=== PATIENT | female | born 1935 | race Caucasian/White ===

== ENCOUNTER 2017-10-17 12:09 | Emergency (ER) | payer MEDICARE ==
[~2017-10-17] VITALS: Ht 162.6 cm; Wt 59.0 kg
[~2017-10-17 12:09] MED LIST: AMLO10TA2 PO; ASPI-482 PO; BUDE10.2 IH; CARV25TA2 PO; CEPH-263 PO; CLOP75TA57 PO; ENAL20TA PO; HYDR-963 PO; LEVO500T59 PO; METF500T4 PO; PANT40TA5 PO; PROAIR HFA8.5 GM INH; PROP150T PO; SUCR1TAB35 PO
[2017-10-17] MEDS ORDERED: ASPIRIN CHEWABLE 81 MG TABLET. PO ONE (12:45)
[2017-10-17] MEDS ORDERED: FAMOTIDINE 20 MG/2 ML VIAL IVP ONE (12:45)
[2017-10-17 12:59] LABS: BASO % 1 % (0-3); EOS % 2 % (0-3); HEMATOCRIT 38.2 % (36.0-47.0); HEMOGLOBIN 12.9 g/dL (12.0-15.5); LYMPH # 1.3 x10^3/uL (1.0-4.8); LYMPH % 18 % (24-48); MEAN CORPUSCULAR HEMOGLOBIN 32 pg (25-35); MEAN CORPUSCULAR HGB CONC 34 g/dL (31-37); MEAN CORPUSCULAR VOLUME 94 fL (79-100); MONO % 4 % (0-9); NEUT % 75 % (31-73); PLATELET COUNT 242 x10^3/uL (140-400); RED BLOOD COUNT 4.05 x10^6/uL (3.50-5.40); RED CELL DISTRIBUTION WIDTH 14.3 % (11.5-14.5); WHITE BLOOD COUNT 7.4 x10^3/uL (4.0-11.0)
[2017-10-17 13:09] LABS: INR 0.9 (0.8-1.1); PROTHROMBIN TIME PATIENT 11.9 SEC (11.7-14.0)
--- NOTE | 2017-10-17 13:15 | RAD ---
Single view chest History:chest pain An AP view of the chest is submitted. Comparison: 03/08/2016. Findings: There is no significant infiltrate, pleural effusion, or pneumothorax. Pericardial cardiac silhouette is similar, borderline enlarged. There is again hiatal hernia. There again has been a median sternotomy. There is again left electronic cardiac device. There is probable emphysema. There is atherosclerotic calcification greater near aortic arch. Impression: 1. No acute radiographic abnormality is identified.
[2017-10-17 13:16] LABS: CALCIUM 8.6 mg/dL (8.5-10.1); CREATININE 1.6 mg/dL (0.6-1.0); GFR 30.7; POTASSIUM 4.3 mmol/L (3.5-5.1)
[2017-10-17 13:22] LABS: ALBUMIN 3.2 g/dL (3.4-5.0); ALBUMIN/GLOBULIN RATIO 0.8 (1.0-1.7); TOTAL BILIRUBIN 0.2 mg/dL (0.2-1.0)
[2017-10-17 13:29] LABS: CREATINE KINASE 65 U/L (26-192)
--- NOTE | 2017-10-17 13:39 | RAD ---
CT ABDOMEN PELVIS WO CONTRAST History:Bilateral flank pain, back pain Technique: Noncontrast CT imaging was performed of the abdomen and pelvis, multiplanar reconstruction images submitted. Exposure: One or more of the following individualized dose reduction techniques were utilized for this exam: 1. Automated exposure control.2. Adjustment of the mA and/or KV according to patient size.3. Use of iterative reconstruction technique. Comparison: 04/30/2015 Findings:There is moderate to large hiatal hernia greater than previously. There has been a median sternotomy. There is mitral annular calcification There is no significant dependent pleural fluid. Accurate evaluation of the abdominal visceral organs is limited without intravenous contrast. There is no obvious focal abnormality of the liver, pancreas, spleen. There is atherosclerotic calcification of abdominal aorta. There is infrarenal abdominal aortic aneurysm up to 3 cm slightly greater than previously. There is atherosclerotic calcification of the iliac arteries bilaterally, left greater than right. There is also plaque near the renal artery origins bilaterally. Gallbladder is absent. There is small 2 to 3 mm left renal calculus. Small calculus right renal pelvis may be vascular in etiology. There is 3 to 4 mm superior right renal calculus. Ureters in the pelvis are difficult to identified. Accurate evaluation of bowel is limited without oral contrast. There is no significant free air or free fluid. There is retained stool in the colon, some questionable mild diffuse colonic wall thickening such as of the descending and ascending colon area appendix is not clearly identified if still present. Urinary bladder is somewhat distended. There is degenerative disc disease greatest at L3-4. There is bone demineralization. Impression: 1.There are small nonobstructive renal calculi bilaterally. There is no significant hydronephrosis. 2. There is mild aneurysmal dilatation of the infrarenal abdominal aorta up to 3 cm. 3. There is moderate to large hiatal hernia. 4. Limited evaluation without oral contrast, mild colonic wall thickening is not excluded as could be seen with mild colitis. There is some retained stool the colon. There is no significant inflammatory type change about the bowel.
[2017-10-17 14:48] LABS: BILIRUBIN,URINE NEGATIVE (NEG); GLUCOSE,URINE 100 mg/dL (NEG); NITRITE,URINE NEGATIVE (NEG); PH,URINE 5.5; PROTEIN,URINE >=300 mg/dL (NEG-TRACE); UROBILINOGEN,URINE 0.2 mg/dL (0.2 mg/dL)
[2017-10-17 14:55] LABS: BACTERIA,URINE MANY /HPF (0-FEW); SQUAMOUS EPITHELIAL CELL,UR MOD /LPF; WBC,URINE >40 /HPF (0-4)
[2017-10-17] MEDS ORDERED: CIPROFLOXACIN 400MG PREMIX 200 ML IV ONE (15:30)
[2017-10-17] MEDS ORDERED: CIPR500T94 PO (16:16)
[2017-10-17] MEDS ORDERED: HYDR-971 PO (16:16)
[2017-10-17] MEDS ORDERED: ONDA4TAB10 SL (16:16)
[2017-10-17] MEDS ORDERED: TAMS0.4C97 PO (16:16)
--- NOTE | 2017-10-17 16:17 | PHYS DOC ---
Past Medical History Past Medical History: Anemia, Arrhythmia, Hypertension, Lung Disease, P.U.D. Past Surgical History: Appendectomy, Cholecystectomy, Coronary Bypass Surgery, Pacemaker, Other Additional Past Surgical Histo: Right femoral bypass, pacer/defib,TOE AMPUTATION Additional Information: 1 PPD Alcohol Use: None Drug Use: None Adult General Chief Complaint Chief Complaint: ABDOMINAL PAIN HPI HPI Patient is a 82 year old female with a history of hypertension, arrhythmias, lung disease, who presents today with left flank pain that began yesterday. Patient denies any nausea vomiting. Denies any hematuria urgency or frequency. She is a very poor historian. She is very hard of hearing. Review of Systems Review of Systems Constitutional: Denies fever or chills [] Eyes: Denies change in visual acuity, redness, or eye pain [] HENT: Denies nasal congestion or sore throat [] Respiratory: Denies cough or shortness of breath [] Cardiovascular: No additional information not addressed in HPI [] GI: Denies abdominal pain, nausea, vomiting, bloody stools or diarrhea [] : Reports left flank pain. Denies dysuria or hematuria [] Musculoskeletal: Denies back pain or joint pain [] Integument: Denies rash or skin lesions [] Neurologic: Denies headache, focal weakness or sensory changes [] All other systems were reviewed and found to be within normal limits, except as documented in this note. Current Medications Current Medications Current Medications Medications (Trade) Dose Ordered Sig/Megan Start Time Stop Time Status Last Admin Dose Admin Aspirin (Children'S Aspirin) 324 mg 1X ONCE 10/17/17 12:45 10/17/17 12:50 DC 10/17/17 13:03 324 MG Ciprofloxacin/ Dextrose 200 ml @ 200 mls/hr 1X ONCE 10/17/17 15:30 10/17/17 16:29 10/17/17 15:25 200 MLS/HR Famotidine (Pepcid Vial) 20 mg 1X ONCE 10/17/17 12:45 10/17/17 12:50 DC 10/17/17 13:04 20 MG Allergies Allergies Allergies Coded Allergies Type Severity Reaction Last Updated Verified No Known Drug Allergies 09/11/15 No Physical Exam Physical Exam Constitutional: Well developed, well nourished, no acute distress, non-toxic appearance. [] HENT: Normocephalic, atraumatic, bilateral external ears normal, oropharynx moist, no oral exudates, nose normal. [] Eyes: PERRLA, EOMI, conjunctiva normal, no discharge. [] Neck: Normal range of motion, no tenderness, supple, no stridor. [] Cardiovascular: Midline old healed incision on the chest. Left upper chest pacemaker. Heart rate regular rhythm. Lungs & Thorax: Bilateral breath sounds clear to auscultation [] Abdomen: Bowel sounds normal, soft, no tenderness, no masses, no pulsatile masses. [] Skin: Warm, dry, no erythema, no rash. [] Back: No tenderness, mild left CVA tenderness. [] Extremities: No tenderness, no cyanosis, no clubbing, ROM intact, no edema. [] Neurologic: Alert and oriented X 3, normal motor function, normal sensory function, no focal deficits noted. [] Psychologic: Affect normal, judgement normal, mood normal. [] Current Patient Data Vital Signs Vital Signs Date Time Temp Pulse Resp B/P (MAP) Pulse Ox O2 Delivery O2 Flow Rate FiO2 10/17/17 14:20 78 17 152/81 (104) 94 Room Air 10/17/17 12:11 97.7 97.7 Lab Values Laboratory Tests Test 10/17/17 12:34 10/17/17 14:30 White Blood Count 7.4 x10^3/uL (4.0-11.0) Red Blood Count 4.05 x10^6/uL (3.50-5.40) Hemoglobin 12.9 g/dL (12.0-15.5) Hematocrit 38.2 % (36.0-47.0) Mean Corpuscular Volume 94 fL (79-100) Mean Corpuscular Hemoglobin 32 pg (25-35) Mean Corpuscular Hemoglobin Concent 34 g/dL (31-37) Red Cell Distribution Width 14.3 % (11.5-14.5) Platelet Count 242 x10^3/uL (140-400) Neutrophils (%) (Auto) 75 % (31-73) H Lymphocytes (%) (Auto) 18 % (24-48) L Monocytes (%) (Auto) 4 % (0-9) Eosinophils (%) (Auto) 2 % (0-3) Basophils (%) (Auto) 1 % (0-3) Neutrophils # (Auto) 5.6 x10^3uL (1.8-7.7) Lymphocytes # (Auto) 1.3 x10^3/uL (1.0-4.8) Monocytes # (Auto) 0.3 x10^3/uL (0.0-1.1) Eosinophils # (Auto) 0.2 x10^3/uL (0.0-0.7) Basophils # (Auto) 0.0 x10^3/uL (0.0-0.2) Prothrombin Time 11.9 SEC (11.7-14.0) Prothrombin Time INR 0.9 (0.8-1.1) Sodium Level 132 mmol/L (136-145) L Potassium Level 4.3 mmol/L (3.5-5.1) Chloride Level 99 mmol/L (98-107) Carbon Dioxide Level 24 mmol/L (21-32) Anion Gap 9 (6-14) Blood Urea Nitrogen 23 mg/dL (7-20) H Creatinine 1.6 mg/dL (0.6-1.0) H Estimated GFR (Cockcroft-Gault) 30.7 BUN/Creatinine Ratio 14 (6-20) Glucose Level 315 mg/dL (70-99) H Calcium Level 8.6 mg/dL (8.5-10.1) Magnesium Level 2.0 mg/dL (1.8-2.4) Total Bilirubin 0.2 mg/dL (0.2-1.0) Aspartate Amino Transferase (AST) 17 U/L (15-37) Alanine Aminotransferase (ALT) 13 U/L (14-59) L Alkaline Phosphatase 83 U/L (46-116) Creatine Kinase 65 U/L (26-192) Creatine Kinase MB (Mass) 1.0 ng/mL (0.0-3.6) Creatine Kinase MB Relative Index % (0-4) Troponin I Quantitative < 0.017 ng/mL (0.000-0.055) PP-Jms-R-Type Natriuretic Peptide 818 pg/mL (0-449) H Total Protein 7.0 g/dL (6.4-8.2) Albumin 3.2 g/dL (3.4-5.0) L Albumin/Globulin Ratio 0.8 (1.0-1.7) L Thyroid Stimulating Hormone (TSH) 6.186 uIU/mL (0.358-3.74) H Urine Collection Type Unknown Urine Color Yellow Urine Clarity Turbid Urine pH 5.5 Urine Specific [place] 1.015 Urine Protein >=300 mg/dL (NEG-TRACE) Urine Glucose (UA) 100 mg/dL (NEG) Urine Ketones (Stick) Negative mg/dL (NEG) Urine Blood Moderate (NEG) Urine Nitrite Negative (NEG) Urine Bilirubin Negative (NEG) Urine Urobilinogen Dipstick 0.2 mg/dL (0.2 mg/dL) Urine Leukocyte Esterase Large (NEG) Urine RBC 6-10 /HPF (0-2) Urine WBC >40 /HPF (0-4) Urine Squamous Epithelial Cells Mod /LPF Urine Bacteria Many /HPF (0-FEW) Laboratory Tests 10/17/17 12:34 Laboratory Tests 10/17/17 12:34 EKG EKG [] Radiology/Procedures Radiology/Procedures []PROCEDURE: CT ABDOMEN PELVIS WO CONTRAST CT ABDOMEN PELVIS WO CONTRAST History:Bilateral flank pain, back pain Technique: Noncontrast CT imaging was performed of the abdomen and pelvis, multiplanar reconstruction images submitted. Exposure: One or more of the following individualized dose reduction techniques were utilized for this exam: 1. Automated exposure control.2. Adjustment of the mA and/or KV according to patient size.3. Use of iterative reconstruction technique. Comparison: 04/30/2015 Findings:There is moderate to large hiatal hernia greater than previously. There has been a median sternotomy. There is mitral annular calcification There is no significant dependent pleural fluid. Accurate evaluation of the abdominal visceral organs is limited without intravenous contrast. There is no obvious focal abnormality of the liver, pancreas, spleen. There is atherosclerotic calcification of abdominal aorta. There is infrarenal abdominal aortic aneurysm up to 3 cm slightly greater than previously. There is atherosclerotic calcification of the iliac arteries bilaterally, left greater than right. There is also plaque near the renal artery origins bilaterally. Gallbladder is absent. There is small 2 to 3 mm left renal calculus. Small calculus right renal pelvis may be vascular in etiology. There is 3 to 4 mm superior right renal calculus. Ureters in the pelvis are difficult to identified. Accurate evaluation of bowel is limited without oral contrast. There is no significant free air or free fluid. There is retained stool in the colon, some questionable mild diffuse colonic wall thickening such as of the descending and ascending colon area appendix is not clearly identified if still present. Urinary bladder is somewhat distended. There is degenerative disc disease greatest at L3-4. There is bone demineralization. Impression: 1.There are small nonobstructive renal calculi bilaterally. There is no significant hydronephrosis. 2. There is mild aneurysmal dilatation of the infrarenal abdominal aorta up to 3 cm. 3. There is moderate to large hiatal hernia. 4. Limited evaluation without oral contrast, mild colonic wall thickening is not excluded as could be seen with mild colitis. There is some retained stool the colon. There is no significant inflammatory type change about the bowel. DICTATED and SIGNED BY: GAB CAZARES MD DATE: 10/17/17 1320 CC: CHRISSY FELTON APRN; NON,STAFF; NALLELY SALDANA MD ~ Course & Med Decision Making Course & Med Decision Making Pertinent Labs and Imaging studies reviewed. (See chart for details) Patient is in the ED with left flank pain. Urine analysis is noted for infection. CBC with no acute findings, CMP with creatinine of 1.6 and BUN 23. Patient seemed to have high creatinine from her previous labs. She was given a liter of fluids in the ED. CT of the abdomen and pelvic was noted for small nonobstructive bilateral renal calculi. She was also noted for mild infrarenal abdominal aneurysm. Patient was instructed to follow-up with the PCP as well as expenditure requisition clerk for the aneurysm. She was given Cipro in the ED and discharged with Cipro. She was instructed to push fluids. She was also discharged with Flomax. Her pain is well controlled. She was provided return precautions and discharged in stable condition. Dragon Disclaimer Dragon Disclaimer This electronic medical record was generated, in whole or in part, using a voice recognition dictation system. Departure Departure Impression: Primary Impression: Renal calculi Additional Impressions: Pyelonephritis Aneurysm Disposition: 01 HOME, SELF-CARE Condition: STABLE Referrals: NALLELY SALDANA MD (PCP) follow up in the course of this week Patient Instructions: Kidney Stones, Pyelonephritis, Adult, [id number] Additional Instructions: You were seen for flank pain. Your CT of the abdomen and pelvic was noted for nonobstructing bilateral renal calculi/kidney stones. You also have infection in your urine. Take the antibiotics as prescribed. Take Flomax as prescribed. Push fluids. Take the pain medicine as needed for pain. Your Ct was noted for mild aneurysmal dilatation of the infrarenal abdominal aorta . This can be followed up with your expenditure requisition clerk and primary care doctor. Please return to the ED at any point your symptoms worsen. Scripts Hydrocodone/Apap 5-325 (NORCO 5-325 TABLET) 1 Each Tablet 1 TAB PO Q6-8HRS Y for PAIN, #14 TAB Prov: CHRISSY FELTON APRN 10/17/17 Ondansetron (ZOFRAN ODT) 4 Mg Tab.rapdis 1 TAB SL Q8HRS, #15 TAB Prov: CHRISSY FELTON APRN 10/17/17 Ciprofloxacin Hcl (CIPRO) 500 Mg Tablet 1 TAB PO BID, #14 TAB Prov: CHRISSY FELTON APRN 10/17/17 Tamsulosin Hcl (FLOMAX) 0.4 Mg Cap.er.24h 1 CAP PO DAILY, #6 CAP 0 Refills Prov: CHRISSY FELTON APRN 10/17/17 Problem Qualifiers CHRISSY FELTON APRN Oct 17, 2017 16:16
[2017-10-17 16:25] VITALS: BP 184/99
--- NOTE | 2017-10-18 06:09 | EKG ---
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
[2017-10-18] MEDS ORDERED: CIPROFLOXACIN 400MG PREMIX 200 ML IV SCH (15:00)
--- NOTE | 2017-10-20 16:25 | VNOTE ---
CALL BACK NOTE CALL BACK Microbiology 10/17/17 Urine Culture - Final, Complete 10/17/17 Urine Culture Result 1 ([place]) - Final, Complete 10/17/17 Antimicrobic Susceptibility - Final, Complete Patient was put on Cipro for pyelonephritis, culture shows she is resistant to it. Called patient left voicemail. CHRISSY FELTON APRN Oct 20, 2017 16:25
== END 2017-10-17 16:41 | disposition home or self-care (01) ==
LOC: ER 12:09
DX: N20.0 Calculus of kidney (principal); N12 Tubulo-interstitial nephritis, not specified as acute or chronic; I71.4 Abdominal aortic aneurysm, without rupture; I10 Essential (primary) hypertension; F17.200 Nicotine dependence, unspecified, uncomplicated; Z86.2 Personal history of diseases of the blood and blood-forming organs and certain disorders involving the immune mechanism; Z87.11 Personal history of peptic ulcer disease; Z90.49 Acquired absence of other specified parts of digestive tract; Z95.0 Presence of cardiac pacemaker; Z95.1 Presence of aortocoronary bypass graft
CPT/HCPCS: 36415; 71010; 74176; 80053; 81001; 82553; 83735; 83880; 84443; 84484; 85025; 85610; 87086; 87186; 93005; 96365; 96375; 99285; J0744; S0028

== ENCOUNTER 2017-11-03 11:29 | Emergency (ER) | payer MEDICARE ==
[~2017-11-03] VITALS: Ht 160 cm; Wt 59.9 kg
[~2017-11-03 11:29] MED LIST changes: +CIPR500T94 PO; +HYDR-971 PO; +ONDA4TAB10 SL; +TAMS0.4C97 PO
[2017-11-03] MEDS ORDERED: CYCLOBENZAPRINE 10 MG TABLET. PO ONE (12:00)
[2017-11-03] MEDS ORDERED: KETOROLAC 60 MG/2 ML INJ. IM ONE (12:00)
[2017-11-03] MEDS ORDERED: MORPHINE SULFATE 10 MG/ML VIAL. IM ONE (12:00)
--- NOTE | 2017-11-03 12:10 | PHYS DOC ---
Past Medical History Past Medical History: Anemia, Arrhythmia, Hypertension, Lung Disease, P.U.D. Past Surgical History: Appendectomy, Cholecystectomy, Coronary Bypass Surgery, Pacemaker, Other Additional Past Surgical Histo: Right femoral bypass, pacer/defib,TOE AMPUTATION Alcohol Use: None Drug Use: None Adult General Chief Complaint Chief Complaint: BACK PAIN OR INJURY HPI HPI Patient is a 82 year old female with a history of hypertension, anemia, PUD, who presents today with mild to moderate left low back pain chronic in nature but worse in the last 1 week. Patient denies any known injury. Denies any pain radiating to bilateral lower extremities. She states her pain is worse on activities. She states her PCP Dr. Nallely Gonzalez sent her to the ED to get a pain shot. She is currently on hydrocodone. Patient denies any loss of bowel bladder function. Review of Systems Review of Systems Constitutional: Denies fever or chills : Denies dysuria or hematuria [] Musculoskeletal: Mild to moderate left low back pain Integument: Denies rash or skin lesions [] Neurologic: Denies headache, focal weakness or sensory changes [] All other systems were reviewed and found to be within normal limits, except as documented in this note. Current Medications Current Medications Current Medications Medications (Trade) Dose Ordered Sig/Megan Start Time Stop Time Status Last Admin Dose Admin Cyclobenzaprine HCl (Flexeril) 10 mg 1X ONCE 11/03/17 12:00 11/03/17 12:02 DC Ketorolac Tromethamine (Toradol Im) 30 mg 1X ONCE 11/03/17 12:00 11/03/17 12:01 DC Morphine Sulfate 5 mg 1X ONCE 11/03/17 12:00 11/03/17 12:01 DC Allergies Allergies Allergies Coded Allergies Type Severity Reaction Last Updated Verified No Known Drug Allergies 09/11/15 No Physical Exam Physical Exam Constitutional: Well developed, well nourished, no acute distress, non-toxic appearance. [] Abdomen: Bowel sounds normal, soft, no tenderness, no masses, no pulsatile masses. [] Skin: Warm, dry, no erythema, no rash. [] Back: Scoliosis noted on exam. Slight tenderness on the left lumbar spine diffusely. No midline lumbar spine tenderness, no CVA tenderness. [] Extremities: No tenderness, no cyanosis, no clubbing, ROM intact, no edema. [] Neurologic: Alert and oriented X 3, normal motor function, normal sensory function, no focal deficits noted. [] Psychologic: Affect normal, judgement normal, mood normal. [] Current Patient Data Vital Signs Vital Signs Date Time Temp Pulse Resp B/P (MAP) Pulse Ox O2 Delivery O2 Flow Rate FiO2 11/03/17 11:50 98.0 83 18 96 Room Air 98.0 EKG EKG [] Radiology/Procedures Radiology/Procedures [] Course & Med Decision Making Course & Med Decision Making Pertinent Labs and Imaging studies reviewed. (See chart for details) Patient is in the ED requesting pain shot for chronic back pain. She is currently on hydrocodone. She states PCP sent her to the ED for the pain shot. She was given morphine Toradol and cyclobenzaprine and discharge. She was instructed to continue taking her hydrocodone. She was given prescription for cyclobenzaprine. Given instructions to follow-up with the pain clinic. Dragon Disclaimer Dragon Disclaimer This electronic medical record was generated, in whole or in part, using a voice recognition dictation system. Departure Departure Impression: Primary Impression: Chronic low back pain Disposition: 01 HOME, SELF-CARE Condition: STABLE Referrals: NALLELY SALDANA MD (PCP) follow up as soon as you can BHARGAVI YBARRA MD follow up in one week Patient Instructions: Back Pain, Adult, [id number] Additional Instructions: You were seen for chronic back pain. Continue taking hydrocodone at home. We sent you home with cyclobenzaprine which is a muscle relaxer. Take it as needed. Follow-up with your own doctor in 1-2 weeks. Scripts Cyclobenzaprine Hcl (CYCLOBENZAPRINE HCL) 10 Mg Tablet 1 TAB PO TID, #30 TAB Prov: CHRISSY FELTON APRN 11/03/17 Problem Qualifiers Primary Impression: Chronic low back pain Back pain laterality: left Sciatica presence: without sciatica Qualified Codes: M54.5 - Low back pain; G89.29 - Other chronic pain CHRISSY FELTON APRN Nov 03, 2017 12:10
[2017-11-03] MEDS ORDERED: CYCL10TA2 PO (12:15)
[2017-11-03] MEDS ORDERED: HYDROcodone/APAP 5/325MG 1 TAB TABLET ONE (12:24)
[2017-11-03 13:01] VITALS: BP 138/68
== END 2017-11-03 13:01 | disposition home or self-care (01) ==
LOC: ER 11:29
DX: G89.29 Other chronic pain (principal); M54.5 Low back pain; I10 Essential (primary) hypertension; Z87.11 Personal history of peptic ulcer disease; Z95.0 Presence of cardiac pacemaker; Z90.49 Acquired absence of other specified parts of digestive tract; Z95.1 Presence of aortocoronary bypass graft
CPT/HCPCS: 96372; 99284; J1885; J2270

== ENCOUNTER → 2017-11-09 | Outpatient (CLI) | payer MEDICARE ==
[2017-11-03 13:01] VITALS: BP 138/68
[~2017-11-09] MED LIST changes: +CYCL10TA2 PO
--- NOTE | 2017-11-09 11:57 | RAD ---
Indication: Back pain. Compression fractures of T7-T10. Technique: CT of the thoracic spine without IV contrast with multiplanar reformats. Comparison: Plain film from 10/28/2017 Findings: Compression deformity of the T7 vertebral body noted with loss of more than 50% of body height. There is no retropulsion in the spinal canal there is no involvement of the posterior elements. There is no evidence of soft tissue component associated with this compression deformity. No other compression deformities noted. Diffuse osteopenia. Mild multilevel intervertebral disc space narrowing with endplate sclerosis and small osteophyte formation compatible with degenerative disc disease. There are no blastic or lytic lesions in the thoracic spine. The facet joints are in normal anatomic alignment. Biapical pleural scarring noted. Subsegmental atelectasis or scarring seen in the left lower lobe. Diffuse atherosclerotic disease of the thoracic and abdominal aorta are noted. Large sliding type hiatal hernia. 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 Nonobstructing bilateral renal stones. Impression: 1. Most likely an osteoporotic fracture of the T7 vertebral body with no retropulsion in the spinal canal. 2. Large sliding sidle hernia. 3. Diffuse advanced atherosclerotic disease of the aorta. PQRS Compliance Statement: One or more of the following individualized dose reduction techniques were utilized for this examination: 1. Automated exposure control 2. Adjustment of the mA and/or kV according to patient size 3. Use of iterative reconstruction technique
--- NOTE | 2017-11-09 14:29 | RAD ---
Nuclear medicine bone scan Indication: Compression fracture of the thoracic spine Technique: Planar anterior, posterior and lateral views of the thoracic spine obtained after infusion of 25.5 mCi of technetium 99m MDP. Comparison: Same day the thoracic spine Findings: Focal intense uptake of the benefit of pharmaceutical is seen in T7 vertebral body corresponding to compression deformity seen on the same day CT thoracic spine. No other areas of radial pharmaceutical uptake. Impression: Findings consistent with acute to subacute T7 compression fracture.
== END | disposition home or self-care (01) ==
LOC: NM 08:15
PROVIDERS: ATTEND Surgery
DX: M48.54XA Collapsed vertebra, not elsewhere classified, thoracic region, initial encounter for fracture (principal); I70.0 Atherosclerosis of aorta; N20.0 Calculus of kidney; K44.9 Diaphragmatic hernia without obstruction or gangrene; E11.9 Type 2 diabetes mellitus without complications; Z95.0 Presence of cardiac pacemaker; Z87.891 Personal history of nicotine dependence; Z79.01 Long term (current) use of anticoagulants
CPT/HCPCS: 72128; 78300; 96374; A9503

== ENCOUNTER 2017-11-16 08:03 | Outpatient (CLI) | payer MEDICARE ==
[~2017-11-16] VITALS: Ht 162.6 cm; Wt 59.0 kg
[2017-11-16] VITALS (9 sets, daily range): BP systolic 128–167; BP diastolic 69–95
[2017-11-16 08:51] LABS: BASO % 1 % (0-3); EOS % 2 % (0-3); HEMOGLOBIN 12.9 g/dL (12.0-15.5); LYMPH # 1.1 x10^3/uL (1.0-4.8); LYMPH % 19 % (24-48); MEAN CORPUSCULAR HEMOGLOBIN 31 pg (25-35); MEAN CORPUSCULAR HGB CONC 34 g/dL (31-37); MEAN CORPUSCULAR VOLUME 92 fL (79-100); MONO % 10 % (0-9); NEUT % 68 % (31-73); PLATELET COUNT 277 x10^3/uL (140-400); RED BLOOD COUNT 4.14 x10^6/uL (3.50-5.40); RED CELL DISTRIBUTION WIDTH 14.2 % (11.5-14.5); WHITE BLOOD COUNT 5.8 x10^3/uL (4.0-11.0)
[2017-11-16 09:01] LABS: PROTHROMBIN TIME PATIENT 12.4 SEC (11.7-14.0)
[2017-11-16 09:13] LABS: CALCIUM 8.4 mg/dL (8.5-10.1); CREATININE 1.3 mg/dL (0.6-1.0); POTASSIUM 4.5 mmol/L (3.5-5.1)
[2017-11-16] MEDS ORDERED: GLIP5TAB10 PO (09:39)
[2017-11-16] MEDS ORDERED: LIDOCAINE WITH 8.4% SOD BICARB 3 ML DISP.SYRIN. IJ ONE ×2 (10:12→11:15)
[2017-11-16] MEDS ORDERED: fentaNYL PF VIAL 100 MCG/2 ML VIAL ONE ×2 (10:14→10:54)
[2017-11-16] MEDS ORDERED: MIDAZOLAM HCL/PF 2 MG/2 ML VIAL. ONE ×2 (10:14→10:54)
[2017-11-16] MEDS ORDERED: IOHEXOL 240 MG/ML 50ML VIAL. ONE (10:51)
[2017-11-16] MEDS ORDERED: LABETALOL 20 MG/4 ML DISP.SYRIN. ONE (11:09)
[2017-11-16] MEDS ORDERED: fentaNYL PF VIAL 100 MCG/2 ML VIAL IV ONE (11:15)
[2017-11-16] MEDS ORDERED: LABETALOL 20 MG/4 ML DISP.SYRIN. IVP ONE (11:15)
[2017-11-16] MEDS ORDERED: IOHEXOL 240 MG/ML 50ML VIAL. IJ ONE (11:15)
[2017-11-16] MEDS ORDERED: MIDAZOLAM HCL/PF 2 MG/2 ML VIAL. IV ONE (11:15)
--- NOTE | 2017-11-16 12:15 | PDOC ---
MODERATE SEDATION ASSESSMENT RISKS/ALTERNATIVES Risks/Alternatives Risks and alternatives of this type of sedation and procedure discussed with: RISK/ALTERNATIVES: Patient H & P ON CHART H & P H & P on chart and reviewed for co-morbid conditions and appropriate labs. H&P ON CHART: Yes STATUS PREG STATUS ASSESSED: Yes MEDS/ALLERGIES REVIEWED Meds/Allergies Reviewed Medications and Allergies including time and route of recently administered narcotics and sedatives. MEDS/ALLERGIES REVIEWED: Yes ASA RATING ASA RATING: II AIRWAY ASSESSMENT Airway Assessment Airway patency, oral function limitations, presence of caps, crowns, dentures, partials, and ability to extend neck assessed. AIRWAY ASSESSMENT: Yes MALLAMPATI SCORE MALLAMPATI SCORE: II PRE-SEDATION ASSESSMENT PRE-SEDATION ASSESSMENT: Yes KIRA WEBB MD Nov 16, 2017 12:15
--- NOTE | 2017-11-16 12:15 | PDOC ---
BRIEF OPERATIVE NOTE Pre-Op Diagnosis T7 compression fracture and pain Post-Op Diagnosis same Procedure Performed T7 kyphoplasty Surgeon [place] Anesthesia Type: Conscious Sedation Findings T7 compression fracture and kyphoplasty Complications No immediate KIRA WEBB MD Nov 16, 2017 12:15
--- NOTE | 2017-11-16 12:16 | PDOC1 ---
History and Physical Date of Procedure Date of Admission Indication Indication T7 compression fracture, osteoporosis and pain History of Present Illness Reason for Visit same Past Medical History Past Medical History see nursing assessment Current Medications Current Medications Current Medications Lidocaine/Sodium Bicarbonate (Buffered Lidocaine 1%) 3 ml STK-MED ONCE IJ ; Start 11/16/17 at 10:12; Stop 11/16/17 at 10:13; Status DC Cefazolin Sodium 50 ml @ As Directed STK-MED ONCE IV ; Start 11/16/17 at 10:14 ; Stop 11/16/17 at 10:15; Status DC Midazolam HCl (Versed) 2 mg STK-MED ONCE .ROUTE ; Start 11/16/17 at 10:14; Stop 11/16/17 at 10:15; Status DC Fentanyl Citrate (Fentanyl 2ml Vial) 100 mcg STK-MED ONCE .ROUTE ; Start at 10:14; Stop 11/16/17 at 10:15; Status DC Iohexol (Omnipaque 240 Mg/ml) 50 ml STK-MED ONCE .ROUTE ; Start 11/16/17 at 10: 51; Stop 11/16/17 at 10:52; Status DC Midazolam HCl (Versed) 2 mg STK-MED ONCE .ROUTE ; Start 11/16/17 at 10:54; Stop 11/16/17 at 10:55; Status DC Fentanyl Citrate (Fentanyl 2ml Vial) 100 mcg STK-MED ONCE .ROUTE ; Start at 10:54; Stop 11/16/17 at 10:55; Status DC Labetalol HCl (Normodyne) 20 mg STK-MED ONCE .ROUTE ; Start 11/16/17 at 11:09; Stop 11/16/17 at 11:10; Status DC Lidocaine/Sodium Bicarbonate (Buffered Lidocaine 1%) 3 ml 1X ONCE IJ Last administered on 11/16/17 11:26; Start 11/16/17 at 11:15; Stop 11/16/17 at 11 :18; Status DC Midazolam HCl (Versed) 2 mg 1X ONCE IV Last administered on 11/16/17 11:27; Start 11/16/17 at 11:15; Stop 11/16/17 at 11:18; Status DC Fentanyl Citrate (Fentanyl 2ml Vial) 100 mcg 1X ONCE IV Last administered on 11/16/17 11:27; Start 11/16/17 at 11:15; Stop 11/16/17 at 11:18; Status DC Cefazolin Sodium 50 ml @ 100 mls/hr 1X ONCE IV Last administered on 11:25; Start 11/16/17 at 11:15; Stop 11/16/17 at 11:44; Status DC Iohexol (Omnipaque 240 Mg/ml) 50 ml 1X ONCE IJ Last administered on 11:26; Start 11/16/17 at 11:15; Stop 11/16/17 at 11:18; Status DC Labetalol HCl (Normodyne) 20 mg 1X ONCE IVP Last administered on 11/16/17 11 :34; Start 11/16/17 at 11:15; Stop 11/16/17 at 11:18; Status DC Active Scripts Active Reported Glipizide 5 Mg Tablet 1 Tab PO BID Carvedilol 25 Mg Tablet 0.5 Tab PO BID Plavix (Clopidogrel Bisulfate) 75 Mg Tablet 1 Tab PO DAILY Aspir 81 (Aspirin) 81 Mg Tablet.dr 1 Tab PO QEVNG Proair Hfa Inhaler (Albuterol Sulfate) 8.5 Gm Hfa.aer.ad 2 Puff INH Q4-6HRS PRN Pantoprazole Sodium 40 Mg Tablet.dr 40 Mg PO HS Amlodipine Besylate 10 Mg Tablet 10 Mg PO HS Allergies Allergies: Coded Allergies: No Known Drug Allergies (Unverified , 09/11/15) Physical Exam Vital Signs Vital Signs Date Time Temp Pulse Resp B/P (MAP) Pulse Ox O2 Delivery O2 Flow Rate FiO2 11/16/17 11:48 21 96 Room Air 11/16/17 11:34 102 194/106 11/16/17 11:30 94.0 11/16/17 09:15 98.3 98.3 Other see nursing assessment Assessment Assessment T7 debilitating compression fracture Problems: Plan Plan T7 kyphoplasty KIRA WEBB MD Nov 16, 2017 12:16
[2017-11-16] MEDS ORDERED: HYDROcodone/APAP 10/325 1 TAB TABLET PO ONE (12:45)
--- NOTE | 2017-11-17 10:20 | RAD ---
Procedure: Fluoroscopic guided kyphoplasty of T7 Clinical Indication: Adult female with debilitating wedge compression fracture of T7, osteoporosis Sedation: Conscious sedation was administered for 62 minutes. The patient was monitored by a qualified independent observer throughout the time of sedation. Please refer to the medical record for exact doses of medications utilized to achieve moderate sedation. Antibiotics: Antibiotic was administered intravenously within 1 hour of the procedure start time. Exposure: Kerma-Area Product: 963.8 Gycm2 Contrast: None Sterility: All elements of maximal sterile barrier technique including the use of a cap, mask, sterile gown, sterile gloves, large sterile sheet, appropriate hand hygiene, and 2% chlorhexidine for cutaneous antisepsis (or acceptable alternative antiseptic per current guidelines) were followed for this procedure. Consent: The procedure was explained in its entirety to the patient or the patients designated lead customer service representative by a member of the treatment team, including a discussion of the risks, benefits and commonly accepted alternatives to the procedure, as well as the expected consequences of no therapy whatsoever. Discussion of the risks included, but was not limited to, those that are most frequent and those that are rare but possibly severe or life-threatening, as well as the possibility of unforeseen complications. Technique and Findings: Following informed consent, the patient was prepped and draped in usual sterile fashion. 1% lidocaine was used to achieve local anesthesia over the area of interest. A small dermatotomy was made. Under fluoroscopic guidance, a 10-gauge kyphoplasty needle was advanced in a left transpedicular fashion to the anterior aspect of the T7 vertebral body. A balloon was then used to create a cavity. Polymethylmethacrylate was instilled under fluoroscopic guidance into the vertebral body. The needle was then removed and hemostasis was achieved with manual compression. Complications: No immediate Impression: 1. Fluoroscopic guided kyphoplasty of T7 as described.
== END 2017-11-16 14:00 | disposition home or self-care (01) ==
LOC: INTRAD 08:03
PROVIDERS: ATTEND Surgery
DX: S22.060A Wedge compression fracture of T7-T8 vertebra, initial encounter for closed fracture (principal); X58.XXXA Exposure to other specified factors, initial encounter; Y93.89 Activity, other specified; Y92.89 Other specified places as the place of occurrence of the external cause; Y99.8 Other external cause status; M81.0 Age-related osteoporosis without current pathological fracture; I11.0 Hypertensive heart disease with heart failure; I50.9 Heart failure, unspecified; E11.9 Type 2 diabetes mellitus without complications; F17.200 Nicotine dependence, unspecified, uncomplicated; Z90.49 Acquired absence of other specified parts of digestive tract; Z79.82 Long term (current) use of aspirin; Z90.710 Acquired absence of both cervix and uterus; Z86.39 Personal history of other endocrine, nutritional and metabolic disease
CPT/HCPCS: 22513; 36415; 80048; 85025; 85610; 99152; 99153; C1758; J0690; J2250; J3010; J3490; Q9966

== ENCOUNTER 2018-07-30 08:10 | Inpatient (IN) | payer MEDICARE ==
[~2018-07-30] VITALS: Ht 160 cm; Wt 50.9 kg
[~2018-07-30 08:10] MED LIST changes: -AMLO10TA2 PO; +AMLO10TA6 PO; +GLIP5TAB10 PO; +METF500T16 PO; -METF500T4 PO
--- NOTE | 2018-07-30 08:42 | RAD ---
EXAM: CT Head without IV contrast CLINICAL HISTORY: RIGHT SIDE WEAKNESS, SPEECH PROBLEMS, NO PRIORS COMPARISON: None. TECHNIQUE: Routine CT of the head without contrast. Soft tissues and bone windows were reviewed. PQRS compliance statement - One or more of the following individualized dose reduction techniques were utilized for this study: 1. Automated exposure control 2. Adjustment of the mA and/or kV according to patient size 3. Use of iterative reconstruction technique FINDINGS: There is no evidence of hemorrhage, mass or extra-axial fluid collection. Thompson-white differentiation is maintained with no evidence of edema. There are non-specific confluent regions of hypoattenuation in the periventricular and subcortical white matter of the cerebral hemispheres as well as within the deep white matter and lucia. There is no mass effect or shift of the intracranial structures. The ventricles and cerebral sulci are prominent for the patients stated age consistent with generalized cerebral volume loss. The cerebellum and brainstem are otherwise unremarkable. The calvarium demonstrates no evidence of fracture or focal lesion. There is normal aeration of the visualized paranasal sinuses and mastoid air cells. The visualized portions of the orbits are normal. Atherosclerotic calcifications of the intracranial internal carotid and vertebral arteries is seen. IMPRESSION: 1. No evidence for acute intracranial hemorrhage. 2. White matter hypoattenuation as described above, favor changes of chronic small vessel disease. Findings no evidence of acute intracranial hemorrhage discussed with Dr. Resendez at 07/30/18, 18 Electronically signed by: [place] MD (07/30/2018 8:38 AM) [facility]
--- NOTE | 2018-07-30 08:54 | PHYS DOC ---
Past Medical History Past Medical History: Anemia, Arrhythmia, Hypertension, Lung Disease, P.U.D. Past Surgical History: Appendectomy, Cholecystectomy, Coronary Bypass Surgery, Pacemaker, Other Additional Past Surgical Histo: Right femoral bypass, pacer/defib,TOE AMPUTATION Alcohol Use: None Drug Use: None Adult General Chief Complaint Chief Complaint: NEURO SYMPTOMS/DEFICITS HPI HPI Patient is a 83 year old female who presents to ER today for evaluation of right-sided weakness. She woke up this morning around midnight, tried to go to the bathroom when she had trouble walking to the bathroom, unsteady gait. Patient had right-sided weakness. Patient decided to stay at home, woke up this morning and asked her family to take her here for evaluation. She denies any headache, no chest pain. Patient has history of Valve problem, is on Plavix. Patient had a pacemaker. Review of Systems Review of Systems Constitutional: Denies fever or chills [] Eyes: Denies change in visual acuity, redness, or eye pain [] HENT: Denies nasal congestion or sore throat [] Respiratory: Denies cough or shortness of breath [] Cardiovascular: No additional information not addressed in HPI [] GI: Denies abdominal pain, nausea, vomiting, bloody stools or diarrhea [] : Denies dysuria or hematuria [] Musculoskeletal: Denies back pain or joint pain [] Integument: Denies rash or skin lesions [] Neurologic: Denies headache, Positive for right side focal weakness and numbness, unsteady gait. Endocrine: Denies polyuria or polydipsia [] All other systems were reviewed and found to be within normal limits, except as documented in this note. Allergies Allergies Allergies Coded Allergies Type Severity Reaction Last Updated Verified No Known Drug Allergies 09/11/15 No Physical Exam Physical Exam Constitutional: Well developed, well nourished, no acute distress, non-toxic appearance. [] HENT: Normocephalic, atraumatic, bilateral external ears normal, oropharynx moist, no oral exudates, nose normal. [] Eyes: PERRLA, EOMI, conjunctiva normal, no discharge. [] Neck: Normal range of motion, no tenderness, supple, no stridor. [] Cardiovascular:Heart rate regular rhythm, no murmur [] Lungs & Thorax: Bilateral breath sounds with expiratory wheezing. Abdomen: Bowel sounds normal, soft, no tenderness, no masses, no pulsatile masses. [] Skin: Warm, dry, no erythema, no rash. [] Back: No tenderness, no CVA tenderness. [] Extremities: No tenderness, no cyanosis, no clubbing, ROM intact, no edema. [] Neurologic: Alert and oriented X 3, Right side weaker than left side with altered sensation and mild slurred speech. [] Psychologic: Affect normal, judgement normal, mood normal. [] Current Patient Data Vital Signs Vital Signs Date Time Temp Pulse Resp B/P (MAP) Pulse Ox O2 Delivery O2 Flow Rate FiO2 07/30/18 08:10 97.8 79 20 173/77 (109) 96 Room Air 97.8 Lab Values Laboratory Tests Test 07/30/18 08:20 07/30/18 08:45 Glucose (Fingerstick) 89 mg/dL (70-99) White Blood Count 5.2 x10^3/uL (4.0-11.0) Red Blood Count 3.82 x10^6/uL (3.50-5.40) Hemoglobin 12.1 g/dL (12.0-15.5) Hematocrit 35.2 % (36.0-47.0) L Mean Corpuscular Volume 92 fL (79-100) Mean Corpuscular Hemoglobin 32 pg (25-35) Mean Corpuscular Hemoglobin Concent 34 g/dL (31-37) Red Cell Distribution Width 14.7 % (11.5-14.5) H Platelet Count 243 x10^3/uL (140-400) Sodium Level 138 mmol/L (136-145) Potassium Level 4.7 mmol/L (3.5-5.1) Chloride Level 106 mmol/L (98-107) Carbon Dioxide Level 20 mmol/L (21-32) L Anion Gap 12 (6-14) Blood Urea Nitrogen 15 mg/dL (7-20) Creatinine 1.2 mg/dL (0.6-1.0) H Estimated GFR (Cockcroft-Gault) 42.7 Glucose Level 87 mg/dL (70-99) Calcium Level 8.8 mg/dL (8.5-10.1) Total Bilirubin 0.2 mg/dL (0.2-1.0) Direct Bilirubin 0.1 mg/dL (0.0-0.2) Aspartate Amino Transferase (AST) 15 U/L (15-37) Alanine Aminotransferase (ALT) 12 U/L (14-59) L Alkaline Phosphatase 81 U/L (46-116) Total Protein 7.2 g/dL (6.4-8.2) Albumin 3.3 g/dL (3.4-5.0) L Laboratory Tests 07/30/18 08:45 Laboratory Tests 07/30/18 08:45 EKG EKG ekg: no STEMI, RATE: 80 BPM Radiology/Procedures Radiology/Procedures [[facility] [address] [place] [address] IMAGING REPORT Signed PATIENT: MITCH STEWART ACCOUNT: [id number] : 1935 LOCATION: ER AGE: 83 SEX: F EXAM STATUS: PRE ER ORD. PHYSICIAN: YESI JULIAN DO REASON: left side weakness PROCEDURE: CT CODE STROKE HEAD WO EXAM: CT Head without IV contrast CLINICAL HISTORY: RIGHT SIDE WEAKNESS, SPEECH PROBLEMS, NO PRIORS COMPARISON: None. TECHNIQUE: Routine CT of the head without contrast. Soft tissues and bone windows were reviewed. PQRS compliance statement - One or more of the following individualized dose reduction techniques were utilized for this study: 1. Automated exposure control 2. Adjustment of the mA and/or kV according to patient size 3. Use of iterative reconstruction technique FINDINGS: There is no evidence of hemorrhage, mass or extra-axial fluid collection. Thompson-white differentiation is maintained with no evidence of edema. There are non-specific confluent regions of hypoattenuation in the periventricular and subcortical white matter of the cerebral hemispheres as well as within the deep white matter and lucia. There is no mass effect or shift of the intracranial structures. The ventricles and cerebral sulci are prominent for the patients stated age consistent with generalized cerebral volume loss. The cerebellum and brainstem are otherwise unremarkable. The calvarium demonstrates no evidence of fracture or focal lesion. There is normal aeration of the visualized paranasal sinuses and mastoid air cells. The visualized portions of the orbits are normal. Atherosclerotic calcifications of the intracranial internal carotid and vertebral arteries is seen. IMPRESSION: 1. No evidence for acute intracranial hemorrhage. 2. White matter hypoattenuation as described above, favor changes of chronic small vessel disease. Findings no evidence of acute intracranial hemorrhage discussed with Dr. Julian at 07/30/18, 0821 Electronically signed by: Lake Piper MD (07/30/2018 8:38 AM) [facility] DICTATED and SIGNED BY: LAKE PIPER MD DATE: 07/30/18 0834 ] Impressions: ACUTE CVA Course & Med Decision Making Course & Med Decision Making Pertinent Labs and Imaging studies reviewed. (See chart for details) Consulted with Neurologist, Dr. Lynn at 8:53 am, recommended no TPA, admit to the hospital for stroke work up . CALLED DR. PAIGE, AGREED TO ADMIT PATIENT Dragon Disclaimer Dragon Disclaimer This electronic medical record was generated, in whole or in part, using a voice recognition dictation system. NIHSS Administer stroke scale items in the order listed. Record performance in each category after each subscale exam. Do not go back and change scores. Follow directions provided for each exam technique. Scores should reflect what the patient does, not what the clinician thinks the patient can do. The clinician should record answers while administering the exam and work quickly. Except where indicated, the patient should not be coached (i.e., repeated requests to patient to make a special effort). 1a. Level of Consciousness: The field traffic investigator must choose a response if a full evaluation is prevented by such obstacles as an endotracheal tube, language barrier, orotracheal trauma/bandages. A 3 is scored only if the patient makes no movement (other than reflexive posturing) in response to noxious stimulation. 0 = Alert; keenly responsive. 1 = Not alert; but arousable by minor stimulation to obey, answer, or respond. 2 = Not alert; requires repeated stimulation to attend, or is obtunded and requires strong or painful stimulation to make movements (not stereotyped). 3 = Responds only with reflex motor or autonomic effects or totally unresponsive, flaccid, and areflexic. 0 1b. LOC Questions: The patient is asked the month and his/her age. The answer must be correct - there is no partial credit for being close. Aphasic and stuporous patients who do not comprehend the questions will score 2. Patients unable to speak because of endotracheal intubation, orotracheal trauma, severe dysarthria from any cause, language barrier, or any other problem not secondary to aphasia are given a 1. It is important that only the initial answer be graded and that the examiner not "help" the patient with verbal or non-verbal cues. 0 = Answers both questions correctly. 1 = Answers one question correctly. 2 = Answers neither question correctly. 0 1c. LOC Commands: The patient is asked to open and close the eyes and then to rheostat assembler and release the non-paretic hand. Substitute another one step command if the hands cannot be used. Credit is given if an unequivocal attempt is made but not completed due to weakness. If the patient does not respond to command, the task should be demonstrated to him or her (pantomime), and the result scored (i.e., follows none, one or two commands). Patients with trauma, amputation, or other physical impediments should be given suitable one-step commands. Only the first attempt is scored. 0 = Performs both tasks correctly. 1 = Performs one task correctly. 2 = Performs neither task correctly. 0 2. Best Gaze: Only horizontal eye movements will be tested. Voluntary or reflexive (oculocephalic) eye movements will be scored, but caloric testing is not done. If the patient has a conjugate deviation of the eyes that can be overcome by voluntary or reflexive activity, the score will be 1. If a patient has an isolated peripheral nerve paresis (CN III, IV or ), score a 1. Gaze is testable in all aphasic patients. Patients with ocular trauma, bandages, pre-existing blindness, or other disorder of visual acuity or martinez should be tested with reflexive movements, and a choice made by the field traffic investigator. Establishing eye contact and then moving about the patient from side to side will occasionally clarify the presence of a partial gaze palsy. 0 = Normal. 1 = Partial gaze palsy; gaze is abnormal in one or both eyes, but forced deviation or total gaze paresis is not present. 2 = Forced deviation, or total gaze paresis not overcome by the oculocephalic maneuver. 0 Interval: [ ] Baseline [ ] 2 hours post treatment [ ] 24 hours post onset of symptoms 20 minutes [ ] 7-10 days [ ] 3 months [ ] Other ( ) 3. Visual: Visual martinez (upper and lower quadrants) are tested by confrontation, using finger counting or visual threat, as appropriate. Patients may be encouraged, but if they look at the side of the moving fingers appropriately, this can be scored as normal. If there is unilateral blindness or enucleation, visual martinez in the remaining eye are scored. Score 1 only if a clear-cut asymmetry, including quadrantanopia, is found. If patient is blind from any cause, score 3. Double simultaneous stimulation is performed at this point. If there is extinction, patient receives a 1, and the results are used to respond to item 11. 0 = No visual loss. 1 = Partial hemianopia. 2 = Complete hemianopia. 3 = Bilateral hemianopia (blind including cortical blindness). 0 4. Facial Palsy: Ask - or use pantomime to encourage - the patient to show teeth or raise eyebrows and close eyes. Score symmetry of grimace in response to noxious stimuli in the poorly responsive or non-comprehending patient. If facial trauma/bandages, orotracheal tube, tape or other physical barriers obscure the face, these should be removed to the extent possible. 0 = Normal symmetrical movements. 1 = Minor paralysis (flattened nasolabial fold, asymmetry on smiling). 2 = Partial paralysis (total or near-total paralysis of lower face). 3 = Complete paralysis of one or both sides (absence of facial movement in the upper and lower face). 0 5. Motor Arm: The limb is placed in the appropriate position: extend the arms (palms down) 90 degrees (if sitting) or 45 degrees (if supine). Drift is scored if the arm falls before 10 seconds. The aphasic patient is encouraged using urgency in the voice and pantomime, but not noxious stimulation. Each limb is tested in turn, beginning with the non-paretic arm. Only in the case of amputation or joint fusion at the shoulder, the examiner should record the score as untestable (UN), and clearly write the explanation for this choice. 0 = No drift; limb holds 90 (or 45) degrees for full 10 seconds. 1 = Drift; limb holds 90 (or 45) degrees, but drifts down before full 10 seconds ; does not hit bed or other support. 2 = Some effort against gravity; limb cannot get to or maintain (if cued) 90 ( or 45) degrees, drifts down to bed, but has some effort against gravity. 3 = No effort against gravity; limb falls. 4 = No movement. UN = Amputation or joint fusion, explain: 5a. Left Arm 0 5b. Right Arm 1 6. Motor Leg: The limb is placed in the appropriate position: hold the leg at 30 degrees (always tested supine). Drift is scored if the leg falls before 5 seconds. The aphasic patient is encouraged using urgency in the voice and pantomime, but not noxious stimulation. Each limb is tested in turn, beginning with the non-paretic leg. Only in the case of amputation or joint fusion at the hip, the examiner should record the score as untestable (UN), and clearly write the explanation for this choice. 0 = No drift; leg holds 30-degree position for full 5 seconds. 1 = Drift; leg falls by the end of the 5-second period but does not hit bed. 2 = Some effort against gravity; leg falls to bed by 5 seconds, but has some effort against gravity. 3 = No effort against gravity; leg falls to bed immediately. 4 = No movement. UN = Amputation or joint fusion, explain: 6a. Left Leg 0 6b. Right Leg 1 Interval: [ ] Baseline [ ] 2 hours post treatment [ ] 24 hours post onset of symptoms 20 minutes [ ] 7-10 days [ ] 3 months [ ] Other ( ) 7. Limb Ataxia: This item is aimed at finding evidence of a unilateral cerebellar lesion. Test with eyes open. In case of visual defect, ensure testing is done in intact visual field. The [id number]-[id number] and heel-salgado tests are performed on both sides, and ataxia is scored only if present out of proportion to weakness. Ataxia is absent in the patient who cannot understand or is paralyzed. Only in the case of amputation or joint fusion, the examiner should record the score as untestable (UN), and clearly write the explanation for this choice. In case of blindness, test by having the patient touch nose from extended arm position. 0 = Absent. 1 = Present in one limb. 2 = Present in two limbs. UN = Amputation or joint fusion, explain: 2 8. Sensory: Sensation or grimace to pinprick when tested, or withdrawal from noxious stimulus in the obtunded or aphasic patient. Only sensory loss attributed to stroke is scored as abnormal and the examiner should test as many body areas (arms [not hands], legs, trunk, face) as needed to accurately check for hemisensory loss. A score of 2, "severe or total sensory loss," should only be given when a severe or total loss of sensation can be clearly demonstrated. Stuporous and aphasic patients will, therefore, probably score 1 or 0. The patient with brainstem stroke who has bilateral loss of sensation is scored 2. If the patient does not respond and is quadriplegic, score 2. Patients in a coma (item 1a=3) are automatically given a 2 on this item. 0 = Normal; no sensory loss. 1 = Ascq-zf-vdczhbqd sensory loss; patient feels pinprick is less sharp or is dull on the affected side; or there is a loss of superficial pain with pinprick , but patient is aware of being touched. 2 = Severe to total sensory loss; patient is not aware of being touched in the face, arm, and leg. 1 9. Best Language: A great deal of information about comprehension will be obtained during the preceding sections of the examination. For this scale item, the patient is asked to describe what is happening in the attached picture, to name the items on the attached naming sheet and to read from the attached list of sentences. Comprehension is judged from responses here, as well as to all of the commands in the preceding general neurological exam. If visual loss interferes with the tests, ask the patient to identify objects placed in the hand, repeat, and produce speech. The intubated patient should be asked to write. The patient in a coma (item 1a=3) will automatically score 3 on this item. The examiner must choose a score for the patient with stupor or limited cooperation, but a score of 3 should be used only if the patient is mute and follows no one-step commands. 0 = No aphasia; normal. 1 = Sosj-ll-jkzdyeez aphasia; some obvious loss of fluency or facility of comprehension, without significant limitation on ideas expressed or form of expression. Reduction of speech and/or comprehension, however, makes conversation about provided materials difficult or impossible. For example, in conversation about provided materials, examiner can identify picture or naming card content from patient's response. 2 = Severe aphasia; all communication is through fragmentary expression; great need for inference, questioning, and guessing by the listener. Range of information that can be exchanged is limited; listener carries burden of communication. Examiner cannot identify materials provided from patient response. 3 = Mute, global aphasia; no usable speech or auditory comprehension. 0 10. Dysarthria: If patient is thought to be normal, an adequate sample of speech must be obtained by asking patient to read or repeat words from the attached list. If the patient has severe aphasia, the clarity of articulation of spontaneous speech can be rated. Only if the patient is intubated or has other physical barriers to producing speech, the examiner should record the score as untestable (UN), and clearly write an explanation for this choice. Do not tell the patient why he or she is being tested. 0 = Normal. 1 = Xvol-so-gxggumiq dysarthria; patient slurs at least some words and, at worst , can be understood with some difficulty. 2 = Severe dysarthria; patient's speech is so slurred as to be unintelligible in the absence of or out of proportion to any dysphasia, or is mute/anarthric. UN = Intubated or other physical barrier, explain: 1 Interval: [ ] Baseline [ ] 2 hours post treatment [ ] 24 hours post onset of symptoms 20 minutes [ ] 7-10 days [ ] 3 months [ ] Other ( ) 11. Extinction and Inattention (formerly Neglect): Sufficient information to identify neglect may be obtained during the prior testing. If the patient has a severe visual loss preventing visual double simultaneous stimulation, and the cutaneous stimuli are normal, the score is normal. If the patient has aphasia but does appear to attend to both sides, the score is normal. The presence of visual spatial neglect or anosagnosia may also be taken as evidence of abnormality. Since the abnormality is scored only if present, the item is never untestable. 0 = No abnormality. 1 = Visual, tactile, auditory, spatial, or personal inattention or extinction to bilateral simultaneous stimulation in one of the sensory modalities. 2 = Profound bernard-inattention or extinction to more than one modality; does not recognize own hand or orients to only one side of space. 0 total score: 6 Departure Departure Impression: Primary Impression: CVA (cerebral vascular accident) Disposition: 09 ADMITTED INPATIENT Admitting Physician: Jonas Paige Condition: STABLE Referrals: NALLELY SALDANA MD (PCP) YESI JULIAN DO Jul 30, 2018 08:54
[2018-07-30 09:05] LABS: HEMATOCRIT 35.2 % (36.0-47.0); HEMOGLOBIN 12.1 g/dL (12.0-15.5); RED BLOOD COUNT 3.82 x10^6/uL (3.50-5.40); RED CELL DISTRIBUTION WIDTH 14.7 % (11.5-14.5); WHITE BLOOD COUNT 5.2 x10^3/uL (4.0-11.0)
[2018-07-30 09:18] LABS: BILIRUBIN,URINE NEGATIVE (NEG); CLARITY,URINE CLEAR; COLOR,URINE YELLOW; NITRITE,URINE NEGATIVE (NEG); PROTEIN,URINE 100 mg/dL (NEG-TRACE); UROBILINOGEN,URINE 0.2 mg/dL (0.2 mg/dL)
[2018-07-30 09:23] LABS: PROTHROMBIN TIME PATIENT 12.1 SEC (11.7-14.0)
[2018-07-30 09:24] LABS: CALCIUM 8.8 mg/dL (8.5-10.1); CREATININE 1.2 mg/dL (0.6-1.0); GFR 42.7; POTASSIUM 4.7 mmol/L (3.5-5.1)
[2018-07-30 09:30] LABS: ALBUMIN 3.3 g/dL (3.4-5.0); DIRECT BILIRUBIN 0.1 mg/dL (0.0-0.2); TOTAL BILIRUBIN 0.2 mg/dL (0.2-1.0); TOTAL PROTEIN 7.2 g/dL (6.4-8.2)
[2018-07-30 09:39] LABS: SQUAMOUS EPITHELIAL CELL,UR MOD /LPF
[2018-07-30 09:41] LABS: BACTERIA,URINE 0 /HPF (0-FEW); RBC,URINE 0 /HPF (0-2)
[2018-07-30] MEDS ORDERED: ONDANSETRON PF 4 MG/2 ML VIAL. IV PRN (09:45)
[2018-07-30] MEDS ORDERED: IPRATRPIUM/ALBUTEROL 0.5/2.5MG 3 ML NEBU. ONE (10:06)
[2018-07-30] MEDS ORDERED: IPRATRPIUM/ALBUTEROL 0.5/2.5MG 3 ML NEBU. NEB ONE (10:15)
[2018-07-30 11:00] VITALS: BP 154/76
[2018-07-30] MEDS: IPRATRPIUM/ALBUTEROL 0.5/2.5MG 3 ML NEBU. NEB SCH ×3 (12:21→20:55)
[2018-07-30] MEDS ORDERED: HEPARIN for IV BOLUS 10,000 UNIT/10 ML VIAL. IV ONE (13:45)
[2018-07-30] MEDS ORDERED: HYDROcodone/APAP 5/325MG 1 TAB TABLET PO PRN (13:45)
[2018-07-30] MEDS ORDERED: fentaNYL PF VIAL 100 MCG/2 ML VIAL IV PRN (13:45)
[2018-07-30] MEDS: HEPARIN 25,000UTS/500ML PREMIX 500 ML IV PRN (14:54)
--- NOTE | 2018-07-30 14:57 | PDOC1 ---
History and Physical Date of Admission Date of Admission DATE: 07/30/18 TIME: 14:44 Identification/Chief Complaint Chief Complaint Right-sided weakness History of Present Illness History of Present Illness This patient is a very pleasant 83-year-old lady with a known history of atrial fibrillation that is chronic and coronary artery disease, status post CABG, peripheral vascular disease status post femoral bypass. She is a diabetic and is active but has has some falls in the past. After insertion of her defibrillator and pacemaker things were discussed and she was anticoagulated with aspirin and Plavix and not warfarin. She has been doing well for some time and denies having any recent problems until last night. Patient states that somewhere around midnight she awoke and was weak on the whole right side of the body she didn't do anything and waited for the family to come in the morning and then this morning she was brought to the emergency room. On arrival to the ER the patient was able to move the right side very weakly and could not hold the leg or the arm up by herself but her speech was doing better. A CT of the head was done and we found that there was no acute bleed and what appears to be small vessel ischemic disease. At the time that I saw the patient she denies having any loss of consciousness, she denies having any chest pains or palpitations. Her pacemaker appears to be functioning normally. She is pacing in a VVIR mode. No dyspnea at rest. Past Medical History Cardiovascular: AFIB, CAD, CHF, HTN, Hyperlipidemia, Aortic stenosis, Other Pulmonary: Bronchitis, Other CENTRAL NERVOUS SYSTEM: Other GI: Other Heme/Onc: Cancer Hepatobiliary: No pertinent hx Psych: No pertinent hx, Anxiety Musculoskeletal: Osteoarthritis Rheumatologic: No pertinent hx Infectious disease: No pertinent hx Renal/: No pertinent hx Endocrine: Diabetes Past Surgical History Past Surgical History: Appendectomy, Cholecystectomy, Hernia Repair, Hysterectomy, Colon Resection, Other Social History ALCOHOL: none Drugs: None Current Problem List Problem List Problems Medical Problems: (1) CVA (cerebral vascular accident) Status: Acute Current Medications Current Medications Current Medications Ondansetron HCl (Zofran) 4 mg PRN Q8HRS PRN IV NAUSEA/VOMITING; Start 07/30/18 at 09:45; Stop 07/31/18 at 09:44 Albuterol/ Ipratropium (Duoneb) 3 ml RTQID NEB Last administered on 07/30/18at 12 :21; Start 07/30/18 at 12:00; Stop 07/31/18 at 11:59 Albuterol/ Ipratropium (Duoneb) 3 ml STK-MED ONCE .ROUTE ; Start 07/30/18 at 10: 06; Stop 07/30/18 at 10:07; Status DC Albuterol/ Ipratropium (Duoneb) 3 ml 1X ONCE NEB Last administered on at 10:14; Start 07/30/18 at 10:15; Stop 07/30/18 at 10:16; Status DC Heparin Sodium/ Dextrose 500 ml @ 0 mls/hr CONT PRN IV SEE I/O RECORD; Start at 13:45 Heparin Sodium (Porcine) (Heparin Sodium) 5,000 unit 1X ONCE IV ; Start at 13:45; Stop 07/30/18 at 14:13; Status DC Alprazolam (Xanax) 0.25 mg PRN Q6HRS PRN PO ANXIETY / AGITATION; Start 07/30/18 at 13:45 Fentanyl Citrate (Fentanyl 2ml Vial) 25 mcg PRN Q3HRS PRN IV PAIN Last administered on 07/30/18at 14:09; Start 07/30/18 at 13:45 Acetaminophen/ Hydrocodone Bitart (Lortab 5/325) 1 tab PRN Q6HRS PRN PO PAIN; Start 07/30/18 at 13:45 Info (Anti-Coagulation Monitoring By Pharmacy) 1 each PRN DAILY PRN [facility] SEE COMMENTS; Start 07/30/18 at 14:15 Clopidogrel Bisulfate (Plavix) 75 mg DAILY PO ; Start 07/31/18 at 09:00; Status UNV Glipizide (Glucotrol) 5 mg BID PO ; Start 07/30/18 at 21:00; Status UNV Pantoprazole Sodium (Protonix) 40 mg HS PO ; Start 07/30/18 at 21:00; Status UNV Non-Formulary Medication (Carvedilol ) 0.5 tab BID PO ; Start 07/30/18 at 21:00; Status UNV Active Scripts Active Reported Glipizide 5 Mg Tablet 1 Tab PO BID Carvedilol 25 Mg Tablet 0.5 Tab PO BID Plavix (Clopidogrel Bisulfate) 75 Mg Tablet 1 Tab PO DAILY Aspir 81 (Aspirin) 81 Mg Tablet. 1 Tab PO QEVNG Proair Hfa Inhaler (Albuterol Sulfate) 8.5 Gm Hfa.aer.ad 2 Puff INH Q4-6HRS PRN Pantoprazole Sodium 40 Mg Tablet.dr 40 Mg PO HS Amlodipine Besylate 10 Mg Tablet 10 Mg PO HS Allergies Allergies: Coded Allergies: No Known Drug Allergies (Unverified , 09/11/15) Physical Exam General: Alert, Oriented X3, Cooperative HEENT: PERRLA, Other (slight pulling on the left side of the face) Lungs: Clear to auscultation Heart: other (patient is 100% paced and his regular at this point on ventricular pacing. Scattered S1 and S2 and a 1/6 systolic murmur.) Abdomen: Normal bowel sounds, Soft Rectal Exam: deferred Extremities: No edema Neuro: Other (patient is alert and oriented. Right arm and right leg are very weak she can move the fingers and she can move the foot but cannot lift either extremity very mild squeezing of the fingers on the right side) Vitals Vitals Vital Signs Date Time Temp Pulse Resp B/P (MAP) Pulse Ox O2 Delivery O2 Flow Rate FiO2 07/30/18 14:09 18 95 Room Air 07/30/18 11:00 98.7 81 154/76 (102) 98.7 Labs Labs Laboratory Tests Test 07/30/18 08:20 07/30/18 08:45 Glucose (Fingerstick) 89 mg/dL (70-99) White Blood Count 5.2 x10^3/uL (4.0-11.0) Red Blood Count 3.82 x10^6/uL (3.50-5.40) Hemoglobin 12.1 g/dL (12.0-15.5) Hematocrit 35.2 % (36.0-47.0) Mean Corpuscular Volume 92 fL (79-100) Mean Corpuscular Hemoglobin 32 pg (25-35) Mean Corpuscular Hemoglobin Concent 34 g/dL (31-37) Red Cell Distribution Width 14.7 % (11.5-14.5) Platelet Count 243 x10^3/uL (140-400) Prothrombin Time 12.1 SEC (11.7-14.0) Prothromb Time International Ratio 0.9 (0.8-1.1) Activated Partial Thromboplast Time 29 SEC (24-38) Urine Collection Type Unknown Urine Color Yellow Urine Clarity Clear Urine pH 6.0 Urine Specific [place] 1.010 Urine Protein 100 mg/dL (NEG-TRACE) Urine Glucose (UA) Negative mg/dL (NEG) Urine Ketones (Stick) Negative mg/dL (NEG) Urine Blood Negative (NEG) Urine Nitrite Negative (NEG) Urine Bilirubin Negative (NEG) Urine Urobilinogen Dipstick 0.2 mg/dL (0.2 mg/dL) Urine Leukocyte Esterase Small (NEG) Urine RBC 0 /HPF (0-2) Urine WBC 1-4 /HPF (0-4) Urine Squamous Epithelial Cells Mod /LPF Urine Renal Epithelial Cells Occ /LPF Urine Bacteria 0 /HPF (0-FEW) Sodium Level 138 mmol/L (136-145) Potassium Level 4.7 mmol/L (3.5-5.1) Chloride Level 106 mmol/L (98-107) Carbon Dioxide Level 20 mmol/L (21-32) Anion Gap 12 (6-14) Blood Urea Nitrogen 15 mg/dL (7-20) Creatinine 1.2 mg/dL (0.6-1.0) Estimated GFR (Cockcroft-Gault) 42.7 Glucose Level 87 mg/dL (70-99) Calcium Level 8.8 mg/dL (8.5-10.1) Total Bilirubin 0.2 mg/dL (0.2-1.0) Direct Bilirubin 0.1 mg/dL (0.0-0.2) Aspartate Amino Transf (AST/SGOT) 15 U/L (15-37) Alanine Aminotransferase (ALT/SGPT) 12 U/L (14-59) Alkaline Phosphatase 81 U/L (46-116) Total Protein 7.2 g/dL (6.4-8.2) Albumin 3.3 g/dL (3.4-5.0) Laboratory Tests Test 07/30/18 08:20 07/30/18 08:45 Glucose (Fingerstick) 89 mg/dL (70-99) White Blood Count 5.2 x10^3/uL (4.0-11.0) Red Blood Count 3.82 x10^6/uL (3.50-5.40) Hemoglobin 12.1 g/dL (12.0-15.5) Hematocrit 35.2 % (36.0-47.0) Mean Corpuscular Volume 92 fL (79-100) Mean Corpuscular Hemoglobin 32 pg (25-35) Mean Corpuscular Hemoglobin Concent 34 g/dL (31-37) Red Cell Distribution Width 14.7 % (11.5-14.5) Platelet Count 243 x10^3/uL (140-400) Prothrombin Time 12.1 SEC (11.7-14.0) Prothromb Time International Ratio 0.9 (0.8-1.1) Activated Partial Thromboplast Time 29 SEC (24-38) Urine Collection Type Unknown Urine Color Yellow Urine Clarity Clear Urine pH 6.0 Urine Specific [place] 1.010 Urine Protein 100 mg/dL (NEG-TRACE) Urine Glucose (UA) Negative mg/dL (NEG) Urine Ketones (Stick) Negative mg/dL (NEG) Urine Blood Negative (NEG) Urine Nitrite Negative (NEG) Urine Bilirubin Negative (NEG) Urine Urobilinogen Dipstick 0.2 mg/dL (0.2 mg/dL) Urine Leukocyte Esterase Small (NEG) Urine RBC 0 /HPF (0-2) Urine WBC 1-4 /HPF (0-4) Urine Squamous Epithelial Cells Mod /LPF Urine Renal Epithelial Cells Occ /LPF Urine Bacteria 0 /HPF (0-FEW) Sodium Level 138 mmol/L (136-145) Potassium Level 4.7 mmol/L (3.5-5.1) Chloride Level 106 mmol/L (98-107) Carbon Dioxide Level 20 mmol/L (21-32) Anion Gap 12 (6-14) Blood Urea Nitrogen 15 mg/dL (7-20) Creatinine 1.2 mg/dL (0.6-1.0) Estimated GFR (Cockcroft-Gault) 42.7 Glucose Level 87 mg/dL (70-99) Calcium Level 8.8 mg/dL (8.5-10.1) Total Bilirubin 0.2 mg/dL (0.2-1.0) Direct Bilirubin 0.1 mg/dL (0.0-0.2) Aspartate Amino Transf (AST/SGOT) 15 U/L (15-37) Alanine Aminotransferase (ALT/SGPT) 12 U/L (14-59) Alkaline Phosphatase 81 U/L (46-116) Total Protein 7.2 g/dL (6.4-8.2) Albumin 3.3 g/dL (3.4-5.0) VTE Prophylaxis Ordered VTE Prophylaxis Devices: No VTE Pharmacological Prophylaxi: Yes Assessment/Plan Assessment/Plan She with a known history of chronic atrial fibrillation that comes in with and what appears to be an evolving stroke 8 or more hours old. Will consult neurology and get a carotid Doppler, and echocardiogram, and start the patient on heparin. Further orders as per neurology. SHANITA ÁLVAREZ MD Jul 30, 2018 14:57
[2018-07-30 15:00] VITALS: BP 118/71
--- NOTE | 2018-07-30 15:00 | PDOC2 ---
CONSULT Date of Consult Date of Consult DATE: 07/30/18 TIME: 14:58 Reason for Consult Reason for Consult: Woke up with right-sided weakness History of Present Illness Reason for Visit: This patient is a 83-year-old woman who presented to emergency room with complaint of right-sided weakness. Information obtained from multiple medical members at bedside. Patient had last time seen normal was yesterday evening. Patient was having some right-sided weakness and when she woke up around midnight she was having more weakness on the right side she was having difficulty walking and trouble using the bathroom. Patient was unsteady. Patient went back to sleep. When patient woke up this morning again she was having more weakness and she was brought to emergency room for further evaluation. Past Medical History Cardiovascular: AFIB, CAD, CHF, HTN, Hyperlipidemia, Aortic stenosis, Other Pulmonary: Bronchitis, Other CENTRAL NERVOUS SYSTEM: Other GI: Other Heme/Onc: Cancer Hepatobiliary: No pertinent hx Psych: No pertinent hx, Anxiety Musculoskeletal: Osteoarthritis Rheumatologic: No pertinent hx Infectious disease: No pertinent hx Renal/: No pertinent hx Endocrine: Diabetes Past Surgical History Past Surgical History: Appendectomy, Cholecystectomy, Hernia Repair, Hysterectomy, Colon Resection, Other Social History ALCOHOL: none Drugs: None Lives: with Family Domestic Violence: Neg Current Problem List Problem List Problems Medical Problems: (1) CVA (cerebral vascular accident) Status: Acute Current Medications Current Medications Current Medications Ondansetron HCl (Zofran) 4 mg PRN Q8HRS PRN IV NAUSEA/VOMITING; Start 07/30/18 at 09:45; Stop 07/31/18 at 09:44 Albuterol/ Ipratropium (Duoneb) 3 ml RTQID NEB Last administered on 07/30/18at 12 :21; Start 07/30/18 at 12:00; Stop 07/31/18 at 11:59 Albuterol/ Ipratropium (Duoneb) 3 ml STK-MED ONCE .ROUTE ; Start 07/30/18 at 10: 06; Stop 07/30/18 at 10:07; Status DC Albuterol/ Ipratropium (Duoneb) 3 ml 1X ONCE NEB Last administered on at 10:14; Start 07/30/18 at 10:15; Stop 07/30/18 at 10:16; Status DC Heparin Sodium/ Dextrose 500 ml @ 0 mls/hr CONT PRN IV SEE I/O RECORD; Start at 13:45 Heparin Sodium (Porcine) (Heparin Sodium) 5,000 unit 1X ONCE IV ; Start at 13:45; Stop 07/30/18 at 14:13; Status DC Alprazolam (Xanax) 0.25 mg PRN Q6HRS PRN PO ANXIETY / AGITATION; Start 07/30/18 at 13:45 Fentanyl Citrate (Fentanyl 2ml Vial) 25 mcg PRN Q3HRS PRN IV PAIN Last administered on 07/30/18at 14:09; Start 07/30/18 at 13:45 Acetaminophen/ Hydrocodone Bitart (Lortab 5/325) 1 tab PRN Q6HRS PRN PO PAIN; Start 07/30/18 at 13:45 Info (Anti-Coagulation Monitoring By Pharmacy) 1 each PRN DAILY PRN [facility] SEE COMMENTS; Start 07/30/18 at 14:15 Clopidogrel Bisulfate (Plavix) 75 mg DAILY PO ; Start 07/31/18 at 09:00 Glipizide (Glucotrol) 5 mg BID PO ; Start 07/30/18 at 21:00; Status UNV Pantoprazole Sodium (Protonix) 40 mg HS PO ; Start 07/30/18 at 21:00; Status UNV Non-Formulary Medication (Carvedilol ) 0.5 tab BID PO ; Start 07/30/18 at 21:00; Status UNV Active Scripts Active Reported Glipizide 5 Mg Tablet 1 Tab PO BID Carvedilol 25 Mg Tablet 0.5 Tab PO BID Plavix (Clopidogrel Bisulfate) 75 Mg Tablet 1 Tab PO DAILY Aspir 81 (Aspirin) 81 Mg Tablet. 1 Tab PO QEVNG Proair Hfa Inhaler (Albuterol Sulfate) 8.5 Gm Hfa.aer.ad 2 Puff INH Q4-6HRS PRN Pantoprazole Sodium 40 Mg Tablet.dr 40 Mg PO HS Amlodipine Besylate 10 Mg Tablet 10 Mg PO HS Allergies Allergies: Coded Allergies: No Known Drug Allergies (Unverified , 09/11/15) Physical Exam Physical Exam REVIEW OF SYSTEMS: . Otherwise, not [id number] review of systems. PHYSICAL EXAMINATION: General appearance is no acute distress. HEENT: Normocephalic and nontraumatic. . Neck is supple. No lymphadenopathy. . Cardiovascular: S1, S2 Pulmonary: Clear to auscultation bilaterally. Abdomen: Bowel sounds are positive. Abdomen is soft, nontender, and nondistended. NEUROLOGICAL EXAMINATION: Alert Oriented to time, place and person. PERRL. EOMI. CN: no focal findings. Right facial asymmetry, dysarthria Muscle tone: within normal. Muscle strength: right Sided weakness noted compared to left side. DTR: 1-2 Plantar reflex: Flexor response bilaterally Gait: not examined in bed. Sensory exam: no abnormal findings. No obvious cerebellar signs elicited on left side right side limited by weakness. Vitals VITALS Vital Signs Date Time Temp Pulse Resp B/P (MAP) Pulse Ox O2 Delivery O2 Flow Rate FiO2 07/30/18 14:09 18 95 Room Air 07/30/18 11:00 98.7 81 154/76 (102) 98.7 Labs Labs Laboratory Tests Test 07/30/18 08:20 07/30/18 08:45 Glucose (Fingerstick) 89 mg/dL (70-99) White Blood Count 5.2 x10^3/uL (4.0-11.0) Red Blood Count 3.82 x10^6/uL (3.50-5.40) Hemoglobin 12.1 g/dL (12.0-15.5) Hematocrit 35.2 % (36.0-47.0) Mean Corpuscular Volume 92 fL (79-100) Mean Corpuscular Hemoglobin 32 pg (25-35) Mean Corpuscular Hemoglobin Concent 34 g/dL (31-37) Red Cell Distribution Width 14.7 % (11.5-14.5) Platelet Count 243 x10^3/uL (140-400) Prothrombin Time 12.1 SEC (11.7-14.0) Prothromb Time International Ratio 0.9 (0.8-1.1) Activated Partial Thromboplast Time 29 SEC (24-38) Urine Collection Type Unknown Urine Color Yellow Urine Clarity Clear Urine pH 6.0 Urine Specific [place] 1.010 Urine Protein 100 mg/dL (NEG-TRACE) Urine Glucose (UA) Negative mg/dL (NEG) Urine Ketones (Stick) Negative mg/dL (NEG) Urine Blood Negative (NEG) Urine Nitrite Negative (NEG) Urine Bilirubin Negative (NEG) Urine Urobilinogen Dipstick 0.2 mg/dL (0.2 mg/dL) Urine Leukocyte Esterase Small (NEG) Urine RBC 0 /HPF (0-2) Urine WBC 1-4 /HPF (0-4) Urine Squamous Epithelial Cells Mod /LPF Urine Renal Epithelial Cells Occ /LPF Urine Bacteria 0 /HPF (0-FEW) Sodium Level 138 mmol/L (136-145) Potassium Level 4.7 mmol/L (3.5-5.1) Chloride Level 106 mmol/L (98-107) Carbon Dioxide Level 20 mmol/L (21-32) Anion Gap 12 (6-14) Blood Urea Nitrogen 15 mg/dL (7-20) Creatinine 1.2 mg/dL (0.6-1.0) Estimated GFR (Cockcroft-Gault) 42.7 Glucose Level 87 mg/dL (70-99) Calcium Level 8.8 mg/dL (8.5-10.1) Total Bilirubin 0.2 mg/dL (0.2-1.0) Direct Bilirubin 0.1 mg/dL (0.0-0.2) Aspartate Amino Transf (AST/SGOT) 15 U/L (15-37) Alanine Aminotransferase (ALT/SGPT) 12 U/L (14-59) Alkaline Phosphatase 81 U/L (46-116) Total Protein 7.2 g/dL (6.4-8.2) Albumin 3.3 g/dL (3.4-5.0) Laboratory Tests Test 07/30/18 08:20 07/30/18 08:45 Glucose (Fingerstick) 89 mg/dL (70-99) White Blood Count 5.2 x10^3/uL (4.0-11.0) Red Blood Count 3.82 x10^6/uL (3.50-5.40) Hemoglobin 12.1 g/dL (12.0-15.5) Hematocrit 35.2 % (36.0-47.0) Mean Corpuscular Volume 92 fL (79-100) Mean Corpuscular Hemoglobin 32 pg (25-35) Mean Corpuscular Hemoglobin Concent 34 g/dL (31-37) Red Cell Distribution Width 14.7 % (11.5-14.5) Platelet Count 243 x10^3/uL (140-400) Prothrombin Time 12.1 SEC (11.7-14.0) Prothromb Time International Ratio 0.9 (0.8-1.1) Activated Partial Thromboplast Time 29 SEC (24-38) Urine Collection Type Unknown Urine Color Yellow Urine Clarity Clear Urine pH 6.0 Urine Specific [place] 1.010 Urine Protein 100 mg/dL (NEG-TRACE) Urine Glucose (UA) Negative mg/dL (NEG) Urine Ketones (Stick) Negative mg/dL (NEG) Urine Blood Negative (NEG) Urine Nitrite Negative (NEG) Urine Bilirubin Negative (NEG) Urine Urobilinogen Dipstick 0.2 mg/dL (0.2 mg/dL) Urine Leukocyte Esterase Small (NEG) Urine RBC 0 /HPF (0-2) Urine WBC 1-4 /HPF (0-4) Urine Squamous Epithelial Cells Mod /LPF Urine Renal Epithelial Cells Occ /LPF Urine Bacteria 0 /HPF (0-FEW) Sodium Level 138 mmol/L (136-145) Potassium Level 4.7 mmol/L (3.5-5.1) Chloride Level 106 mmol/L (98-107) Carbon Dioxide Level 20 mmol/L (21-32) Anion Gap 12 (6-14) Blood Urea Nitrogen 15 mg/dL (7-20) Creatinine 1.2 mg/dL (0.6-1.0) Estimated GFR (Cockcroft-Gault) 42.7 Glucose Level 87 mg/dL (70-99) Calcium Level 8.8 mg/dL (8.5-10.1) Total Bilirubin 0.2 mg/dL (0.2-1.0) Direct Bilirubin 0.1 mg/dL (0.0-0.2) Aspartate Amino Transf (AST/SGOT) 15 U/L (15-37) Alanine Aminotransferase (ALT/SGPT) 12 U/L (14-59) Alkaline Phosphatase 81 U/L (46-116) Total Protein 7.2 g/dL (6.4-8.2) Albumin 3.3 g/dL (3.4-5.0) Assessment/Plan Assessment/Plan This patient is a 83-year-old woman who presented to emergency room with complaint of right-sided weakness. Information obtained from multiple medical members at bedside. Patient had last time seen normal was yesterday evening. Patient was having some right-sided weakness and when she woke up around midnight she was having more weakness on the right side she was having difficulty walking and trouble using the bathroom. Patient was unsteady. Patient went back to sleep. When patient woke up this morning again she was having more weakness and she was brought to emergency room for further evaluation. 83-year-old woman who presented to emergency room with right-sided weakness symptoms started yesterday evening patient had progression of symptoms through the night she presented in the morning to emergency room with difficulty of gait and balance problems with worsening of right-sided weakness patient had extensive cardiac medical history patient is status post pacemaker she had a CT scan done on the brain which did not show any evidence of acute intracranial hemorrhage. There was areas of hypoattenuation noted in periventricular area changes noted for chronic small vessel ischemic disease. Patient was outside the window for IV TPA. Patient has a history of A. fib patient is started on heparin drip. Recommendations appreciated. MRI brain cannot be done due to current medical condition. Will get stroke workup. We will check K Doppler, 2-D echo. We will also repeat CT scan tomorrow morning to evaluate for risk for hemorrhagic conversion of stroke. PTOT speech evaluation. Plan discussed with multiple medical members at bedside, cardiology team continue medical management. PANCHITO TALAVERA MD Jul 30, 2018 15:00
[2018-07-30] MEDS: ASPIRIN ENTERIC COATED 81 MG TABLET.DR. PO SCH ×2 (15:30→16:36)
[2018-07-30] MEDS: ALPRAZolam 0.25 MG TABLET PO PRN (16:36)
[2018-07-30] MEDS: glipiZIDE 5 MG TABLET PO SCH (18:27)
[2018-07-30] MEDS: CARVEDILOL 12.5 MG TABLET. PO SCH (18:27)
--- NOTE | 2018-07-30 19:19 | RAD ---
Duplex ultrasound carotid arteries HISTORY: CVA Duplex ultrasound was used to evaluate the carotid arteries. Real-time imaging, color flow imaging and Doppler with velocity determinations were utilized for evaluation. There is calcified plaque at the distal common carotid artery and carotid bifurcation on the right side. Peak velocity in the right internal carotid artery is 57 cm/s with a systolic velocity index of 2.3 due to a low velocity in the common carotid artery. End diastolic velocity in the right internal carotid artery is 16. There is antegrade flow in the right vertebral. On the left side there is calcified plaque at the carotid bifurcation. Peak velocity in the left internal carotid artery is 63 cm/s with a systolic velocity index of 1.7. End diastolic velocity in the left internal carotid artery is 20 cm/s. There is antegrade flow in the left vertebral. IMPRESSION: 1. Calcified plaque bilaterally with less than 50 percent stenosis. PQRS Compliance Statement - Stenosis calculations for carotid ultrasound studies are derived from validated velocity criteria which are known to correlate with the NASCET methodology. Electronically signed by: Justo Guadalupe MD (07/30/2018 7:15 PM) [id number]
[2018-07-30 19:20] VITALS: BP 144/69
--- NOTE | 2018-07-30 20:41 | RAD ---
EXAM: CT Head without IV contrast CLINICAL HISTORY: LEFT LEG NUMBNESS, PRIOR HEAD SENT FROM A.M. COMPARISON: None. TECHNIQUE: Routine CT of the head without contrast. Soft tissues and bone windows were reviewed. PQRS compliance statement - One or more of the following individualized dose reduction techniques were utilized for this study: 1. Automated exposure control 2. Adjustment of the mA and/or kV according to patient size 3. Use of iterative reconstruction technique FINDINGS: There is no evidence of hemorrhage, mass or extra-axial fluid collection. Thompson-white differentiation is maintained with no evidence of edema. There are non-specific foci of hypodensity in the periventricular and subcortical white matter of the cerebral hemispheres. There is no mass effect or shift of the intracranial structures. The ventricles and cerebral sulci are prominent for the patients stated age consistent with generalized cerebral volume loss. The cerebellum and brainstem are unremarkable. The calvarium demonstrates no evidence of fracture or focal lesion. There is normal aeration of the visualized paranasal sinuses and mastoid air cells. The visualized portions of the orbits are normal. Atherosclerotic calcifications of the intracranial internal carotid and vertebral arteries is seen. IMPRESSION: Essentially stable head CT without evidence of acute intracranial abnormality. EXAM: Ct Cervical Spine Without Iv Contrast CLINICAL HISTORY: LEFT LEG NUMBNESS, PRIOR HEAD SENT FROM A.M. COMPARISON: None available. TECHNIQUE: Helical CT of the cervical spine was performed. Axial, coronal and sagittal reformatted images were also performed. PQRS compliance statement - One or more of the following individualized dose reduction techniques were utilized for this study: 1. Automated exposure control 2. Adjustment of the mA and/or kV according to patient size 3. Use of iterative reconstruction technique FINDINGS: There is moderate C4-5 and C5-6 as well as C6-7 intervertebral disc height loss. There is trace anterolisthesis of C4 on C5 and trace retrolisthesis of C5 on C6. Endplate osteophytes are seen. Vertebral body heights are preserved. No evidence for acute fracture. Multilevel degenerative changes cause multilevel central canal stenosis and neural foraminal narrowing, most prominent at C3-4 and C5-6. 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 IMPRESSION: 1. No evidence of acute fracture or subluxation. 2. Multilevel degenerative changes of the cervical spine. Electronically signed by: Lake Saba MD (07/30/2018 8:38 PM) [facility]
--- NOTE | 2018-07-30 20:43 | RAD ---
EXAM: AP pelvis, frog-leg lateral views both hips DATE: 07/30/2018 12:00 AM INDICATION: hip pain, no injury COMPARISON: No Prior FINDINGS: No evidence of acute fracture or dislocation. Decreased bone mineral density. Lower lumbar spine, pubic symphysis and SI joint degenerative changes are seen. Hip joint spaces are grossly preserved with mild proliferative change. Protrusio deformity bilateral hips. Atherosclerotic vascular calcifications are seen. IMPRESSION: 1. Within the constraints of osteopenia, no evidence of acute fracture or dislocation. 2. Degenerative changes of the hips, pubic symphysis, SI joints and lower lumbar spine 3. Atherosclerotic vascular calcifications are seen. Electronically signed by: Lake Saba MD (07/30/2018 8:39 PM) [facility]
[2018-07-30] MEDS ORDERED: diazePAM 5 MG TABLET PO PRN (21:30)
[2018-07-30] MEDS ORDERED: CYCLOBENZAPRINE 10 MG TABLET. PO ONE (21:45)
[2018-07-30] MEDS: PANTOPRAZOLE 40 MG TABLET.DR. PO SCH (23:23)
[2018-07-30] MEDS: amLODIPine BESYLATE 5 MG TABLET PO SCH (23:23)
[2018-07-30] MEDS: ATORVASTATIN CALCIUM 20 MG TABLET PO SCH (23:23)
[2018-07-30 23:51] VITALS: BP 172/88
[2018-07-31 03:50] VITALS: BP 139/70
[2018-07-31 05:14] LABS: CHOLESTEROL/HDL RATIO 5.9
[2018-07-31] MEDS: IPRATRPIUM/ALBUTEROL 0.5/2.5MG 3 ML NEBU. NEB SCH ×2 (06:16→11:33)
[2018-07-31 07:00] VITALS: BP 144/74
[2018-07-31] MEDS: CARVEDILOL 12.5 MG TABLET. PO SCH ×2 (08:16→17:25)
[2018-07-31] MEDS: glipiZIDE 5 MG TABLET PO SCH ×2 (08:16→17:25)
[2018-07-31] MEDS: CLOPIDOGREL BISULFATE 75 MG TABLET PO SCH (08:17)
[2018-07-31] MEDS: ASPIRIN ENTERIC COATED 81 MG TABLET.DR. PO SCH (08:17)
--- NOTE | 2018-07-31 09:49 | EKG ---
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
[2018-07-31 11:00] VITALS: BP 145/79
[2018-07-31] MEDS: ANTI-COAG MONITOR BY PHARMACY. MC PRN (14:54)
[2018-07-31 15:00] VITALS: BP 162/83
[2018-07-31] MEDS: HEPARIN 25,000UTS/500ML PREMIX 500 ML IV PRN (15:12)
--- NOTE | 2018-07-31 15:47 | CARD ---
MR#: [id number] Date of Study: 07/31/2018 Ordering Physician: JONAS ÁLVAREZ, Referring Physician: JONAS ÁLVAREZ Tech: Yocasta Miller RDCS APPROVED REPORT EXAM: Two-dimensional and M-mode echocardiogram with Doppler and color Doppler. Other Information HR: 80bpm Rhythm : Pacemaker INDICATION CVA/TIA Mitral Valve Disease Murmur Surgery/Intervention Pacemaker: CABD DIMENSIONS Left Atrium(2D)5.0 (1.6-4.0cm)IVSd1.6 (0.7-1.1cm) Aortic Root(2D)2.4 (2.0-3.7cm)LVDd3.5 (3.9-5.9cm) LVOT Diameter2.0 (1.8-2.4cm)PWd1.8 (0.7-1.1cm) LVDs2.9 (2.5-4.0cm)FS (%) 16.8 % SV18.7 mlLVEF(%)50.0 (>50%) Aortic Valve AoV Peak Navarro.181.4cm/sAoV VTI31.6cm AO Peak GR.13.2mmHgLVOT Peak Navarro.93.9cm/s LVOT VTI 17.48cmAO Mean GR.6mmHg NAOMI (VMAX)1.86jw4XLS (VTI)1.81cm2 Mitral Valve MV E Jxekkwbs57.8cm/sMV DECEL [id number] MV A Cpilciqf386.5cm/sMV E Mean Gr.105mmHg MV YDK01bfB/A Ratio0.7 MVA (PHT)3.52cm2 TDI E/Lateral E'13.0E/Medial E'15.4 Pulmonary Valve PV Peak Exjxuybl70.3cm/sPV Peak Grad.2mmHg Tricuspid Valve TR P. [id number]/sRAP FORLVRJR7atCj TR Peak Gr.16mmHg LEFT VENTRICLE The left ventricle is normal size. There is moderate concentric left ventricular hypertrophy. Left ve ntricle systolic function is low normal. The Ejection Fraction is 50%. Tissue Doppler imaging reveals abnormal left ventricular diastolic dysfunction. Transmitral Doppler flow pattern is Grade I-abnorma l relaxation pattern. RIGHT VENTRICLE The right ventricle is normal size. There is normal right ventricular wall thickness. There is a pace maker lead in the right ventricle. ATRIA The left atrium is moderately dilated. The right atrium size is normal. The interatrial septum is int act with no evidence for an atrial septal defect or patent foramen ovale as noted on 2-D or Doppler i maging. AORTIC VALVE The aortic valve is normal in structure and function. Doppler and Color Flow revealed no significant aortic regurgitation. There is no significant aortic valvular stenosis. MITRAL VALVE Mitral annular calcification is moderate. There is no mitral valve stenosis. Doppler and Color-flow r evealed moderate mitral regurgitation. TRICUSPID VALVE The tricuspid valve is normal in structure and function. Doppler and Color Flow revealed no tricuspid valve regurgitation noted. The PA pressure was estimated at 19 mmHg. There is no tricuspid valve sultana nosis. PULMONIC VALVE PV not well visualized. Doppler and Color Flow revealed trace pulmonic valvular regurgitation. There is no pulmonic valvular stenosis. GREAT VESSELS The aortic root is normal in size. Normal pulmonary venous flow (Doppler). The IVC is normal in size and collapses >50% with inspiration. PERICARDIAL EFFUSION There is no evidence of significant pericardial effusion. Critical Notification Critical Value: No <Conclusion> Left ventricle systolic function is low normal. The Ejection Fraction is 50%. Tissue Doppler imaging reveals abnormal left ventricular diastolic dysfunction. Transmitral Doppler flow pattern is Grade I-abnormal relaxation pattern. There is moderate concentric left ventricular hypertrophy. The left atrium is moderately dilated. The right atrium size is normal. The aortic valve is normal in structure and function. Doppler and Color-flow revealed moderate mitral regurgitation. Mitral annular calcification is moderate. Doppler and Color Flow revealed no tricuspid valve regurgitation noted. The PA pressure was estimated at 19 mmHg. PV not well visualized. There is no evidence of significant pericardial effusion. Signed by : Jonas Álvarez MD Electronically Approved : 07/31/2018 15:46:31
--- NOTE | 2018-07-31 16:13 | PDOC ---
PROGRESS NOTES Subjective Subjective Patient complain of hip pain. No new complaints. Echocardiogram was done and it shows: Left ventricle systolic function is low normal. The Ejection Fraction is 50%. Tissue Doppler imaging reveals abnormal left ventricular diastolic dysfunction. Transmitral Doppler flow pattern is Grade I-abnormal relaxation pattern. There is moderate concentric left ventricular hypertrophy. The left atrium is moderately dilated. The right atrium size is normal. The aortic valve is normal in structure and function. Doppler and Color-flow revealed moderate mitral regurgitation. Mitral annular calcification is moderate. Doppler and Color Flow revealed no tricuspid valve regurgitation noted. The PA pressure was estimated at 19 mmHg. PV not well visualized. There is no evidence of significant pericardial effusion. Objective Objective Vital Signs Date Time Temp Pulse Resp B/P (MAP) Pulse Ox O2 Delivery O2 Flow Rate FiO2 07/31/18 15:00 97.9 80 17 162/83 (109) 96 Room Air 97.9 07/31/18 08:00 2.0 Intake and Output 07/31/18 07:00 Intake Total 300 ml Output Total 400 ml Balance -100 ml Intake Oral 300 ml Output Urine Total 400 ml # Voids 2 # Bowel Movements 2 Physical Exam Physical Exam No significant changes in cardiac exam. No changes in motor deficit Assessment Assessment Patient post CVA. No significant changes in echocardiogram from the last one. Her left ventricular function remains low normal with a moderate amount of mitral insufficiency. No evidence of thrombus in any of the chambers. I agree with the repeat CT of the head tomorrow. Pacemaker appears to be functioning normally. Comment Review of Relevant I have reviewed the following items milena (where applicable) has been applied. Labs Laboratory Tests Test 07/30/18 08:20 07/30/18 08:45 07/30/18 17:28 07/30/18 22:42 Glucose (Fingerstick) 89 mg/dL (70-99) 119 mg/dL (70-99) 132 mg/dL (70-99) White Blood Count 5.2 x10^3/uL (4.0-11.0) Red Blood Count 3.82 x10^6/uL (3.50-5.40) Hemoglobin 12.1 g/dL (12.0-15.5) Hematocrit 35.2 % (36.0-47.0) Mean Corpuscular Volume 92 fL (79-100) Mean Corpuscular Hemoglobin 32 pg (25-35) Mean Corpuscular Hemoglobin Concent 34 g/dL (31-37) Red Cell Distribution Width 14.7 % (11.5-14.5) Platelet Count 243 x10^3/uL (140-400) Prothrombin Time 12.1 SEC (11.7-14.0) Prothromb Time International Ratio 0.9 (0.8-1.1) Activated Partial Thromboplast Time 29 SEC (24-38) Urine Collection Type Unknown Urine Color Yellow Urine Clarity Clear Urine pH 6.0 Urine Specific [place] 1.010 Urine Protein 100 mg/dL (NEG-TRACE) Urine Glucose (UA) Negative mg/dL (NEG) Urine Ketones (Stick) Negative mg/dL (NEG) Urine Blood Negative (NEG) Urine Nitrite Negative (NEG) Urine Bilirubin Negative (NEG) Urine Urobilinogen Dipstick 0.2 mg/dL (0.2 mg/dL) Urine Leukocyte Esterase Small (NEG) Urine RBC 0 /HPF (0-2) Urine WBC 1-4 /HPF (0-4) Urine Squamous Epithelial Cells Mod /LPF Urine Renal Epithelial Cells Occ /LPF Urine Bacteria 0 /HPF (0-FEW) Sodium Level 138 mmol/L (136-145) Potassium Level 4.7 mmol/L (3.5-5.1) Chloride Level 106 mmol/L (98-107) Carbon Dioxide Level 20 mmol/L (21-32) Anion Gap 12 (6-14) Blood Urea Nitrogen 15 mg/dL (7-20) Creatinine 1.2 mg/dL (0.6-1.0) Estimated GFR (Cockcroft-Gault) 42.7 Glucose Level 87 mg/dL (70-99) Calcium Level 8.8 mg/dL (8.5-10.1) Total Bilirubin 0.2 mg/dL (0.2-1.0) Direct Bilirubin 0.1 mg/dL (0.0-0.2) Aspartate Amino Transf (AST/SGOT) 15 U/L (15-37) Alanine Aminotransferase (ALT/SGPT) 12 U/L (14-59) Alkaline Phosphatase 81 U/L (46-116) Total Protein 7.2 g/dL (6.4-8.2) Albumin 3.3 g/dL (3.4-5.0) Test 07/31/18 04:00 07/31/18 08:13 07/31/18 11:17 Heparin Anti-Xa Act, Unfractionated 0.50 IU/mL (0.30-0.70) Triglycerides Level 277 mg/dL (0-150) Cholesterol Level 189 mg/dL (0-200) LDL Cholesterol, Calculated 102 mg/dL (0-100) VLDL Cholesterol, Calculated 55 mg/dL (0-40) Non-HDL Cholesterol Calculated 157 mg/dL (0-129) HDL Cholesterol 32 mg/dL (40-60) Cholesterol/HDL Ratio 5.9 Glucose (Fingerstick) 95 mg/dL (70-99) 143 mg/dL (70-99) Laboratory Tests Test 07/30/18 17:28 07/30/18 22:42 07/31/18 04:00 07/31/18 08:13 Glucose (Fingerstick) 119 mg/dL (70-99) 132 mg/dL (70-99) 95 mg/dL (70-99) Heparin Anti-Xa Act, Unfractionated 0.50 IU/mL (0.30-0.70) Triglycerides Level 277 mg/dL (0-150) Cholesterol Level 189 mg/dL (0-200) LDL Cholesterol, Calculated 102 mg/dL (0-100) VLDL Cholesterol, Calculated 55 mg/dL (0-40) Non-HDL Cholesterol Calculated 157 mg/dL (0-129) HDL Cholesterol 32 mg/dL (40-60) Cholesterol/HDL Ratio 5.9 Test 07/31/18 11:17 Glucose (Fingerstick) 143 mg/dL (70-99) Medications Current Medications Ondansetron HCl (Zofran) 4 mg PRN Q8HRS PRN IV NAUSEA/VOMITING; Start 07/30/18 at 09:45; Stop 07/31/18 at 09:44; Status DC Albuterol/ Ipratropium (Duoneb) 3 ml RTQID NEB Last administered on 07/31/18at 11 :33; Start 07/30/18 at 12:00; Stop 07/31/18 at 11:59; Status DC Albuterol/ Ipratropium (Duoneb) 3 ml STK-MED ONCE .ROUTE ; Start 07/30/18 at 10: 06; Stop 07/30/18 at 10:07; Status DC Albuterol/ Ipratropium (Duoneb) 3 ml 1X ONCE NEB Last administered on 10:14; Start 07/30/18 at 10:15; Stop 07/30/18 at 10:16; Status DC Heparin Sodium/ Dextrose 500 ml @ 0 mls/hr CONT PRN IV SEE I/O RECORD Last administered on 07/31/18 15:12; Start 07/30/18 at 13:45 Heparin Sodium (Porcine) (Heparin Sodium) 5,000 unit 1X ONCE IV Last administered on 07/30/18 14:50; Start 07/30/18 at 13:45; Stop 07/30/18 at 14:13; Status DC Alprazolam (Xanax) 0.25 mg PRN Q6HRS PRN PO ANXIETY / AGITATION 1ST CHOICE Last administered on 07/30/18 16:36; Start 07/30/18 at 13:45 Fentanyl Citrate (Fentanyl 2ml Vial) 25 mcg PRN Q3HRS PRN IV PAIN Last administered on 07/30/18 14:09; Start 07/30/18 at 13:45 Acetaminophen/ Hydrocodone Bitart (Lortab 5/325) 1 tab PRN Q6HRS PRN PO PAIN; Start 07/30/18 at 13:45 Info (Anti-Coagulation Monitoring By Pharmacy) 1 each PRN DAILY PRN MC SEE COMMENTS Last administered on 07/31/18 14:54; Start 07/30/18 at 14:15 Clopidogrel Bisulfate (Plavix) 75 mg DAILY PO Last administered on 07/31/18 08: 17; Start 07/31/18 at 09:00 Glipizide (Glucotrol) 5 mg BIDWMEALS PO Last administered on 07/31/18 08:16; Start 07/30/18 at 17:00 Pantoprazole Sodium (Protonix) 40 mg HS PO Last administered on 07/30/18 23:23 ; Start 07/30/18 at 21:00 Carvedilol (Coreg) 12.5 mg BIDWMEALS PO Last administered on 07/31/18 08:16; Start 07/30/18 at 17:00 Amlodipine Besylate (Norvasc) 5 mg HS PO Last administered on 07/30/18 23:23; Start 07/30/18 at 21:00 Aspirin (Ecotrin) 162 mg DAILYWBKFT PO Last administered on 07/31/18at 08:17; Start 07/30/18 at 15:30 Atorvastatin Calcium (Lipitor) 20 mg QHS PO Last administered on 07/30/18at 23:23 ; Start 07/30/18 at 21:00 Diazepam (Valium) 5 mg PRN Q6HRS PRN PO ANXIETY 2ND CHOICE; Start 07/30/18 at 21 :30 Cyclobenzaprine HCl (Flexeril) 10 mg 1X ONCE PO Last administered on 07/30/18at 23:22; Start 07/30/18 at 21:45; Stop 07/30/18 at 21:46; Status DC Active Scripts Active Reported Glipizide 5 Mg Tablet 1 Tab PO BID Carvedilol 25 Mg Tablet 0.5 Tab PO BID Plavix (Clopidogrel Bisulfate) 75 Mg Tablet 1 Tab PO DAILY Aspir 81 (Aspirin) 81 Mg Tablet.dr 1 Tab PO QEVNG Proair Hfa Inhaler (Albuterol Sulfate) 8.5 Gm Hfa.aer.ad 2 Puff INH Q4-6HRS PRN Pantoprazole Sodium 40 Mg Tablet.dr 40 Mg PO HS Amlodipine Besylate 10 Mg Tablet 10 Mg PO HS Vitals/I & O Vital Sign - Last 24 Hours 07/30/18 07/30/18 07/30/18 07/30/18 16:33 18:27 19:14 19:20 Temp 98.0 98.0 Pulse 82 81 Resp 20 B/P (MAP) 168/82 144/69 (94) Pulse Ox 95 98 O2 Delivery Room Air Room Air Nasal Cannula O2 Flow Rate 2.0 07/30/18 07/30/18 07/30/18 07/30/18 20:56 21:01 23:23 23:51 Temp 97.5 97.5 Pulse 88 78 Resp 18 B/P (MAP) 172/88 172/88 (116) Pulse Ox 96 96 91 O2 Delivery Room Air Nasal Cannula Room Air O2 Flow Rate 2.0 07/31/18 07/31/18 07/31/18 07/31/18 03:50 06:18 07:00 08:00 Temp 98.1 98.1 98.1 98.1 Pulse 81 81 Resp 18 18 B/P (MAP) 139/70 (93) 144/74 (97) Pulse Ox 93 94 92 O2 Delivery Room Air Room Air Room Air Room Air O2 Flow Rate 2.0 2.0 07/31/18 07/31/18 07/31/18 08:16 11:00 15:00 Temp 97.6 97.9 97.6 97.9 Pulse 81 83 80 Resp 18 17 B/P (MAP) 144/74 145/79 (101) 162/83 (109) Pulse Ox 94 96 O2 Delivery Room Air Room Air Intake and Output 07/30/18 07/30/18 07/31/18 15:00 23:00 07:00 Intake Total 300 ml Output Total 400 ml Balance -400 ml 300 ml SHANITA ÁLVAREZ MD Jul 31, 2018 16:13
[2018-07-31 19:05] VITALS: BP 169/86
--- NOTE | 2018-07-31 20:38 | PDOC ---
PROGRESS NOTES Assessment Problems Medical Problems: (1) CVA (cerebral vascular accident) Status: Acute Plan 83-year-old woman who presented to emergency room with right-sided weakness symptoms started yesterday evening patient had progression of symptoms through the night she presented in the morning to emergency room with difficulty of gait and balance problems with worsening of right-sided weakness patient had extensive cardiac medical history patient is status post pacemaker she had a CT scan done on the brain which did not show any evidence of acute intracranial hemorrhage. There was areas of hypoattenuation noted in periventricular area changes noted for chronic small vessel ischemic disease. Patient was outside the window for IV TPA. Patient has a history of A. fib patient is started on heparin drip. Recommendations appreciated. MRI brain cannot be done due to current medical condition. Will get stroke workup. non revealing K Doppler, 2-D echo. Neuro exam stable. Repeat CT scan tomorrow morning to evaluate for risk for hemorrhagic conversion of stroke. PTOT speech evaluation. Plan discussed with multiple members at bedside, continue medical management. Subjective no acute events Objective Vital Signs Date Time Temp Pulse Resp B/P (MAP) Pulse Ox O2 Delivery O2 Flow Rate FiO2 07/31/18 19:05 98.0 81 20 169/86 (113) 96 Room Air 98.0 07/31/18 08:00 2.0 Intake and Output 07/31/18 07:00 Intake Total 300 ml Output Total 400 ml Balance -100 ml Intake Oral 300 ml Output Urine Total 400 ml # Voids 2 # Bowel Movements 2 PHYSICAL EXAM Otherwise, not -uvtos review of systems. PHYSICAL EXAMINATION: General appearance is no acute distress. HEENT: Normocephalic and nontraumatic. . Neck is supple. No lymphadenopathy. . Cardiovascular: S1, S2 Pulmonary: Clear to auscultation bilaterally. Abdomen: Bowel sounds are positive. Abdomen is soft, nontender, and nondistended. NEUROLOGICAL EXAMINATION: Alert Oriented to time, place and person. PERRL. EOMI. CN: no focal findings. Right facial asymmetry, dysarthria Muscle tone: within normal. Muscle strength: right Sided weakness noted compared to left side. DTR: 1-2 Plantar reflex: Flexor response bilaterally Gait: not examined in bed. Sensory exam: no abnormal findings. No obvious cerebellar signs elicited on left side right side limited by weakness. Duplex ultrasound was used to evaluate the carotid arteries. Real-time imaging, color flow imaging and Doppler with velocity determinations were utilized for evaluation. There is calcified plaque at the distal common carotid artery and carotid bifurcation on the right side. Peak velocity in the right internal carotid artery is 57 cm/s with a systolic velocity index of 2.3 due to a low velocity in the common carotid artery. End diastolic velocity in the right internal carotid artery is 16. There is antegrade flow in the right vertebral. On the left side there is calcified plaque at the carotid bifurcation. Peak velocity in the left internal carotid artery is 63 cm/s with a systolic velocity index of 1.7. End diastolic velocity in the left internal carotid artery is 20 cm/s. There is antegrade flow in the left vertebral. IMPRESSION: 1. Calcified plaque bilaterally with less than 50 percent stenosis. Review of Relevant I have reviewed the following items milena (where applicable) has been applied. Labs Laboratory Tests Test 07/30/18 08:20 07/30/18 08:45 07/30/18 17:28 07/30/18 22:42 Glucose (Fingerstick) 89 mg/dL (70-99) 119 mg/dL (70-99) 132 mg/dL (70-99) White Blood Count 5.2 x10^3/uL (4.0-11.0) Red Blood Count 3.82 x10^6/uL (3.50-5.40) Hemoglobin 12.1 g/dL (12.0-15.5) Hematocrit 35.2 % (36.0-47.0) Mean Corpuscular Volume 92 fL (79-100) Mean Corpuscular Hemoglobin 32 pg (25-35) Mean Corpuscular Hemoglobin Concent 34 g/dL (31-37) Red Cell Distribution Width 14.7 % (11.5-14.5) Platelet Count 243 x10^3/uL (140-400) Prothrombin Time 12.1 SEC (11.7-14.0) Prothromb Time International Ratio 0.9 (0.8-1.1) Activated Partial Thromboplast Time 29 SEC (24-38) Urine Collection Type Unknown Urine Color Yellow Urine Clarity Clear Urine pH 6.0 Urine Specific [place] 1.010 Urine Protein 100 mg/dL (NEG-TRACE) Urine Glucose (UA) Negative mg/dL (NEG) Urine Ketones (Stick) Negative mg/dL (NEG) Urine Blood Negative (NEG) Urine Nitrite Negative (NEG) Urine Bilirubin Negative (NEG) Urine Urobilinogen Dipstick 0.2 mg/dL (0.2 mg/dL) Urine Leukocyte Esterase Small (NEG) Urine RBC 0 /HPF (0-2) Urine WBC 1-4 /HPF (0-4) Urine Squamous Epithelial Cells Mod /LPF Urine Renal Epithelial Cells Occ /LPF Urine Bacteria 0 /HPF (0-FEW) Sodium Level 138 mmol/L (136-145) Potassium Level 4.7 mmol/L (3.5-5.1) Chloride Level 106 mmol/L (98-107) Carbon Dioxide Level 20 mmol/L (21-32) Anion Gap 12 (6-14) Blood Urea Nitrogen 15 mg/dL (7-20) Creatinine 1.2 mg/dL (0.6-1.0) Estimated GFR (Cockcroft-Gault) 42.7 Glucose Level 87 mg/dL (70-99) Calcium Level 8.8 mg/dL (8.5-10.1) Total Bilirubin 0.2 mg/dL (0.2-1.0) Direct Bilirubin 0.1 mg/dL (0.0-0.2) Aspartate Amino Transf (AST/SGOT) 15 U/L (15-37) Alanine Aminotransferase (ALT/SGPT) 12 U/L (14-59) Alkaline Phosphatase 81 U/L (46-116) Total Protein 7.2 g/dL (6.4-8.2) Albumin 3.3 g/dL (3.4-5.0) Test 07/31/18 04:00 07/31/18 08:13 07/31/18 11:17 07/31/18 16:57 Heparin Anti-Xa Act, Unfractionated 0.50 IU/mL (0.30-0.70) Triglycerides Level 277 mg/dL (0-150) Cholesterol Level 189 mg/dL (0-200) LDL Cholesterol, Calculated 102 mg/dL (0-100) VLDL Cholesterol, Calculated 55 mg/dL (0-40) Non-HDL Cholesterol Calculated 157 mg/dL (0-129) HDL Cholesterol 32 mg/dL (40-60) Cholesterol/HDL Ratio 5.9 Glucose (Fingerstick) 95 mg/dL (70-99) 143 mg/dL (70-99) 118 mg/dL (70-99) Laboratory Tests Test 07/30/18 22:42 07/31/18 04:00 07/31/18 08:13 07/31/18 11:17 Glucose (Fingerstick) 132 mg/dL (70-99) 95 mg/dL (70-99) 143 mg/dL (70-99) Heparin Anti-Xa Act, Unfractionated 0.50 IU/mL (0.30-0.70) Triglycerides Level 277 mg/dL (0-150) Cholesterol Level 189 mg/dL (0-200) LDL Cholesterol, Calculated 102 mg/dL (0-100) VLDL Cholesterol, Calculated 55 mg/dL (0-40) Non-HDL Cholesterol Calculated 157 mg/dL (0-129) HDL Cholesterol 32 mg/dL (40-60) Cholesterol/HDL Ratio 5.9 Test 07/31/18 16:57 Glucose (Fingerstick) 118 mg/dL (70-99) Medications Current Medications Ondansetron HCl (Zofran) 4 mg PRN Q8HRS PRN IV NAUSEA/VOMITING; Start 07/30/18 at 09:45; Stop 07/31/18 at 09:44; Status DC Albuterol/ Ipratropium (Duoneb) 3 ml RTQID NEB Last administered on 07/31/18at 11 :33; Start 07/30/18 at 12:00; Stop 07/31/18 at 11:59; Status DC Albuterol/ Ipratropium (Duoneb) 3 ml STK-MED ONCE .ROUTE ; Start 07/30/18 at 10: 06; Stop 07/30/18 at 10:07; Status DC Albuterol/ Ipratropium (Duoneb) 3 ml 1X ONCE NEB Last administered on at 10:14; Start 07/30/18 at 10:15; Stop 07/30/18 at 10:16; Status DC Heparin Sodium/ Dextrose 500 ml @ 0 mls/hr CONT PRN IV SEE I/O RECORD Last administered on 07/31/18at 15:12; Start 07/30/18 at 13:45 Heparin Sodium (Porcine) (Heparin Sodium) 5,000 unit 1X ONCE IV Last administered on 07/30/18at 14:50; Start 07/30/18 at 13:45; Stop 07/30/18 at 14:13; Status DC Alprazolam (Xanax) 0.25 mg PRN Q6HRS PRN PO ANXIETY / AGITATION 1ST CHOICE Last administered on 07/30/18 16:36; Start 07/30/18 at 13:45 Fentanyl Citrate (Fentanyl 2ml Vial) 25 mcg PRN Q3HRS PRN IV PAIN Last administered on 07/30/18 14:09; Start 07/30/18 at 13:45 Acetaminophen/ Hydrocodone Bitart (Lortab 5/325) 1 tab PRN Q6HRS PRN PO PAIN; Start 07/30/18 at 13:45 Info (Anti-Coagulation Monitoring By Pharmacy) 1 each PRN DAILY PRN MC SEE COMMENTS Last administered on 07/31/18 14:54; Start 07/30/18 at 14:15 Clopidogrel Bisulfate (Plavix) 75 mg DAILY PO Last administered on 07/31/18 08: 17; Start 07/31/18 at 09:00 Glipizide (Glucotrol) 5 mg BIDWMEALS PO Last administered on 07/31/18 17:25; Start 07/30/18 at 17:00 Pantoprazole Sodium (Protonix) 40 mg HS PO Last administered on 07/30/18 23:23 ; Start 07/30/18 at 21:00 Carvedilol (Coreg) 12.5 mg BIDWMEALS PO Last administered on 07/31/18 17:25; Start 07/30/18 at 17:00 Amlodipine Besylate (Norvasc) 5 mg HS PO Last administered on 07/30/18 23:23; Start 07/30/18 at 21:00 Aspirin (Ecotrin) 162 mg DAILYWBKFT PO Last administered on 07/31/18 08:17; Start 07/30/18 at 15:30 Atorvastatin Calcium (Lipitor) 20 mg QHS PO Last administered on 07/30/18 23:23 ; Start 07/30/18 at 21:00 Diazepam (Valium) 5 mg PRN Q6HRS PRN PO ANXIETY 2ND CHOICE; Start 07/30/18 at 21 :30 Cyclobenzaprine HCl (Flexeril) 10 mg 1X ONCE PO Last administered on 07/30/18 23:22; Start 07/30/18 at 21:45; Stop 07/30/18 at 21:46; Status DC Active Scripts Active Reported Glipizide 5 Mg Tablet 1 Tab PO BID Carvedilol 25 Mg Tablet 0.5 Tab PO BID Plavix (Clopidogrel Bisulfate) 75 Mg Tablet 1 Tab PO DAILY Aspir 81 (Aspirin) 81 Mg Tablet. 1 Tab PO QEVNG Proair Hfa Inhaler (Albuterol Sulfate) 8.5 Gm Hfa.aer.ad 2 Puff INH Q4-6HRS PRN Pantoprazole Sodium 40 Mg Tablet.dr 40 Mg PO HS Amlodipine Besylate 10 Mg Tablet 10 Mg PO HS Vitals/I & O Vital Sign - Last 24 Hours 07/30/18 07/30/18 07/30/18 07/30/18 20:56 21:01 23:23 23:51 Temp 97.5 97.5 Pulse 88 78 Resp 18 B/P (MAP) 172/88 172/88 (116) Pulse Ox 96 96 91 O2 Delivery Room Air Nasal Cannula Room Air O2 Flow Rate 2.0 07/31/18 07/31/18 07/31/18 07/31/18 03:50 06:18 07:00 08:00 Temp 98.1 98.1 98.1 98.1 Pulse 81 81 Resp 18 18 B/P (MAP) 139/70 (93) 144/74 (97) Pulse Ox 93 94 92 O2 Delivery Room Air Room Air Room Air Room Air O2 Flow Rate 2.0 2.0 07/31/18 07/31/18 07/31/18 07/31/18 08:16 11:00 15:00 17:25 Temp 97.6 97.9 97.6 97.9 Pulse 81 83 80 80 Resp 18 17 B/P (MAP) 144/74 145/79 (101) 162/83 (109) 162/83 Pulse Ox 94 96 O2 Delivery Room Air Room Air 07/31/18 19:05 Temp 98.0 98.0 Pulse 81 Resp 20 B/P (MAP) 169/86 (113) Pulse Ox 96 O2 Delivery Room Air Intake and Output 07/30/18 07/30/18 07/31/18 15:00 23:00 07:00 Intake Total 300 ml Output Total 400 ml Balance -400 ml 300 ml PANCHITO TALAVERA MD Jul 31, 2018 20:37
[2018-07-31 23:05] VITALS: BP 177/94
[2018-07-31] MEDS: ATORVASTATIN CALCIUM 20 MG TABLET PO SCH (23:10)
[2018-07-31] MEDS: ALPRAZolam 0.25 MG TABLET PO PRN (23:10)
[2018-07-31] MEDS: PANTOPRAZOLE 40 MG TABLET.DR. PO SCH (23:11)
[2018-07-31] MEDS: amLODIPine BESYLATE 5 MG TABLET PO SCH (23:11)
[2018-08-01 03:31] VITALS: BP 154/72
[2018-08-01 07:17] VITALS: BP 161/89
[2018-08-01] MEDS: CARVEDILOL 12.5 MG TABLET. PO SCH ×2 (08:02→17:28)
[2018-08-01] MEDS: CLOPIDOGREL BISULFATE 75 MG TABLET PO SCH (08:03)
[2018-08-01] MEDS: ASPIRIN ENTERIC COATED 81 MG TABLET.DR. PO SCH (08:04)
[2018-08-01] MEDS: glipiZIDE 5 MG TABLET PO SCH ×2 (08:04→17:27)
[2018-08-01 11:40] VITALS: BP 140/80
--- NOTE | 2018-08-01 13:23 | PDOC ---
PROGRESS NOTES Subjective Subjective Pt feels a little better and stronger today. Objective Objective Vital Signs Date Time Temp Pulse Resp B/P (MAP) Pulse Ox O2 Delivery O2 Flow Rate FiO2 08/01/18 11:40 97.4 81 22 140/80 (100) 95 Nasal Cannula 2.0 97.4 Intake and Output 08/01/18 07:00 Intake Total 780 ml Output Total 500 ml Balance 280 ml Intake Oral 300 ml IV Total 240 ml Other 240 ml Output Urine Total 500 ml # Voids 5 Physical Exam Physical Exam No changes in cardiac exam. Pt's motor deficit of R arm and leg is better Assessment Assessment CVA: motor deficit improving. CT of the Head is pending. Agree with neurology recommendations Continue IV Heparin. Start warfarin when okay with neurology Comment Review of Relevant I have reviewed the following items milena (where applicable) has been applied. Labs Laboratory Tests Test 07/30/18 17:28 07/30/18 22:42 07/31/18 04:00 07/31/18 08:13 Glucose (Fingerstick) 119 mg/dL (70-99) 132 mg/dL (70-99) 95 mg/dL (70-99) Heparin Anti-Xa Act, Unfractionated 0.50 IU/mL (0.30-0.70) Triglycerides Level 277 mg/dL (0-150) Cholesterol Level 189 mg/dL (0-200) LDL Cholesterol, Calculated 102 mg/dL (0-100) VLDL Cholesterol, Calculated 55 mg/dL (0-40) Non-HDL Cholesterol Calculated 157 mg/dL (0-129) HDL Cholesterol 32 mg/dL (40-60) Cholesterol/HDL Ratio 5.9 Test 07/31/18 11:17 07/31/18 16:57 07/31/18 20:37 08/01/18 07:26 Glucose (Fingerstick) 143 mg/dL (70-99) 118 mg/dL (70-99) 170 mg/dL (70-99) 131 mg/dL (70-99) Test 08/01/18 11:40 Heparin Anti-Xa Act, Unfractionated 0.68 IU/mL (0.30-0.70) Laboratory Tests Test 07/31/18 16:57 07/31/18 20:37 08/01/18 07:26 08/01/18 11:40 Glucose (Fingerstick) 118 mg/dL (70-99) 170 mg/dL (70-99) 131 mg/dL (70-99) Heparin Anti-Xa Act, Unfractionated 0.68 IU/mL (0.30-0.70) Medications Current Medications Ondansetron HCl (Zofran) 4 mg PRN Q8HRS PRN IV NAUSEA/VOMITING; Start 07/30/18 at 09:45; Stop 07/31/18 at 09:44; Status DC Albuterol/ Ipratropium (Duoneb) 3 ml RTQID NEB Last administered on 07/31/18at 11 :33; Start 07/30/18 at 12:00; Stop 07/31/18 at 11:59; Status DC Albuterol/ Ipratropium (Duoneb) 3 ml STK-MED ONCE .ROUTE ; Start 07/30/18 at 10: 06; Stop 07/30/18 at 10:07; Status DC Albuterol/ Ipratropium (Duoneb) 3 ml 1X ONCE NEB Last administered on at 10:14; Start 07/30/18 at 10:15; Stop 07/30/18 at 10:16; Status DC Heparin Sodium/ Dextrose 500 ml @ 0 mls/hr CONT PRN IV SEE I/O RECORD Last administered on 07/31/18at 15:12; Start 07/30/18 at 13:45 Heparin Sodium (Porcine) (Heparin Sodium) 5,000 unit 1X ONCE IV Last administered on 07/30/18at 14:50; Start 07/30/18 at 13:45; Stop 07/30/18 at 14:13; Status DC Alprazolam (Xanax) 0.25 mg PRN Q6HRS PRN PO ANXIETY / AGITATION 1ST CHOICE Last administered on 07/31/18at 23:10; Start 07/30/18 at 13:45 Fentanyl Citrate (Fentanyl 2ml Vial) 25 mcg PRN Q3HRS PRN IV PAIN Last administered on 07/30/18at 14:09; Start 07/30/18 at 13:45 Acetaminophen/ Hydrocodone Bitart (Lortab 5/325) 1 tab PRN Q6HRS PRN PO PAIN; Start 07/30/18 at 13:45 Info (Anti-Coagulation Monitoring By Pharmacy) 1 each PRN DAILY PRN MC SEE COMMENTS Last administered on 07/31/18at 14:54; Start 07/30/18 at 14:15 Clopidogrel Bisulfate (Plavix) 75 mg DAILY PO Last administered on 08/01/18at 08 :03; Start 07/31/18 at 09:00 Glipizide (Glucotrol) 5 mg BIDWMEALS PO Last administered on 08/01/18 08:04; Start 07/30/18 at 17:00 Pantoprazole Sodium (Protonix) 40 mg HS PO Last administered on 07/31/18 23:11 ; Start 07/30/18 at 21:00 Carvedilol (Coreg) 12.5 mg BIDWMEALS PO Last administered on 08/01/18 08:02; Start 07/30/18 at 17:00 Amlodipine Besylate (Norvasc) 5 mg HS PO Last administered on 07/31/18 23:11; Start 07/30/18 at 21:00 Aspirin (Ecotrin) 162 mg DAILYWBKFT PO Last administered on 08/01/18at 08:04; Start 07/30/18 at 15:30 Atorvastatin Calcium (Lipitor) 20 mg QHS PO Last administered on 07/31/18 23:10 ; Start 07/30/18 at 21:00 Diazepam (Valium) 5 mg PRN Q6HRS PRN PO ANXIETY 2ND CHOICE; Start 07/30/18 at 21 :30 Cyclobenzaprine HCl (Flexeril) 10 mg 1X ONCE PO Last administered on 07/30/18at 23:22; Start 07/30/18 at 21:45; Stop 07/30/18 at 21:46; Status DC Active Scripts Active Reported Glipizide 5 Mg Tablet 1 Tab PO BID Carvedilol 25 Mg Tablet 0.5 Tab PO BID Plavix (Clopidogrel Bisulfate) 75 Mg Tablet 1 Tab PO DAILY Aspir 81 (Aspirin) 81 Mg Tablet.dr 1 Tab PO QEVNG Proair Hfa Inhaler (Albuterol Sulfate) 8.5 Gm Hfa.aer.ad 2 Puff INH Q4-6HRS PRN Pantoprazole Sodium 40 Mg Tablet.dr 40 Mg PO HS Amlodipine Besylate 10 Mg Tablet 10 Mg PO HS Vitals/I & O Vital Sign - Last 24 Hours 07/31/18 07/31/18 07/31/18/9/18 15:00 17:25 19:05 20:00 Temp 97.9 98.0 97.9 98.0 Pulse 80 80 81 Resp 17 20 B/P (MAP) 162/83 (109) 162/83 169/86 (113) Pulse Ox 96 96 O2 Delivery Room Air Room Air Room Air 07/31/18 07/31/18 08/01/18 08/01/18 23:05 23:11 03:31 07:17 Temp 98.2 98.4 97.3 98.2 98.4 97.3 Pulse 79 81 81 79 Resp 18 21 20 B/P (MAP) 177/94 (121) 169/86 154/72 (99) 161/89 (113) Pulse Ox 96 95 93 O2 Delivery Room Air Room Air Nasal Cannula O2 Flow Rate 2.0 08/01/18 08/01/18 08/01/18 08/01/18 07:31 08:00 08:02 11:40 Temp 97.4 97.4 Pulse 80 81 Resp 22 B/P (MAP) 161/89 140/80 (100) Pulse Ox 95 O2 Delivery Nasal Cannula Nasal Cannula Nasal Cannula O2 Flow Rate 2.0 2.0 2.0 Intake and Output 07/31/18 07/31/18 08/01/18 15:00 23:00 07:00 Intake Total 240 ml 540 ml Output Total 500 ml Balance -260 ml 540 ml SHANITA ÁLVAREZ MD Aug 01, 2018 13:23
--- NOTE | 2018-08-01 13:32 | PDOC ---
PROGRESS NOTES Assessment Assessment IMPRESSION: CVA syndrome. Right side weakness. AFib. CAD. HTN. HLD. DM. Cognitive impairment. 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 Pacemaker placement. RECOMMENDATIONS/PLAN: Continue Plavix 75 mf daily. She also on ASA 162 mg daily. Continue Lipitor 20 mg HS. Treat medical and cardiac diseases. OT/PT. Rehab. Past Medical History Cardiovascular: AFIB, CAD, CHF, HTN, Hyperlipidemia, Aortic stenosis. Pulmonary: Bronchitis. CENTRAL NERVOUS SYSTEM: see above. GI: Other Heme/Onc: Cancer Hepatobiliary: No pertinent hx Psych: No pertinent hx, Anxiety Musculoskeletal: Osteoarthritis Rheumatologic: No pertinent hx Infectious disease: No pertinent hx Renal/: No pertinent hx Endocrine: Diabetes Past Surgical History Appendectomy, Cholecystectomy, Hernia Repair, Hysterectomy, Colon Resection, Other Social History ALCOHOL: none Drugs: None Lives: with Family Domestic Violence: Neg ALLERGY: Reviewed. MEDICATIONS: Refer to [facility] REVIEW OF SYSTEMS: Constitutional: Mild malnutrition appearance. Head: No traumatic brain or head injury. Skin: No edema, or rash. Ear: Hearing loss. Eyes: No vision loss, or diplopia. Nose: No bleeding or purulent discharges. Hearing: Hearing loss. Neck: No injury. Cardiac: CAD, AFib, Pacemaker Placement, HTN, HLD Pulmonary: No COPD. GI: No GI Ulcer, GI bleeding Urinary/genital: UTI. Endocrine: Diabetes Mellitus. Skeletomuscular: No muscular atrophy, deformity. Neurological: see HP. Psychiatric: Denies drug use/abuse. Otherwise, not [id number] review of systems. PHYSICAL EXAMINATION: General appearance in subacute distress. HEENT: Normocephalic and nontraumatic. Eyes, nose, and throat are unremarkable. Hearing loss. Neck is supple. No lymphadenopathy. No bruits are heard over the carotid artery. No Crepitus. Cardiovascular: S1, S2, irregular rate and rhythm. Pulmonary: Clear to auscultation bilaterally. Abdomen: Bowel sounds are positive. Abdomen is soft, nontender, and nondistended. Extremities: No rash, lesions, or edema. No restriction of range of motion NEUROLOGICAL EXAMINATION: Awake. Not oriented to time, but knew place and person. PERRL. EOMI. CN: no focal findings. Muscle tone: Decreased in right UE. Normal in rest. Muscle strength: 2 right paroxysmal and 3 distal. 3 right LE. 4 + left side. DTR: 1 right side, 2 left side. Plantar reflex: Neutral response bilaterally Gait: Unable to walk. Sensory exam: no acute findings. No cerebellar signs elicited. F-T-N test fine. Objective Objective Vital Signs Date Time Temp Pulse Resp B/P (MAP) Pulse Ox O2 Delivery O2 Flow Rate FiO2 08/01/18 11:40 97.4 81 22 140/80 (100) 95 Nasal Cannula 2.0 97.4 Intake and Output 08/01/18 07:00 Intake Total 780 ml Output Total 500 ml Balance 280 ml Intake Oral 300 ml IV Total 240 ml Other 240 ml Output Urine Total 500 ml # Voids 5 Vitals Signs Vitals VS - Last 72 Hours, by Label Date Time Temp Pulse Resp B/P (MAP) Pulse Ox O2 Delivery O2 Flow Rate FiO2 08/01/18 11:40 97.4 81 22 140/80 (100) 95 Nasal Cannula 2.0 97.4 08/01/18 08:02 80 161/89 08/01/18 08:00 Nasal Cannula 2.0 08/01/18 07:31 Nasal Cannula 2.0 08/01/18 07:17 97.3 79 20 161/89 (113) 93 Nasal Cannula 2.0 97.3 08/01/18 03:31 98.4 81 21 154/72 (99) 95 Room Air 98.4 07/31/18 23:11 81 169/86 07/31/18 23:05 98.2 79 18 177/94 (121) 96 Room Air 98.2 07/31/18 20:00 Room Air 07/31/18 19:05 98.0 81 20 169/86 (113) 96 Room Air 98.0 07/31/18 17:25 80 162/83 07/31/18 15:00 97.9 80 17 162/83 (109) 96 Room Air 97.9 07/31/18 11:00 97.6 83 18 145/79 (101) 94 Room Air 97.6 07/31/18 08:16 81 144/74 07/31/18 08:00 Room Air 2.0 07/31/18 07:00 98.1 81 18 144/74 (97) 92 Room Air 2.0 98.1 Laboratory Laboratory Laboratory Tests Test 07/31/18 16:57 07/31/18 20:37 08/01/18 07:26 08/01/18 11:40 Glucose (Fingerstick) 118 mg/dL (70-99) 170 mg/dL (70-99) 131 mg/dL (70-99) Heparin Anti-Xa Act, Unfractionated 0.68 IU/mL (0.30-0.70) Comment Review of Relevant I have reviewed the following items milena (where applicable) has been applied. REMEDIOS ARANGO MD Aug 01, 2018 13:32
[2018-08-01] MEDS: ANTI-COAG MONITOR BY PHARMACY. MC PRN (14:40)
[2018-08-01] MEDS: HEPARIN 25,000UTS/500ML PREMIX 500 ML IV PRN (15:06)
[2018-08-01 15:27] VITALS: BP 186/93
[2018-08-01 18:37] VITALS: BP 157/81
[2018-08-01] MEDS: PANTOPRAZOLE 40 MG TABLET.DR. PO SCH (20:29)
[2018-08-01] MEDS: amLODIPine BESYLATE 5 MG TABLET PO SCH (20:29)
[2018-08-01] MEDS: ATORVASTATIN CALCIUM 20 MG TABLET PO SCH (20:29)
[2018-08-01 23:00] VITALS: BP 152/89
[2018-08-02 02:06] VITALS: BP 159/81
[2018-08-02 07:15] VITALS: BP_SYST 147; BP_SYST 165; BP_DIAS 63; BP_DIAS 84
[2018-08-02] MEDS: CARVEDILOL 12.5 MG TABLET. PO SCH (08:17)
[2018-08-02] MEDS: ASPIRIN ENTERIC COATED 81 MG TABLET.DR. PO SCH (08:18)
[2018-08-02] MEDS: glipiZIDE 5 MG TABLET PO SCH (08:18)
[2018-08-02] MEDS: CLOPIDOGREL BISULFATE 75 MG TABLET PO SCH (08:18)
[2018-08-02 11:00] VITALS: BP 138/79
[2018-08-02] MEDS: ANTI-COAG MONITOR BY PHARMACY. MC PRN (15:17)
--- NOTE | 2018-08-02 16:46 | PDOC ---
PROGRESS NOTES Assessment Assessment CVA syndrome. Right side weakness. AFib. CAD. HTN. HLD. DM. Cognitive impairment. 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 Pacemaker placement. RECOMMENDATIONS/PLAN: Continue Plavix 75 mg daily. She also on ASA 162 mg daily. Continue Lipitor 20 mg HS. Treat medical and cardiac diseases. OT/PT. Rehab. Past Medical History Cardiovascular: AFIB, CAD, CHF, HTN, Hyperlipidemia, Aortic stenosis. Pulmonary: Bronchitis. CENTRAL NERVOUS SYSTEM: see above. GI: Other Heme/Onc: Cancer Hepatobiliary: No pertinent hx Psych: No pertinent hx, Anxiety Musculoskeletal: Osteoarthritis Rheumatologic: No pertinent hx Infectious disease: No pertinent hx Renal/: No pertinent hx Endocrine: Diabetes Past Surgical History Appendectomy, Cholecystectomy, Hernia Repair, Hysterectomy, Colon Resection, Other Social History ALCOHOL: none Drugs: None Lives: with Family Domestic Violence: Neg ALLERGY: Reviewed. MEDICATIONS: Refer to [facility] REVIEW OF SYSTEMS: Constitutional: Mild malnutrition appearance. Head: No traumatic brain or head injury. Skin: No edema, or rash. Ear: Hearing loss. Eyes: No vision loss, or diplopia. Nose: No bleeding or purulent discharges. Hearing: Hearing loss. Neck: No injury. Cardiac: CAD, AFib, Pacemaker Placement, HTN, HLD Pulmonary: No COPD. GI: No GI Ulcer, GI bleeding Urinary/genital: UTI. Endocrine: Diabetes Mellitus. Skeletomuscular: No muscular atrophy, deformity. Neurological: see HP. Psychiatric: Denies drug use/abuse. Otherwise, not -zavvn review of systems. PHYSICAL EXAMINATION: General appearance in subacute distress. HEENT: Normocephalic and nontraumatic. Eyes, nose, and throat are unremarkable. Hearing loss. Neck is supple. No lymphadenopathy. No bruits are heard over the carotid artery. No Crepitus. Cardiovascular: S1, S2, irregular rate and rhythm. Pulmonary: Clear to auscultation bilaterally. Abdomen: Bowel sounds are positive. Abdomen is soft, nontender, and nondistended. Extremities: No rash, lesions, or edema. No restriction of range of motion NEUROLOGICAL EXAMINATION: Awake. Not fully oriented to time, but knew place and person. PERRL. EOMI. CN: no focal findings. Muscle tone: Decreased in right UE. Normal in rest. Muscle strength: 2-3 right UE. 3 right LE. 4 + left side. DTR: 1 right side, 2 left side. Plantar reflex: Neutral response bilaterally Gait: Unable to walk. Sensory exam: no acute findings. No cerebellar signs elicited. F-T-N test fine in left hand. Objective Objective Vital Signs Date Time Temp Pulse Resp B/P (MAP) Pulse Ox O2 Delivery O2 Flow Rate FiO2 08/02/18 11:00 97.4 81 18 138/79 (98) 95 Nasal Cannula 2.0 97.4 Intake and Output 08/02/18 07:00 Intake Total 270 ml Output Total 1710 ml Balance -1440 ml Intake Oral 270 ml Output Urine Total 1710 ml # Voids 3 Vitals Signs Vitals VS - Last 72 Hours, by Label Date Time Temp Pulse Resp B/P (MAP) Pulse Ox O2 Delivery O2 Flow Rate FiO2 08/02/18 11:00 97.4 81 18 138/79 (98) 95 Nasal Cannula 2.0 97.4 08/02/18 08:17 78 165/84 08/02/18 08:00 Nasal Cannula 2.0 08/02/18 07:15 98.0 78 20 165/84 (111) 98 Nasal Cannula 2.0 98.0 08/02/18 02:06 97.5 79 20 159/81 (107) 94 Nasal Cannula 2.0 97.5 08/01/18 23:00 97.6 96 18 152/89 (110) 98 Nasal Cannula 2.0 97.6 08/01/18 20:29 81 157/81 08/01/18 20:00 Nasal Cannula 2.0 08/01/18 18:37 97.6 81 20 157/81 (106) 96 Nasal Cannula 2.0 97.6 08/01/18 17:28 85 186/93 08/01/18 15:27 97.6 85 20 186/93 (124) 97 Nasal Cannula 2.0 97.6 08/01/18 11:40 97.4 81 22 140/80 (100) 95 Nasal Cannula 2.0 97.4 08/01/18 08:02 80 161/89 08/01/18 08:00 Nasal Cannula 2.0 08/01/18 07:31 Nasal Cannula 2.0 08/01/18 07:17 97.3 79 20 161/89 (113) 93 Nasal Cannula 2.0 97.3 Laboratory Laboratory Laboratory Tests Test 08/01/18 17:12 08/01/18 19:53 08/02/18 05:21 08/02/18 07:09 Glucose (Fingerstick) 130 mg/dL (70-99) 170 mg/dL (70-99) 138 mg/dL (70-99) Heparin Anti-Xa Act, Unfractionated 0.57 IU/mL (0.30-0.70) Test 08/02/18 08:16 08/02/18 12:24 Glucose (Fingerstick) 145 mg/dL (70-99) 177 mg/dL (70-99) Comment Review of Relevant I have reviewed the following items milena (where applicable) has been applied. REMEDIOS ARANGO MD Aug 02, 2018 16:46
== END 2018-08-02 15:20 | DRG 65 ==
LOC: ER 08:10 → 2 NORTH 09:34
PROVIDERS: ADMIT Internal Medicine Cardiovascular Disease; ATTEND Internal Medicine Cardiovascular Disease
DX: I63.8 Other cerebral infarction (principal); G81.91 Hemiplegia, unspecified affecting right dominant side; E44.1 Mild protein-calorie malnutrition; Z68.1 Body mass index [BMI] 19.9 or less, adult; I11.0 Hypertensive heart disease with heart failure; I50.9 Heart failure, unspecified; D64.9 Anemia, unspecified; E11.51 Type 2 diabetes mellitus with diabetic peripheral angiopathy without gangrene; I48.2 Chronic atrial fibrillation; I25.10 Atherosclerotic heart disease of native coronary artery without angina pectoris; M19.90 Unspecified osteoarthritis, unspecified site; I34.0 Nonrheumatic mitral (valve) insufficiency; E78.5 Hyperlipidemia, unspecified; H91.91 Unspecified hearing loss, right ear; I35.0 Nonrheumatic aortic (valve) stenosis; Z79.82 Long term (current) use of aspirin; Z90.49 Acquired absence of other specified parts of digestive tract; Z89.429 Acquired absence of other toe(s), unspecified side; Z95.1 Presence of aortocoronary bypass graft; Z95.0 Presence of cardiac pacemaker; Z79.02 Long term (current) use of antithrombotics/antiplatelets; Z90.710 Acquired absence of both cervix and uterus
CPT/HCPCS: 36415; 70450; 72125; 73521; 80048; 80061; 80076; 81001; 82962; 85027; 85520; 85610; 85730; 87086; 93005; 93306; 93880; 94640; 99406; J1644; J3010; J7620; 92526; 92610; 97110; 97116; 97530; 97535; 99285-25

== ENCOUNTER 2019-09-26 08:10 | Outpatient (CLI) | payer MEDICARE ==
[~2019-09-26] VITALS: Ht 160 cm; Wt 59.9 kg
[~2019-09-26 08:10] MED LIST changes: +ALBU2.5V8 INH; -AMLO10TA6 PO; +AMLO10TA8 PO; +HYDR-3135 PO; +HYDR-3164 PO; -HYDR-963 PO; -HYDR-971 PO; -PANT40TA5 PO; +PANT40TA77 PO; -PROAIR HFA8.5 GM INH
[2019-09-26] MEDS ORDERED: BACITRACIN 50,000 UNIT in IV NORMAL SALINE 250ML 250 ML IRR ONE (08:30)
[2019-09-26 08:40] VITALS: BP 156/78
[2019-09-26 08:42] LABS: HEMATOCRIT 37.6 % (36.0-47.0); HEMOGLOBIN 12.8 g/dL (12.0-15.5); RED BLOOD COUNT 4.03 x10^6/uL (3.50-5.40); RED CELL DISTRIBUTION WIDTH 15.1 % (11.5-14.5); WHITE BLOOD COUNT 5.3 x10^3/uL (4.0-11.0)
[2019-09-26] MEDS ORDERED: ROPI1TAB2 PO (08:44)
[2019-09-26 08:51] LABS: PROTHROMBIN TIME PATIENT 11.9 SEC (11.7-14.0)
[2019-09-26 08:52] LABS: CALCIUM 8.7 mg/dL (8.5-10.1); CREATININE 1.5 mg/dL (0.6-1.0); GFR 32.9; POTASSIUM 4.2 mmol/L (3.5-5.1)
--- NOTE | 2019-09-26 08:56 | EKG ---
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: SMILEY : 1935 Requested By: VONNIE WASHINGTON Order Number: [id number] Reading MD: Measurements Intervals [place] Rate: 80 P: MO: QRS: 126 QRSD: 104 T: 121 QT: 450 QTc: 523 Interpretive Statements ACCELERATED JUNCTIONAL RHYTHM ABNORMAL RIGHT AXIS DEVIATION R-S TRANSITION ZONE IN V LEADS DISPLACED TO THE RIGHT LVH WITH REPOLARIZATION ABNORMALITY RIGHT VENTRICULAR HYPERTROPHY PROLONGED QT ABNORMAL ECG RI6.01 Unconfirmed report Compared to ECG 07/30/2018 09:03:35 Accelerated junctional rhythm now present Right-axis deviation now present Left ventricular hypertrophy now present Early repolarization now present Right ventricular hypertrophy now present Prolonged QT interval now present Ventricular-paced complex(es) or rhythm no longer present
[2019-09-26] MEDS ORDERED: MIDAZOLAM HCL/PF 2 MG/2 ML VIAL. ONE (09:25)
[2019-09-26] MEDS ORDERED: fentaNYL PF VIAL 100 MCG/2 ML VIAL ONE (09:25)
[2019-09-26] MEDS ORDERED: LIDOCAINE 2%/EPI 1:100,000 20 ML VIAL. ONE (10:21)
--- NOTE | 2019-09-26 10:21 | PDOC ---
MODERATE SEDATION ASSESSMENT RISKS/ALTERNATIVES Risks/Alternatives Risks and alternatives of this type of sedation and procedure discussed with: RISK/ALTERNATIVES: Patient H & P ON CHART H & P H & P on chart and reviewed for co-morbid conditions and appropriate labs. H&P ON CHART: Yes STATUS PREG STATUS ASSESSED: N/A MEDS/ALLERGIES REVIEWED Meds/Allergies Reviewed Medications and Allergies including time and route of recently administered narcotics and sedatives. MEDS/ALLERGIES REVIEWED: Yes ASA RATING ASA RATING: II AIRWAY ASSESSMENT Airway Assessment Airway patency, oral function limitations, presence of caps, crowns, dentures, partials, and ability to extend neck assessed. AIRWAY ASSESSMENT: Yes MALLAMPATI SCORE MALLAMPATI SCORE: II PRE-SEDATION ASSESSMENT PRE-SEDATION ASSESSMENT: Yes VONNIE WASHINGTON MD Sep 26, 2019 10:21
[2019-09-26] MEDS ORDERED: LIDOCAINE 2%/EPI 1:100,000 20 ML VIAL. IJ ONE (10:45)
[2019-09-26] MEDS ORDERED: MIDAZOLAM HCL/PF 2 MG/2 ML VIAL. IV ONE (10:45)
[2019-09-26] MEDS ORDERED: fentaNYL PF VIAL 100 MCG/2 ML VIAL IV ONE (10:45)
[2019-09-26 11:41] VITALS: BP 152/87
[2019-09-26 12:10] VITALS: BP 135/77
[2019-09-26 12:25] VITALS: BP 161/76
[2019-09-26 12:40] VITALS: BP 158/78
[2019-09-26 13:20] VITALS: BP 163/82
--- NOTE | 2019-09-26 13:27 | NUR ---
Discharge Note: WILLIAM STEWART Discharge instructions and discharge home medications reviewed with Patient and a copy given. All questions have been answered and understanding verbalized. Patient left with her daughter via Private Vehicle
--- NOTE | 2019-09-26 15:13 | CARD ---
MR#: [id number] Date of Study: 09/26/2019 Ordering Physician: VONNIE WASHINGTON, Referring Physician: VONNIE WASHINGTON, Tech: APPROVED REPORT HISTORY The Patient is a 84 year-old female with a history of ischemic CMP s/p BiV ICD presenting to the [facility] for elective generator change for ELIDA. PROCEDURES Moderate Sedation time: 80 minutes Fluoro time: 0.0 min Dose: 0.03 Gycm2 INDICATIONS Battery depletion. IMPLANTED DEVICES After appropriate informed consent the patient was prepped and draped in usual sterile fashion. The l eft chest wall at the site of the previous ICD implant was infiltrated with 20 mL of 2% lidocaine loc al anesthesia. Next, using a 11 blade scalpel a incision approximately 2 inches in length was made ov er the previous generator site. Due to significant skin and frailty and scar tissue formation in the pocket the case was complicated requiring prolonged dissection of the leads and ultimately the genera tor and leads were removed from the pocket. The previous generator was removed and a Medtronic model DTM C1 D1 with serial number [id number] was placed after being connected to the leads in the previou s pocket. Significant irrigation of the pocket was performed with bacitracin solution. The leads were working appropriately. The device was then placed back in the pocket and the incision was closed in 3 layers. No acute complications noted. CONCLUSION Successful medtronic BiV ICD generator change for battery depletion. Signed by : Vonnie Washington, Electronically Approved : 09/26/2019 15:13:11
== END 2019-09-26 13:28 | disposition home or self-care (01) ==
LOC: CCL 08:10
PROVIDERS: ATTEND Internal Medicine Cardiovascular Disease
DX: T82.528A Displacement of other cardiac and vascular devices and implants, initial encounter (principal); J44.9 Chronic obstructive pulmonary disease, unspecified; I11.9 Hypertensive heart disease without heart failure; I43 Cardiomyopathy in diseases classified elsewhere; F17.210 Nicotine dependence, cigarettes, uncomplicated; I25.10 Atherosclerotic heart disease of native coronary artery without angina pectoris; Z79.01 Long term (current) use of anticoagulants; Z86.74 Personal history of sudden cardiac arrest; Z79.82 Long term (current) use of aspirin; Z85.038 Personal history of other malignant neoplasm of large intestine; Z86.73 Personal history of transient ischemic attack (TIA), and cerebral infarction without residual deficits; Z90.49 Acquired absence of other specified parts of digestive tract; Z90.710 Acquired absence of both cervix and uterus; Z90.722 Acquired absence of ovaries, bilateral; Z95.0 Presence of cardiac pacemaker; Y83.8 Other surgical procedures as the cause of abnormal reaction of the patient, or of later complication, without mention of misadventure at the time of the procedure; Y92.89 Other specified places as the place of occurrence of the external cause
CPT/HCPCS: 33264; 36415; 80048; 85027; 85610; 93005; 99152; 99153; C1882; J0690; J2250; J3010; J3490; J7050; 33263; J7030

== ENCOUNTER 2019-10-15 11:41 | Emergency (ER) | payer MEDICARE ==
[~2019-10-15] VITALS: Ht 157.5 cm; Wt 59.0 kg
[~2019-10-15 11:41] MED LIST changes: +ROPI1TAB2 PO
--- NOTE | 2019-10-15 12:36 | PHYS DOC ---
Past Medical History Past Medical History: Anemia, Arrhythmia, Diabetes-Type II, Hypertension, Lung Disease, P.U.D. Past Surgical History: Appendectomy, Cholecystectomy, Coronary Bypass Surgery, Pacemaker, Other Additional Past Surgical Histo: Right femoral bypass, pacer/defib,TOE AMPUTATION Smoking: Cigarettes Alcohol Use: None Drug Use: None Adult General Chief Complaint Chief Complaint: BACK PAIN - NO INJURY HPI HPI Patient is an 84-year-old female who presents to the emergency department for evaluation. The patient states that for the past few days she has had some pain in her back, mostly in her mid and lower back, along with some central abdominal discomfort. He has not had any nausea, vomiting, diarrhea, black or bloody stools, or urinary symptoms. She has not had any focal numbness or weakness, or increased incontinence, although her family states that she has had an increasing shuffling gait over the past few days, although she was able to ambulate with the use of her walker to the car. She denies any back injuries. There are no alleviating or exacerbating factors to her symptoms, except that movement around seems to worsen her pain. Review of Systems Review of Systems Constitutional: Denies fever or chills [] Eyes: Denies change in visual acuity, redness, or eye pain [] HENT: Denies nasal congestion or sore throat [] Respiratory: Denies cough or shortness of breath [] Cardiovascular: The patient denies any shortness of breath, chest pain, palpitations, or orthopnea[] GI: Denies nausea, vomiting, bloody stools or diarrhea [] : Denies dysuria or hematuria [] Musculoskeletal: Denies neck pain or joint pain [] Integument: Denies rash or skin lesions [] Neurologic: Denies headache, focal weakness or sensory changes. Her family reports some generalized weakness.[] Endocrine: Denies polyuria or polydipsia [] All other systems were reviewed and found to be within normal limits, except as documented in this note. Current Medications Current Medications Current Medications Medications (Trade) Dose Ordered Sig/Megan Start Time Stop Time Status Last Admin Dose Admin Fentanyl Citrate (Fentanyl 2ml Vial) 50 mcg 1X ONCE 10/15/19 15:45 10/15/19 15:46 DC Info (CONTRAST GIVEN -- Rx MONITORING) 1 each PRN DAILY PRN 10/15/19 14:30 10/17/19 14:29 Iohexol (Omnipaque 300 Mg/ml) 60 ml 1X ONCE 10/15/19 15:00 10/15/19 15:01 DC Morphine Sulfate (Morphine Sulfate) 4 mg 1X ONCE 10/15/19 13:00 10/15/19 13:01 DC 10/15/19 13:49 4 MG Sodium Chloride 1,000 ml @ 1,000 mls/hr 1X ONCE 10/15/19 15:00 10/15/19 15:59 DC 10/15/19 14:44 1,000 MLS/HR Allergies Allergies Allergies Coded Allergies Type Severity Reaction Last Updated Verified No Known Drug Allergies 09/11/15 No Physical Exam Physical Exam PHYSICAL EXAM: CONSTITUTIONAL: Well developed, well nourished HEAD: normocephalic, atraumatic EENT: PERRL, EOMI. Conjunctivae normal color, sclerae non-icteric; moist mucous membranes. NECK: Supple, non-tender; no meningismus. LUNGS: Lungs CTA, breathing even and unlabored. Normal air movement. HEART: Regular rate and rhythm, no murmur CHEST: No deformity; non-tender ABDOMEN: The abdomen is soft, there is mild mid abdominal tenderness to palpation, without rebound or guarding, the remainder the abdomen is relatively soft and non-tender, no masses or bruits. EXTREM: Normal ROM; no deformity, no calf tenderness. Normal pulses palpable in all extremities. There is no pedal edema. SKIN: No rash; no diaphoresis NEURO: Alert; normal speech and cognition; CN's grossly intact; strength grossly intact without focal deficit. There is no foot drop. Patellar reflexes are 2+ bilaterally. Distal a perineal sensation is normal. There is normal range of motion in the lower extremities bilaterally. BACK: No CVA TTP. There is tenderness to palpation from the mid and lower thoracic spine, down through the lumbar spine, diffusely, without focal bony tenderness to palpation or step-off, although kyphotic changes are present. Current Patient Data Vital Signs Vital Signs Date Time Temp Pulse Resp B/P (MAP) Pulse Ox O2 Delivery O2 Flow Rate FiO2 10/15/19 16:11 88 14 195/91 (125) 93 Nasal Cannula 2.0 10/15/19 12:20 98.8 98.8 Lab Values Laboratory Tests Test 10/15/19 13:30 10/15/19 15:45 White Blood Count 10.3 x10^3/uL (4.0-11.0) Red Blood Count 4.29 x10^6/uL (3.50-5.40) Hemoglobin 13.6 g/dL (12.0-15.5) Hematocrit 40.1 % (36.0-47.0) Mean Corpuscular Volume 93 fL (79-100) Mean Corpuscular Hemoglobin 32 pg (25-35) Mean Corpuscular Hemoglobin Concent 34 g/dL (31-37) Red Cell Distribution Width 14.5 % (11.5-14.5) Platelet Count 201 x10^3/uL (140-400) Neutrophils (%) (Auto) 76 % (31-73) H Lymphocytes (%) (Auto) 14 % (24-48) L Monocytes (%) (Auto) 8 % (0-9) Eosinophils (%) (Auto) 1 % (0-3) Basophils (%) (Auto) 1 % (0-3) Neutrophils # (Auto) 7.9 x10^3/uL (1.8-7.7) H Lymphocytes # (Auto) 1.4 x10^3/uL (1.0-4.8) Monocytes # (Auto) 0.8 x10^3/uL (0.0-1.1) Eosinophils # (Auto) 0.1 x10^3/uL (0.0-0.7) Basophils # (Auto) 0.1 x10^3/uL (0.0-0.2) Sodium Level 138 mmol/L (136-145) Potassium Level 4.1 mmol/L (3.5-5.1) Chloride Level 103 mmol/L (98-107) Carbon Dioxide Level 21 mmol/L (21-32) Anion Gap 14 (6-14) Blood Urea Nitrogen 20 mg/dL (7-20) Creatinine 1.5 mg/dL (0.6-1.0) H Estimated GFR (Cockcroft-Gault) 32.9 BUN/Creatinine Ratio 13 (6-20) Glucose Level 83 mg/dL (70-99) Calcium Level 9.2 mg/dL (8.5-10.1) Total Bilirubin 0.6 mg/dL (0.2-1.0) Aspartate Amino Transferase (AST) 15 U/L (15-37) Alanine Aminotransferase (ALT) 9 U/L (14-59) L Alkaline Phosphatase 101 U/L (46-116) Troponin I Quantitative < 0.017 ng/mL (0.000-0.055) Total Protein 7.4 g/dL (6.4-8.2) Albumin 3.4 g/dL (3.4-5.0) Albumin/Globulin Ratio 0.9 (1.0-1.7) L Lipase 64 U/L (73-393) L Urine Collection Type U cath Urine Color Yellow Urine Clarity Clear Urine pH 5.5 Urine Specific [place] 1.020 Urine Protein >=300 mg/dL (NEG-TRACE) Urine Glucose (UA) Negative mg/dL (NEG) Urine Ketones (Stick) Trace mg/dL (NEG) Urine Blood Negative (NEG) Urine Nitrite Negative (NEG) Urine Bilirubin Negative (NEG) Urine Urobilinogen Dipstick 0.2 mg/dL (0.2 mg/dL) Urine Leukocyte Esterase Negative (NEG) Urine RBC 0 /HPF (0-2) Urine WBC Occ /HPF (0-4) Urine Squamous Epithelial Cells Occ /LPF Urine Amorphous Sediment Present /HPF Urine Bacteria Few /HPF (0-FEW) Urine Mucus Mod /LPF Laboratory Tests 10/15/19 13:30 Laboratory Tests 10/15/19 13:30 EKG EKG Probable underlying atrial fibrillation with a ventricular paced rhythm at a rate of 80 beats for minute, with a right bundle branch block pattern, without acute ischemic changes noted.[] Radiology/Procedures Radiology/Procedures PROCEDURE: PORTABLE CHEST 1V Examination: PORTABLE CHEST 1V History: Chest pain Comparison/Correlation: 10/17/2017 frontal view of the chest Findings: Portable upright frontal view of the chest was obtained. Triple lead left-sided ICD is present. Sternal wires are present. Heart size within normal limits. Slight vascular congestion. Moderate-sized hiatal hernia is present. Interstitial thickening of the lung martinez again seen. Discoid atelectasis or possibly fluid within fissure noted at the upper to mid right lung field. Impression: Hiatal hernia. Slight pulmonary vascular congestion.[] PROCEDURE: CT THORACIC SPINE WO CONTRAST EXAM: 1. CT ABDOMEN/PELVIS WITH CONTRAST. 2. CT THORACIC AND LUMBAR SPINE WITHOUT CONTRAST. HISTORY: Abdominal pain. Back pain. TECHNIQUE: Computed tomography of the abdomen and pelvis was performed after the intravenous administration of iodinated contrast. CT of the thoracic and lumbar spine was performed without intravenous contrast. COMPARISON: None. FINDINGS: There are vertebroplasty changes at a severe compression deformity at T7. There is a mild loss of height from T8 through T11. No open fracture lines are seen. Osteopenia is moderate to severe. There is no significant retropulsion. There is only mild exaggeration of the thoracic kyphosis. A minimal dextrocurvature is within normal limits. Left neural foraminal stenosis is moderate to severe from T7 through T9 on the left and moderate from T5 through T7 bilaterally there is no clear central canal stenosis. There are no lumbar fractures. Degenerative disc disease is mild from L2 through L4. Alignment is maintained. Posterior disc bulges are moderate from L1 through L4 and small more inferiorly. Facet and ligamentum flavum hypertrophy is moderate to severe at L3-4 resulting in severe central canal stenosis. Central canal stenosis is mild at L2-3 and L4-5. Neural foraminal stenosis is moderate on the right at L3-4 and mild elsewhere from L2 through L4. Changes of median sternotomy, coronary artery bypass grafting and aortic valve replacement are noted. There is a large hiatal hernia. Debris within the thoracic esophagus is consistent with reflux. 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 There are diffuse atherosclerotic calcifications and aortic tortuosity. Pacemaker leads are partially visualized. The gallbladder is surgically absent. The common duct is dilated at 17 mm. There is no clear cause for obstruction distally. A duodenal diverticulum adjacent to the ampulla measures 6.7 x 3.3 cm. Calcified hepatic granulomas are noted. The spleen, adrenal glands and pancreas are unremarkable. Scars are noted along both renal upper poles. There is a subcentimeter cyst at the right upper pole. The uterus is surgically absent. There is no small bowel obstruction. There are no pathologically enlarged lymph nodes. An infrarenal abdominal aortic aneurysm measures 3.4 x 3.3 cm. The right common iliac artery measures 1.7 cm. There are diffuse moderate to severe atherosclerotic calcifications. Bilateral common iliac stenosis is mild. External iliac stenosis appears multifocal moderate. The internal iliac arteries are diffusely severely diseased. There is no clear celiac stenosis. There is moderate stenosis along the proximal 2 cm of the superior mesenteric artery is may reflect uncalcified plaquing or chronic thrombosed dissection flap. The inferior mesenteric artery is patent. There appears to be at least moderate stenosis at the origins of both renal arteries. IMPRESSION: 1. Large hiatal hernia. Findings consistent with gastroesophageal reflux. 2. 3.4 similar infrarenal abdominal aortic aneurysm. No acute dissection. 3. Moderate stenosis versus chronic thrombosed dissection within the proximal 2 cm of the superior mesenteric artery. 4. Diffuse severe atherosclerotic changes result in moderate appearing bilateral renal artery stenosis and multifocal iliac stenosis. 5. Moderate to severe extrahepatic biliary dilatation status post cholecystectomy. Correlate for cholestasis to assess significance. 6. 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 7. An airspace opacity in the right upper lobe appears scarlike but is new since the prior study. Correlate for active pneumonia. 6-12 week follow-up is recommended if the diagnosis or stability is not already known. 8. Compression fractures are severe at T7 and mild more inferiorly in the thoracic spine. No acute spinal fractures are seen. Course & Med Decision Making Course & Med Decision Making Pertinent Labs and Imaging studies reviewed. (See chart for details) [] 4:45 PM: The patient's condition remains a stable. I discussed the findings with the patient and her family. I do not believe that her symptoms are related to vascular abnormality she certainly has significant vascular abnormalities on her CT of her abdomen, likely due to a lifelong history of smoking. I discussed importance of vascular surgery consultation with the patient, and the need for close PCP follow-up, precautions related to the use of pain medication as prescribed, and return precautions were discussed in detail for new or worsening symptoms. Dragon Disclaimer Dragon Disclaimer This electronic medical record was generated, in whole or in part, using a voice recognition dictation system. Departure Departure Impression: Primary Impression: Chronic low back pain Additional Impression: Abdominal pain Disposition: 01 HOME, SELF-CARE Condition: STABLE Referrals: NALLELY SALDANA MD (PCP) Patient Instructions: Atherosclerosis, Back Pain, Adult Additional Instructions: Applying a heating pad to the affected area may help improve your symptoms. The prescribed medications may cause drowsiness-use caution while taking. There was significant atherosclerosis noted of your blood vessels in her abdomen on the CT scan today. Follow-up with vascular surgery is recommended in a timely manner for further evaluation, as certain minor procedures might be indicated to prevent long-term complications from blockage of blood vessels. Please call [phone] to schedule follow-up appointment. Return to medical care for any new or worsening symptoms, development of inc reasing pain, vomiting, fever, abdominal pain that worsens or persists, or any other new, or concerning symptoms. Scripts Acetaminophen With Codeine (TYLENOL WITH CODEINE #3 TABLET) 1 Each Tablet 1 TAB PO PRN Q6HRS PRN for PAIN, #15 TAB Prov: GOOD CLINTON MD 10/15/19 Problem Qualifiers GOOD CLINTON MD Oct 15, 2019 12:36
--- NOTE | 2019-10-15 12:53 | RAD ---
Examination: PORTABLE CHEST 1V History: Chest pain Comparison/Correlation: 10/17/2017 frontal view of the chest Findings: Portable upright frontal view of the chest was obtained. Triple lead left-sided ICD is present. Sternal wires are present. Heart size within normal limits. Slight vascular congestion. Moderate-sized hiatal hernia is present. Interstitial thickening of the lung martinez again seen. Discoid atelectasis or possibly fluid within fissure noted at the upper to mid right lung field. Impression: Hiatal hernia. Slight pulmonary vascular congestion. Electronically signed by: Matthew Mann MD (10/15/2019 12:50 PM) [facility] [place] [id number]
[2019-10-15] MEDS ORDERED: MORPHINE SULFATE 4 MG/ML VIAL. IV ONE (13:00)
[2019-10-15 13:40] LABS: BASO # 0.1 x10^3/uL (0.0-0.2); BASO % 1 % (0-3); EOS # 0.1 x10^3/uL (0.0-0.7); EOS % 1 % (0-3); HEMATOCRIT 40.1 % (36.0-47.0); HEMOGLOBIN 13.6 g/dL (12.0-15.5); LYMPH # 1.4 x10^3/uL (1.0-4.8); LYMPH % 14 % (24-48); MEAN CORPUSCULAR HEMOGLOBIN 32 pg (25-35); MEAN CORPUSCULAR HGB CONC 34 g/dL (31-37); MEAN CORPUSCULAR VOLUME 93 fL (79-100); MONO # 0.8 x10^3/uL (0.0-1.1); MONO % 8 % (0-9); NEUT # 7.9 x10^3/uL (1.8-7.7); NEUT % 76 % (31-73); PLATELET COUNT 201 x10^3/uL (140-400); RED BLOOD COUNT 4.29 x10^6/uL (3.50-5.40); RED CELL DISTRIBUTION WIDTH 14.5 % (11.5-14.5); WHITE BLOOD COUNT 10.3 x10^3/uL (4.0-11.0)
[2019-10-15 13:49] LABS: CALCIUM 9.2 mg/dL (8.5-10.1); CREATININE 1.5 mg/dL (0.6-1.0); GFR 32.9; POTASSIUM 4.1 mmol/L (3.5-5.1)
[2019-10-15 13:55] LABS: ALBUMIN 3.4 g/dL (3.4-5.0); ALBUMIN/GLOBULIN RATIO 0.9 (1.0-1.7); TOTAL BILIRUBIN 0.6 mg/dL (0.2-1.0); TOTAL PROTEIN 7.4 g/dL (6.4-8.2)
[2019-10-15] MEDS ORDERED: CONTRAST GIVEN. MC PRN (14:30)
[2019-10-15] MEDS ORDERED: IOHEXOL 300 MG/ML 100ML VIAL. IV ONE (15:00)
[2019-10-15] MEDS ORDERED: IV NORMAL SALINE 1000ML BAG 1,000 ML IV ONE (15:00)
--- NOTE | 2019-10-15 15:40 | RAD ---
EXAM: 1. CT ABDOMEN/PELVIS WITH CONTRAST. 2. CT THORACIC AND LUMBAR SPINE WITHOUT CONTRAST. HISTORY: Abdominal pain. Back pain. TECHNIQUE: Computed tomography of the abdomen and pelvis was performed after the intravenous administration of iodinated contrast. CT of the thoracic and lumbar spine was performed without intravenous contrast. COMPARISON: None. FINDINGS: There are vertebroplasty changes at a severe compression deformity at T7. There is a mild loss of height from T8 through T11. No open fracture lines are seen. Osteopenia is moderate to severe. There is no significant retropulsion. There is only mild exaggeration of the thoracic kyphosis. A minimal dextrocurvature is within normal limits. Left neural foraminal stenosis is moderate to severe from T7 through T9 on the left and moderate from T5 through T7 bilaterally there is no clear central canal stenosis. There are no lumbar fractures. Degenerative disc disease is mild from L2 through L4. Alignment is maintained. Posterior disc bulges are moderate from L1 through L4 and small more inferiorly. Facet and ligamentum flavum hypertrophy is moderate to severe at L3-4 resulting in severe central canal stenosis. Central canal stenosis is mild at L2-3 and L4-5. Neural foraminal stenosis is moderate on the right at L3-4 and mild elsewhere from L2 through L4. Changes of median sternotomy, coronary artery bypass grafting and aortic valve replacement are noted. There is a large hiatal hernia. Debris within the thoracic esophagus is consistent with reflux. 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 There are diffuse atherosclerotic calcifications and aortic tortuosity. Pacemaker leads are partially visualized. The gallbladder is surgically absent. The common duct is dilated at 17 mm. There is no clear cause for obstruction distally. A duodenal diverticulum adjacent to the ampulla measures 6.7 x 3.3 cm. Calcified hepatic granulomas are noted. The spleen, adrenal glands and pancreas are unremarkable. Scars are noted along both renal upper poles. There is a subcentimeter cyst at the right upper pole. The uterus is surgically absent. There is no small bowel obstruction. There are no pathologically enlarged lymph nodes. An infrarenal abdominal aortic aneurysm measures 3.4 x 3.3 cm. The right common iliac artery measures 1.7 cm. There are diffuse moderate to severe atherosclerotic calcifications. Bilateral common iliac stenosis is mild. External iliac stenosis appears multifocal moderate. The internal iliac arteries are diffusely severely diseased. There is no clear celiac stenosis. There is moderate stenosis along the proximal 2 cm of the superior mesenteric artery is may reflect uncalcified plaquing or chronic thrombosed dissection flap. The inferior mesenteric artery is patent. There appears to be at least moderate stenosis at the origins of both renal arteries. IMPRESSION: 1. Large hiatal hernia. Findings consistent with gastroesophageal reflux. 2. 3.4 similar infrarenal abdominal aortic aneurysm. No acute dissection. 3. Moderate stenosis versus chronic thrombosed dissection within the proximal 2 cm of the superior mesenteric artery. 4. Diffuse severe atherosclerotic changes result in moderate appearing bilateral renal artery stenosis and multifocal iliac stenosis. 5. Moderate to severe extrahepatic biliary dilatation status post cholecystectomy. Correlate for cholestasis to assess significance. 6. 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 7. An airspace opacity in the right upper lobe appears scarlike but is new since the prior study. Correlate for active pneumonia. 6-12 week follow-up is recommended if the diagnosis or stability is not already known. 8. Compression fractures are severe at T7 and mild more inferiorly in the thoracic spine. No acute spinal fractures are seen. *One or more of the following individualized dose reduction techniques were utilized for this examination: 1. Automated exposure control. 2. Adjustment of the mA and/or kV according to patient size. 3. Use of iterative reconstruction technique. Electronically signed by: Jerson Douglas MD (10/15/2019 3:37 PM) [facility]
[2019-10-15] MEDS ORDERED: fentaNYL PF VIAL 100 MCG/2 ML VIAL IVP ONE ×2 (15:45)
[2019-10-15 16:08] LABS: BILIRUBIN,URINE NEGATIVE (NEG); CLARITY,URINE CLEAR; COLOR,URINE YELLOW; NITRITE,URINE NEGATIVE (NEG); PH,URINE 5.5; PROTEIN,URINE >=300 mg/dL (NEG-TRACE); UROBILINOGEN,URINE 0.2 mg/dL (0.2 mg/dL)
[2019-10-15 16:37] LABS: BACTERIA,URINE FEW /HPF (0-FEW); RBC,URINE 0 /HPF (0-2); SQUAMOUS EPITHELIAL CELL,UR OCC /LPF; WBC,URINE OCC /HPF (0-4)
[2019-10-15 16:38] LABS: AMORPHOUS SEDIMENT,UR PRESENT /HPF
[2019-10-15 16:41] VITALS: BP 189/86
[2019-10-15] MEDS ORDERED: ACET-704 PO (16:50)
--- NOTE | 2019-10-16 07:30 | EKG ---
[facility] [address] [place] [address] Test Date: 2019-10-15 Test Time: 12:33:32 Pat Name: MITCH STEWART Department: Room: Gender: F Industrial Hygienist: : [id number] Requested By: GOOD CLINTON Order Number: [id number] Reading MD: Christian Soni Measurements Intervals [place] Rate: 80 P: RI: QRS: 121 QRSD: 30 T: -83 QT: 328 QTc: 381 Interpretive Statements ATRIAL SENSED VENTRICULAR PACED RHYTHM Electronically Signed On 10-16-2019 14:02:57 SCHEME TECHNICIAN by Christian Soni
== END 2019-10-15 17:19 | disposition home or self-care (01) ==
LOC: ER 11:41
DX: G89.29 Other chronic pain (principal); M54.5 Low back pain; R53.1 Weakness; K44.9 Diaphragmatic hernia without obstruction or gangrene; R10.9 Unspecified abdominal pain; E11.9 Type 2 diabetes mellitus without complications; I10 Essential (primary) hypertension; F17.210 Nicotine dependence, cigarettes, uncomplicated; Z86.2 Personal history of diseases of the blood and blood-forming organs and certain disorders involving the immune mechanism; Z90.89 Acquired absence of other organs; Z90.49 Acquired absence of other specified parts of digestive tract; Z95.1 Presence of aortocoronary bypass graft; Z95.0 Presence of cardiac pacemaker
CPT/HCPCS: 36415; 71045; 72128; 74177; 80053; 81001; 83690; 84484; 85025; 93005; 96374; 96375; 99285; J2270; J3010; J7030; P9612

== ENCOUNTER 2019-12-08 08:30 | Emergency (ER) | payer MEDICARE ==
[~2019-12-08 08:30] MED LIST changes: +ACET-704 PO; +AMOX1TAB10 PO; +ASPI-630 PO; +DOXY100T PO; +GUAI600T47 PO; +IPRA3AMP29 NEB; +LACT1CAP19 PO; +LEVO25TA55 PO; +LIDO700A21 TD; +ONDA4TAB12 PO; +POLY17PO28 PO; +PRED20TA PO; +SCOP1PAT11 TD; +[UNRECOGNIZED DRUG - CODE] IV
--- NOTE | 2019-12-08 08:46 | PHYS DOC ---
Past Medical History Past Medical History: Anemia, Arrhythmia, CAD, Diabetes-Type II, Hypertension, Lung Disease, P.U.D. Past Surgical History: Appendectomy, Cholecystectomy, Coronary Bypass Surgery, Pacemaker, Other Additional Past Surgical Histo: Right femoral bypass, pacer/defib,TOE AMPUTATION Alcohol Use: None Drug Use: None Adult General Chief Complaint Chief Complaint: BLOOD IN URINE [facility] Patient is an 84-year-old female who presents with complaint of hematuria that has been intermittent over the last couple of days. Patient's son indicates that they had called the urologist yesterday and the urologist had suggested that patient might have just pulled on the catheter. Patient's catheter had been readjusted and urine had cleared up. This morning when patient had woken up, patient's catheter filled with dark maroon colored urine. Patient denies any fever. She has no abdominal pain, nausea or vomiting.[] Review of Systems Review of Systems Constitutional: Denies fever or chills [] Respiratory: Denies cough or shortness of breath [] Cardiovascular: No additional information not addressed in HPI [] GI: Denies abdominal pain, nausea, vomiting or diarrhea [] : Positive gross hematuria [] Musculoskeletal: Complains of back pain [] Integument: Denies rash or skin lesions [] All other systems were reviewed and found to be within normal limits, except as documented in this note. Allergies Allergies Allergies Coded Allergies Type Severity Reaction Last Updated Verified No Known Drug Allergies 11/07/19 No Physical Exam Physical Exam Constitutional: Well developed, well nourished, no acute distress, non-toxic appearance. [] HENT: Normocephalic, atraumatic, bilateral external ears normal, oropharynx moist, no oral exudates, nose normal. [] Eyes: PERRLA, EOMI, conjunctiva normal, no discharge. [] Neck: Normal range of motion, no tenderness, supple, no stridor. [] Cardiovascular: Regular rate and rhythm[] Lungs & Thorax: Bilateral breath sounds clear to auscultation [] Abdomen: Bowel sounds normal, soft, no tenderness. [] Skin: Warm, dry, no erythema, no rash. [] Extremities: No tenderness, no cyanosis, no clubbing, ROM intact. [] Neurologic: Awake and alert, no focal deficits noted. [] Current Patient Data Vital Signs Vital Signs Date Time Temp Pulse Resp B/P (MAP) Pulse Ox O2 Delivery O2 Flow Rate FiO2 12/08/19 08:35 97.8 87 17 162/81 (108) 93 Room Air 97.8 Lab Values Laboratory Tests Test 12/08/19 08:40 12/08/19 08:55 Urine Collection Type Unknown Urine Color Red Urine Clarity Bloody Urine pH Urine Specific [place] Urine Protein mg/dL (NEG-TRACE) Urine Glucose (UA) mg/dL (NEG) Urine Ketones (Stick) mg/dL (NEG) Urine Blood (NEG) Urine Nitrite (NEG) Urine Bilirubin (NEG) Urine Urobilinogen Dipstick mg/dL (0.2 mg/dL) Urine Leukocyte Esterase (NEG) Urine RBC Tntc /HPF (0-2) Urine WBC 1-4 /HPF (0-4) Urine Bacteria Moderate /HPF (0-FEW) White Blood Count 6.3 x10^3/uL (4.0-11.0) Red Blood Count 3.69 x10^6/uL (3.50-5.40) Hemoglobin 11.4 g/dL (12.0-15.5) L Hematocrit 33.6 % (36.0-47.0) L Mean Corpuscular Volume 91 fL (79-100) Mean Corpuscular Hemoglobin 31 pg (25-35) Mean Corpuscular Hemoglobin Concent 34 g/dL (31-37) Red Cell Distribution Width 14.7 % (11.5-14.5) H Platelet Count 317 x10^3/uL (140-400) Neutrophils (%) (Auto) 53 % (31-73) Lymphocytes (%) (Auto) 34 % (24-48) Monocytes (%) (Auto) 11 % (0-9) H Eosinophils (%) (Auto) 2 % (0-3) Basophils (%) (Auto) 1 % (0-3) Neutrophils # (Auto) 3.3 x10^3/uL (1.8-7.7) Lymphocytes # (Auto) 2.1 x10^3/uL (1.0-4.8) Monocytes # (Auto) 0.7 x10^3/uL (0.0-1.1) Eosinophils # (Auto) 0.1 x10^3/uL (0.0-0.7) Basophils # (Auto) 0.1 x10^3/uL (0.0-0.2) Sodium Level 136 mmol/L (136-145) Potassium Level 4.3 mmol/L (3.5-5.1) Chloride Level 103 mmol/L (98-107) Carbon Dioxide Level 23 mmol/L (21-32) Anion Gap 10 (6-14) Blood Urea Nitrogen 31 mg/dL (7-20) H Creatinine 1.2 mg/dL (0.6-1.0) H Estimated GFR (Cockcroft-Gault) 42.6 BUN/Creatinine Ratio 26 (6-20) H Glucose Level 188 mg/dL (70-99) H Calcium Level 8.7 mg/dL (8.5-10.1) Total Bilirubin 0.2 mg/dL (0.2-1.0) Aspartate Amino Transferase (AST) 15 U/L (15-37) Alanine Aminotransferase (ALT) 10 U/L (14-59) L Alkaline Phosphatase 98 U/L (46-116) Total Protein 6.5 g/dL (6.4-8.2) Albumin 2.7 g/dL (3.4-5.0) L Albumin/Globulin Ratio 0.7 (1.0-1.7) L Laboratory Tests 12/08/19 08:55 Laboratory Tests 12/08/19 08:55 EKG EKG [] Radiology/Procedures Radiology/Procedures [] Course & Med Decision Making Course & Med Decision Making Pertinent Labs and Imaging studies reviewed. (See chart for details) [] Dragon Disclaimer Dragon Disclaimer This electronic medical record was generated, in whole or in part, using a voice recognition dictation system. Departure Departure Impression: Primary Impression: Gross hematuria Additional Impression: Urinary tract infection Disposition: HOME, SELF-CARE Condition: STABLE Referrals: NALLELY SALDANA MD (PCP) Patient Instructions: Hematuria, Adult, Urinary Tract Infection Scripts Nitrofurantoin Monohyd/M-Cryst (MACROBID 100 MG CAPSULE) 100 Mg Capsule 1 CAP PO BID for 7 Days, #14 CAP 0 Refills Prov: OLINDA VALDIVIA Jr. DO 12/08/19 Problem Qualifiers Additional Impression: Urinary tract infection Urinary tract infection type: site unspecified Hematuria presence: with hematuria Qualified Codes: N39.0 - Urinary tract infection, site not specified; R31.9 - Hematuria, unspecified OLINDA VALDIVIA Jr. DO Dec 08, 2019 08:46
[2019-12-08 09:06] LABS: BASO # 0.1 x10^3/uL (0.0-0.2); BASO % 1 % (0-3); EOS # 0.1 x10^3/uL (0.0-0.7); EOS % 2 % (0-3); HEMATOCRIT 33.6 % (36.0-47.0); HEMOGLOBIN 11.4 g/dL (12.0-15.5); LYMPH # 2.1 x10^3/uL (1.0-4.8); LYMPH % 34 % (24-48); MEAN CORPUSCULAR HEMOGLOBIN 31 pg (25-35); MEAN CORPUSCULAR HGB CONC 34 g/dL (31-37); MEAN CORPUSCULAR VOLUME 91 fL (79-100); MONO # 0.7 x10^3/uL (0.0-1.1); MONO % 11 % (0-9); NEUT # 3.3 x10^3/uL (1.8-7.7); NEUT % 53 % (31-73); PLATELET COUNT 317 x10^3/uL (140-400); RED BLOOD COUNT 3.69 x10^6/uL (3.50-5.40); RED CELL DISTRIBUTION WIDTH 14.7 % (11.5-14.5); WHITE BLOOD COUNT 6.3 x10^3/uL (4.0-11.0)
[2019-12-08 09:12] LABS: CLARITY,URINE BLOODY; COLOR,URINE RED; RBC,URINE TNTC /HPF (0-2)
[2019-12-08 09:13] LABS: BACTERIA,URINE MODERATE /HPF (0-FEW)
[2019-12-08 09:17] LABS: CALCIUM 8.7 mg/dL (8.5-10.1); CREATININE 1.2 mg/dL (0.6-1.0); GFR 42.6; POTASSIUM 4.3 mmol/L (3.5-5.1)
[2019-12-08 09:26] LABS: ALBUMIN 2.7 g/dL (3.4-5.0); ALBUMIN/GLOBULIN RATIO 0.7 (1.0-1.7); TOTAL BILIRUBIN 0.2 mg/dL (0.2-1.0); TOTAL PROTEIN 6.5 g/dL (6.4-8.2)
[2019-12-08 09:38] VITALS: BP 178/81
[2019-12-08] MEDS ORDERED: NITROFURANTOIN MONOHYD/M-CRYST 100 MG CAPSULE. PO ONE (09:45)
[2019-12-08] MEDS ORDERED: NITR100C62 PO (09:51)
== END 2019-12-08 10:10 | disposition home or self-care (01) ==
LOC: ER 08:30
DX: N39.0 Urinary tract infection, site not specified (principal); R31.0 Gross hematuria; E11.9 Type 2 diabetes mellitus without complications; I10 Essential (primary) hypertension; I25.10 Atherosclerotic heart disease of native coronary artery without angina pectoris; Z90.89 Acquired absence of other organs; Z90.49 Acquired absence of other specified parts of digestive tract; Z95.810 Presence of automatic (implantable) cardiac defibrillator; Z95.1 Presence of aortocoronary bypass graft
CPT/HCPCS: 36415; 80053; 81001; 85025; 87086; 87186; 99284

== ENCOUNTER 2020-05-16 11:58 | Inpatient (IN) | payer MEDICARE ==
[~2020-05-16] VITALS: Ht 167.6 cm; Wt 68.0 kg
[~2020-05-16 11:58] MED LIST changes: +ACET1TAB33 PO; +ACET325T9 PO; +ALBU2.5V14 NEB; +CEFD300C PO; +DOCU-153 PO; -ENAL20TA PO; +ENAL20TA10 PO; +GUAI-305 PO; +GUAI100L12 PO; +INSU100I11 SQ; +INSU100V6 SQ; +NITR100C62 PO; +POLY2500 PO; -ROPI1TAB2 PO; +ROPI1TAB4 PO
[2020-05-16] MEDS ORDERED: fentaNYL PF VIAL 100 MCG/2 ML VIAL IV ONE (12:30)
[2020-05-16 12:38] LABS: BASO % 1 % (0-3); EOS # 0.3 x10^3/uL (0.0-0.7); EOS % 4 % (0-3); HEMATOCRIT 35.4 % (36.0-47.0); HEMOGLOBIN 11.8 g/dL (12.0-15.5); LYMPH # 1.7 x10^3/uL (1.0-4.8); LYMPH % 25 % (24-48); MEAN CORPUSCULAR HEMOGLOBIN 28 pg (25-35); MEAN CORPUSCULAR HGB CONC 33 g/dL (31-37); MEAN CORPUSCULAR VOLUME 84 fL (79-100); MONO # 0.5 x10^3/uL (0.0-1.1); MONO % 7 % (0-9); NEUT # 4.2 x10^3/uL (1.8-7.7); NEUT % 63 % (31-73); PLATELET COUNT 246 x10^3/uL (140-400); RED BLOOD COUNT 4.24 x10^6/uL (3.50-5.40); RED CELL DISTRIBUTION WIDTH 18.4 % (11.5-14.5); WHITE BLOOD COUNT 6.7 x10^3/uL (4.0-11.0)
[2020-05-16 12:40] LABS: BILIRUBIN,URINE NEGATIVE (NEG); CLARITY,URINE CLEAR; COLOR,URINE YELLOW; NITRITE,URINE NEGATIVE (NEG); PH,URINE 6.5 (<5.0-8.0); PROTEIN,URINE >=300 mg/dL (NEG-TRACE); UROBILINOGEN,URINE 0.2 mg/dL (0.2 mg/dL)
--- NOTE | 2020-05-16 12:41 | PHYS DOC ---
Past Medical History Past Medical History: Anemia, Arrhythmia, CAD, CVA, Diabetes-Type II, Hyp ertension, Lung Disease, P.U.D. Past Surgical History: Appendectomy, Cholecystectomy, Coronary Bypass Surgery, Pacemaker, Other Additional Past Surgical Histo: Right femoral bypass, pacer/defib,TOE AMPUTATION Smoking Status: Former Smoker Alcohol Use: None Drug Use: None General Adult EDM: Chief Complaint: BACK PAIN OR INJURY HPI: HPI: Patient is a 85 year old female who presents to the emergency department with complaints of low back pain for the last 2 to 3 days that increases with movement. Patient denies any recent injury or fall. She denies any increased urinary frequency, hematuria, dysuria, or difficulty voiding. She denies any fever, cough, chest pain, palpitations, abdominal pain, nausea, vomiting, diarrhea, or bloody stools. She denies any numbness, or tingling of her extremities. The patient states that the pain does not radiate to her legs or abdomen. She denies any saddle anesthesia. Patient states that the pain is worse with movement, she rates the pain a 10 out of 10 on the pain scale, she has tried taking Tylenol and ibuprofen for relief of her pain with no benefit. Limited past medical history and surgical history due to patient being a poor historian. Review of Systems: Review of Systems: Constitutional: Denies fever or chills. [] Eyes: Denies complaints HENT: Denies nasal congestion or sore throat. [] Respiratory: Denies cough or shortness of breath. [] Cardiovascular: Denies chest pain or edema. [] GI: Denies abdominal pain, nausea, vomiting, bloody stools or diarrhea. [] : Denies dysuria. [] Musculoskeletal: See HPI Integument: Denies rash. [] Neurologic: Denies headache, focal weakness or sensory changes. [] Endocrine: Denies polyuria or polydipsia. [] Lymphatic: Denies swollen glands. [] Psychiatric: Denies depression or anxiety. [] Heart Score: Risk Factors: Risk Factors: DM, Current or recent (<one month) smoker, HTN, HLP, family history of CAD, obesity. Risk Scores: Score 0 - 3: 2.5% MACE over next 6 weeks - Discharge Home Score 4 - 6: 20.3% MACE over next 6 weeks - Admit for Clinical Observation Score 7 - 10: 72.7% MACE over next 6 weeks - Early Invasive Strategies Allergies: Allergies: Allergies Coded Allergies Type Severity Reaction Last Updated Verified No Known Drug Allergies 11/07/19 No Physical Exam: PE: Constitutional: Well developed, well nourished, no acute distress, non-toxic appearance. [] HENT: Normocephalic, atraumatic, bilateral external ears normal, nose normal. [] Eyes: PERRLA, EOMI, conjunctiva normal, no discharge. [] Neck: Normal range of motion, no stridor. [] Cardiovascular: Heart rate regular rhythm, no murmur [] Lungs & Thorax: Bilateral breath sounds clear to auscultation, Respirations even and unlabored, no retractions, no respiratory distress [] Abdomen: Bowel sounds normal, soft, no tenderness, no masses, no pulsatile masses. [] Skin: Warm, dry, no erythema, no rash. [] Back: Bilateral lower T-spine and L-spine bony TTP with bilateral paraspinal te nderness to palpation of the same areas Extremities: Noc yanosis, ROM intact, no edema. [] Neurologic: Alert and oriented X 3, no focal deficits noted. [] Psychologic: Affect normal, judgement normal, mood normal. [] EKG: EKG: [] Radiology/Procedures: Radiology/Procedures: PROCEDURE: CT LUMBAR SPINE WO CONTRAST CT scan of the thoracic and lumbar spine without contrast 05/16/2020 CLINICAL HISTORY: Mid and low back pain for last 2-3 days. TECHNIQUE: Unenhanced, contiguous, 0.625 mm axial sections were obtained through the thoracic and lumbar spine. 3 mm reconstructed sagittal, axial and coronal images were obtained. One or more of the following individualized dose reduction techniques were utilized for this study: 1. Automated exposure control. 2. Adjustment of the mA and/or kV according to patient size. 3. Use of iterative reconstruction technique. FINDINGS: Comparison is made to radiographs of the thoracic and lumbar spine dated 01/02/2020. Sagittal and coronal reconstructed images demonstrate minimal S-shaped curvature of the thoracolumbar spine. The patient is post kyphoplasty type procedure for compression fractures involving the T7 and T8 vertebral bodies. Degenerative changes are seen involving the thoracic and lumbar spine and the lumbar disc spaces consisting of vertebral endplate sclerosis and minimal to mild anterior vertebral body osteophyte formation. Extensive atherosclerotic calcification of the thoracic and abdominal aorta and their branches is noted. There is a large hiatal hernia. The Patient is post mitral valve replacement. A Pacemaker is noted in place. An old appearing compression fracture of the T10 vertebral body is noted. No retropulsion of bone fragments into the central spinal canal seen. No acute compression fracture of the thoracic or lumbar vertebrae is noted. Degenerative changes are seen involving the facet joints throughout the mid and lower lumbar spine. The Changes of degenerative disc disease are seen involving lumbar disc spaces. These consist of mild to moderate generalized disc bulges and degenerative changes involving the facet joints. These Findings result in mild to moderate central spinal canal stenosis at L2-3 and L4-5 and moderate to severe central spinal canal stenosis at L3-4. Moderate right neural foraminal stenosis is seen at L3-4. IMPRESSION: No acute fracture or subluxation of the thoracic or lumbar vertebrae is seen. Electronically signed by: Elia Jung MD (05/16/2020 1:46 PM) [id number] Course & Med Decision Making: Course & Med Decision Making Pertinent Labs and Imaging studies reviewed. (See chart for details) Patient is a 85-year-old female who presents to the emergency department with complaints of bilateral low back pain for the last 2 to 3 days without injury. She denied any urinary symptoms. Work-up includes CBC, CMP, UA, and CT scans of the thoracic and lumbar regions. CBC reveals a hemoglobin of 11.8 and hematocrit of 35.4, this is typical for patient per lab history; CMP reveals a sodium 134, BUN of 32, and creatinine of 1.7 otherwise unremarkable patient's last creatinine was 1.2 this is concerning for TRENT; urinalysis revealed large amount of leuk esterase too many to count white blood cells and moderate amount of squamous cells and bacteria. The patient was given 1 g of IV Rocephin and 500 mils of NS in the emergency department. [id number] with Dr. Madsen who is the admitting physician, and care was assumed following discussion of patient. He will admit patient for urinary tract infection likely pyelonephritis, acute kidney injury, and dehydration. Will order NS at 100-hour and diabetic diet for patient. Advise Dr. Bardales that the CT lumbar and thoracic reports have not been read yet. Patient's vital signs stable. Patient remains afebrile, appears nontoxic, respirations even and unlabored. Patient will be admitted to the med/surg floor. Patient's case and plan of care also discussed with Dr. Pyle [] Renetta Disclaimer: Renetta Disclaimer: This electronic medical record was generated, in whole or in part, using a voice recognition dictation system. Departure Departure Impression: Primary Impression: TRENT (acute kidney injury) Additional Impression: Urinary tract infection Qualified Codes: N39.0 - Urinary tract infection, site not specified Disposition: ADMITTED INPATIENT Admitting Physician: SHRUTHI (Riffel) Referrals: NALLELY SALDANA MD (PCP) Justicifation of Admission Dx: Justifications for Admission: Justification of Admission Dx: Yes STEPHIE [employer]ISON [employer] May 16, 2020 12:41
[2020-05-16 12:47] LABS: HYALINE CASTS, URINE FEW /HPF; SQUAMOUS EPITHELIAL CELL,UR MOD /LPF
[2020-05-16 12:49] LABS: BACTERIA,URINE MODERATE /HPF (0-FEW); RBC,URINE 0 /HPF (0-2); WBC,URINE TNTC /HPF (0-4)
[2020-05-16 12:58] LABS: CALCIUM 8.6 mg/dL (8.5-10.1); CREATININE 1.7 mg/dL (0.6-1.0); GFR 28.4; POTASSIUM 4.8 mmol/L (3.5-5.1)
[2020-05-16 13:03] LABS: ALBUMIN 3.3 g/dL (3.4-5.0); ALBUMIN/GLOBULIN RATIO 0.8 (1.0-1.7); TOTAL BILIRUBIN 0.2 mg/dL (0.2-1.0); TOTAL PROTEIN 7.4 g/dL (6.4-8.2)
[2020-05-16] MEDS ORDERED: cefTRIAXone IV Push 1 GM VIAL. IVP ONE (13:30)
[2020-05-16] MEDS ORDERED: IV NORMAL SALINE 1000ML BAG 1,000 ML IV ONE (13:30)
--- NOTE | 2020-05-16 13:48 | PDOC1 ---
History and Physical Date of Admission Date of Admission DATE: 05/16/20 TIME: 13:47 Identification/Chief Complaint Chief Complaint Back pain Source Source: Patient History of Present Illness History of Present Illness Ms Sierra is an 85 yo F w/ PMHx ex-smoker, anemia, arrhythmia s/p PPM, CAD, CVA, DM2, HTN, PUD, COPD who presents to the emergency department with complaints of low back pain for the last 2 to 3 days. No injuries, but movement worsens it as well as pressure. Rest relieves it. She does have frequent UTIs, and has some incontinence issues, but no h/o fecal incontinence and she is aware when she has urinary incontinence. She denies any fever, cough, chest pain, palpitations, abdominal pain, nausea, vomiting, diarrhea, or bloody stools. She denies any numbness, or tingling of her extremities. Her pain is 10 out of 10 on the pain scale, she has tried taking Tylenol and ibuprofen for relief of her pain with no benefit. Her back pain is so severe she is unable to walk due to this. CT scans of the thoracic and lumbar regions show no acute pathology. WBC 6.7, Hb 11.8, Sodium 134, BUN of 32, and creatinine of 1.7, UA with large amount of leuk esterase too many to count white blood cells The patient was given 1 g of IV Rocephin and 500 mils of NS in the emergency department. Admitted for further treatment. Past Medical History Cardiovascular: CAD, CHF, HTN, Hyperlipidemia Pulmonary: COPD CENTRAL NERVOUS SYSTEM: Other GI: GI bleed Heme/Onc: Cancer Hepatobiliary: No pertinent hx Psych: Anxiety Musculoskeletal: Osteoarthritis Rheumatologic: No pertinent hx Infectious disease: No pertinent hx Renal/: Chronic renal insuff, UTI Endocrine: Diabetes Past Surgical History Past Surgical History: Pacemaker, Appendectomy, Cholecystectomy, CABG, Cataract Removal, Hernia Repair, Hysterectomy, Colectomy, Other Family History Family History: Diabetes, Hypertension Social History Smoke: No ALCOHOL: none Drugs: None Current Problem List Problem List Problems Medical Problems: (1) Urinary tract infection Status: Acute Current Medications Current Medications Current Medications Fentanyl Citrate (Fentanyl 2ml Vial) 50 mcg 1X ONCE IV Last administered on 05/16/20at 12:56; Start 05/16/20 at 12:30; Stop 05/16/20 at 12:31; Status DC Ceftriaxone Sodium (Rocephin) 1 gm 1X ONCE IVP ; Start 05/16/20 at 13:30; Stop 05/16/20 at 13:31; Status DC Sodium Chloride 1,000 ml @ 1,000 mls/hr 1X ONCE IV ; Start 05/16/20 at 13:30; Stop 05/16/20 at 14:29 Active Scripts Active Cefdinir 300 Mg Capsule 1 Cap PO BID Dok (Docusate Sodium) 100 Mg Capsule 100 Mg PO PRN BID PRN 14 Days Guaifenesin 100 Mg/5 Ml Liquid 200 Mg PO PRN Q4HRS PRN 10 Days Tylenol (Acetaminophen) 325 Mg Tablet 650 Mg PO PRN Q4HRS PRN 14 Days Synthroid (Levothyroxine Sodium) 25 Mcg Tablet 25 Mcg PO DAILY06 30 Days Reported Polyethylene Glycol 3350 2,500 Gm Powder 17 Gm PO DAILY PRN Culturelle (Lactobacillus Rhamnosus Gg) 1 Each Cap.sprink 1 Cap PO DAILY 30 Days Albuterol Sulfate Conc Neb Soln (Albuterol Sulfate) 2.5 Mg/0.5 Ml Vial.neb 1 Vial NEB QID Ropinirole Hcl 1 Mg Tablet 1 Mg PO HS Carvedilol 25 Mg Tablet 0.5 Tab PO BID Plavix (Clopidogrel Bisulfate) 75 Mg Tablet 1 Tab PO DAILY Aspir 81 (Aspirin) 81 Mg Tablet. 1 Tab PO DAILY Pantoprazole Sodium (Pantoprazole Sodium) 40 Mg Tablet. 40 Mg PO DAILY Amlodipine Besylate 10 Mg Tablet 10 Mg PO HS Allergies Allergies: Coded Allergies: No Known Drug Allergies (Unverified , 11/07/19) ROS General: YES: Chills, Fatigue, Malaise; No: Night Sweats, Appetite, Other PSYCHOLOGICAL ROS: No: Anxiety, Behavioral Disorder, Concentration difficultie, Decreased libido, Depression, Disorientation, Hallucinations, Hostility, Irritablity, Memory difficulties, Mood Swings, Obsessive thoughts, Physical abuse, Sexual abuse, Sleep disturbances, Suicidal ideation, Other Eyes: No Blurry vision, No Decreased vision, No Double vision, No Dry eyes, No Excessive tearing, No Eye Pain, No Itchy Eyes, No Loss of vision, No Photophobia, No Scotomata, No Uses contacts, No Uses glasses, No Other HEENT: No: Heacaches, Visual Changes, Hearing change, Nasal congestion, Nasal discharge, Oral lesions, Sinus pain, Sore Throat, Epistaxis, Sneezing, Snoring, Tinnitus, Vertigo, Vocal changes, Other ALLERGY AND IMMUNOLOGY: No: Hives, Insect Bite Sensitivity, Itchy/Watery Eyes, Nasal Congestion, Post Nasal Drip, Seasonal Allergies, Other Hematological and Lymphatic: No: Bleeding Problems, Blood Clots, Blood Transfusions, Brusing, Night Sweats, Pallor, Swollen Lymph Nodes, Other ENDOCRINE: No: Breast Changes, Galactorrhea, Hair Pattern Changes, Hot Flashes, Malaise/lethargy, Mood Swings, Palpitations, Polydipsia/polyuria, Skin Changes, Temperature Intolerance, Unexpected Weight Changes, Other Breast: No New/Changing Breast Lumps, No Nipple changes, No Nipple discharge, No Other Respiratory: No: Cough, Hemoptysis, Orthopnea, Pleuritic Pain, Shortness of breath, SOB with excertion, Sputum Changes, Stridor, Tachypnea, Wheezing, Other Gastrointestinal: No Nausea, No Vomiting, No Abdominal Pain, No Diarrhea, No Constipation, No Melena, No Hematochezia, No Other Genitourinary: YES Dysuria, YES Incontinence; No Frequency, No Hematuria, No Retention, No Discharge, No Urgency, No Pain, No Flank Pain, No Other, No , No , No , No , No , No , No Musculoskeletal: Yes Muscle Pain, Yes Muscular Weakness; No Gait Disturbance, No Joint Pain, No Joint Stiffness, No Joint Swelling, No Pain In:, No Swelling In:, No Other Neurological: No Behavorial Changes, No Bowel/Bladder ControlChng, No Confusion, No Dizziness, No Gait Disturbance, No Headaches, No Impaired Coord/balance, No Memory Loss, No Numbness/Tingling, No Seizures, No Speech Problems, No Tremors, No Visual Changes, No Weakness, No Other Skin: No Dry Skin, No Eczema, No Hair Changes, No Lumps, No Mole Changes, No Mottling, No Nail Changes, No Pruritus, No Rash, No Skin Lesion Changes, No Other, No Acne Physical Exam General: Alert, Cooperative, moderate distress HEENT: Atraumatic, PERRLA, EOMI, Mucous membr. moist/pink Lungs: Clear to auscultation, Normal air movement Heart: S1S2, RRR, no thrills, no rubs Abdomen: Normal bowel sounds, Soft, No hepatosplenomegaly, No masses, Other (left CVA tenderness) Rectal Exam: not examined Extremities: No clubbing, No cyanosis, No edema, Normal pulses, No tenderness/swelling Skin: No rashes, No breakdown, No significant lesion Neuro: Normal speech, Strength at 5/5 X4 ext, Normal tone, Sensation intact, Cranial nerves 3-12 NL, Reflexes 2+, Other (unable to stand) Vitals Vitals Vital Signs Date Time Temp Pulse Resp B/P (MAP) Pulse Ox O2 Delivery O2 Flow Rate FiO2 05/16/20 12:56 16 99 Room Air 05/16/20 12:27 97.6 81 138/86 (103) 97.6 Labs Labs Laboratory Tests Test 05/16/20 12:25 White Blood Count 6.7 x10^3/uL (4.0-11.0) Red Blood Count 4.24 x10^6/uL (3.50-5.40) Hemoglobin 11.8 g/dL (12.0-15.5) Hematocrit 35.4 % (36.0-47.0) Mean Corpuscular Volume 84 fL (79-100) Mean Corpuscular Hemoglobin 28 pg (25-35) Mean Corpuscular Hemoglobin Concent 33 g/dL (31-37) Red Cell Distribution Width 18.4 % (11.5-14.5) Platelet Count 246 x10^3/uL (140-400) Neutrophils (%) (Auto) 63 % (31-73) Lymphocytes (%) (Auto) 25 % (24-48) Monocytes (%) (Auto) 7 % (0-9) Eosinophils (%) (Auto) 4 % (0-3) Basophils (%) (Auto) 1 % (0-3) Neutrophils # (Auto) 4.2 x10^3/uL (1.8-7.7) Lymphocytes # (Auto) 1.7 x10^3/uL (1.0-4.8) Monocytes # (Auto) 0.5 x10^3/uL (0.0-1.1) Eosinophils # (Auto) 0.3 x10^3/uL (0.0-0.7) Basophils # (Auto) 0.0 x10^3/uL (0.0-0.2) Urine Collection Type U cath Urine Color Yellow Urine Clarity Clear Urine pH 6.5 (<5.0-8.0) Urine Specific [place]ice 1.010 (1.000-1.030) Urine Protein >=300 mg/dL (NEG-TRACE) Urine Glucose (UA) Negative mg/dL (NEG) Urine Ketones (Stick) Negative mg/dL (NEG) Urine Blood Trace (NEG) Urine Nitrite Negative (NEG) Urine Bilirubin Negative (NEG) Urine Urobilinogen Dipstick 0.2 mg/dL (0.2 mg/dL) Urine Leukocyte Esterase Large (NEG) Urine RBC 0 /HPF (0-2) Urine WBC Tntc /HPF (0-4) Urine Squamous Epithelial Cells Mod /LPF Urine Bacteria Moderate /HPF (0-FEW) Urine Hyaline Casts Few /HPF Sodium Level 134 mmol/L (136-145) Potassium Level 4.8 mmol/L (3.5-5.1) Chloride Level 101 mmol/L (98-107) Carbon Dioxide Level 21 mmol/L (21-32) Anion Gap 12 (6-14) Blood Urea Nitrogen 32 mg/dL (7-20) Creatinine 1.7 mg/dL (0.6-1.0) Estimated GFR (Cockcroft-Gault) 28.4 BUN/Creatinine Ratio 19 (6-20) Glucose Level 130 mg/dL (70-99) Calcium Level 8.6 mg/dL (8.5-10.1) Total Bilirubin 0.2 mg/dL (0.2-1.0) Aspartate Amino Transf (AST/SGOT) 18 U/L (15-37) Alanine Aminotransferase (ALT/SGPT) 9 U/L (14-59) Alkaline Phosphatase 99 U/L (46-116) Total Protein 7.4 g/dL (6.4-8.2) Albumin 3.3 g/dL (3.4-5.0) Albumin/Globulin Ratio 0.8 (1.0-1.7) Laboratory Tests Test 05/16/20 12:25 White Blood Count 6.7 x10^3/uL (4.0-11.0) Red Blood Count 4.24 x10^6/uL (3.50-5.40) Hemoglobin 11.8 g/dL (12.0-15.5) Hematocrit 35.4 % (36.0-47.0) Mean Corpuscular Volume 84 fL (79-100) Mean Corpuscular Hemoglobin 28 pg (25-35) Mean Corpuscular Hemoglobin Concent 33 g/dL (31-37) Red Cell Distribution Width 18.4 % (11.5-14.5) Platelet Count 246 x10^3/uL (140-400) Neutrophils (%) (Auto) 63 % (31-73) Lymphocytes (%) (Auto) 25 % (24-48) Monocytes (%) (Auto) 7 % (0-9) Eosinophils (%) (Auto) 4 % (0-3) Basophils (%) (Auto) 1 % (0-3) Neutrophils # (Auto) 4.2 x10^3/uL (1.8-7.7) Lymphocytes # (Auto) 1.7 x10^3/uL (1.0-4.8) Monocytes # (Auto) 0.5 x10^3/uL (0.0-1.1) Eosinophils # (Auto) 0.3 x10^3/uL (0.0-0.7) Basophils # (Auto) 0.0 x10^3/uL (0.0-0.2) Urine Collection Type U cath Urine Color Yellow Urine Clarity Clear Urine pH 6.5 (<5.0-8.0) Urine Specific [place] 1.010 (1.000-1.030) Urine Protein >=300 mg/dL (NEG-TRACE) Urine Glucose (UA) Negative mg/dL (NEG) Urine Ketones (Stick) Negative mg/dL (NEG) Urine Blood Trace (NEG) Urine Nitrite Negative (NEG) Urine Bilirubin Negative (NEG) Urine Urobilinogen Dipstick 0.2 mg/dL (0.2 mg/dL) Urine Leukocyte Esterase Large (NEG) Urine RBC 0 /HPF (0-2) Urine WBC Tntc /HPF (0-4) Urine Squamous Epithelial Cells Mod /LPF Urine Bacteria Moderate /HPF (0-FEW) Urine Hyaline Casts Few /HPF Sodium Level 134 mmol/L (136-145) Potassium Level 4.8 mmol/L (3.5-5.1) Chloride Level 101 mmol/L (98-107) Carbon Dioxide Level 21 mmol/L (21-32) Anion Gap 12 (6-14) Blood Urea Nitrogen 32 mg/dL (7-20) Creatinine 1.7 mg/dL (0.6-1.0) Estimated GFR (Cockcroft-Gault) 28.4 BUN/Creatinine Ratio 19 (6-20) Glucose Level 130 mg/dL (70-99) Calcium Level 8.6 mg/dL (8.5-10.1) Total Bilirubin 0.2 mg/dL (0.2-1.0) Aspartate Amino Transf (AST/SGOT) 18 U/L (15-37) Alanine Aminotransferase (ALT/SGPT) 9 U/L (14-59) Alkaline Phosphatase 99 U/L (46-116) Total Protein 7.4 g/dL (6.4-8.2) Albumin 3.3 g/dL (3.4-5.0) Albumin/Globulin Ratio 0.8 (1.0-1.7) Images Images CT scan of the thoracic and lumbar spine without contrast 05/16/2020 Sagittal and coronal reconstructed images demonstrate minimal S-shaped curvature of the thoracolumbar spine. The patient is post kyphoplasty type procedure for compression fractures involving the T7 and T8 vertebral bodies. Degenerative changes are seen involving the thoracic and lumbar spine and the lumbar disc spaces consisting of vertebral endplate sclerosis and minimal to mild anterior vertebral body osteophyte formation. Extensive atherosclerotic calcification of the thoracic and abdominal aorta and their branches is noted. There is a large hiatal hernia. The Patient is post mitral valve replacement. A Pacemaker is noted in place. An old appearing compression fracture of the T10 vertebral body is noted. No retropulsion of bone fragments into the central spinal canal seen. No acute compression fracture of the thoracic or lumbar vertebrae is noted. Degenerative changes are seen involving the facet joints throughout the mid and lower lumbar spine. The Changes of degenerative disc disease are seen involving lumbar disc spaces. These consist of mild to moderate generalized disc bulges and degenerative changes involving the facet joints. These Findings result in mild to moderate central spinal canal stenosis at L2-3 and L4-5 and moderate to severe central spinal canal stenosis at L3-4. Moderate right neural foraminal stenosis is seen at L3-4. IMPRESSION: No acute fracture or subluxation of the thoracic or lumbar vertebrae is seen. VTE Prophylaxis Ordered VTE Prophylaxis Devices: Yes VTE Pharmacological Prophylaxi: Yes Assessment/Plan Assessment/Plan A/P: Back pain - intractable, likely pyelonephritis with UTI symptoms, left sided. Will have PT for gait assessment once her pain is better controlled. TRENT - vasomotor nephropathy, will cont IVF, monitor creatinine [employer]-D in situ: RV pacing. x1 episode of 4 sec NSVT this morning. Interrogation revealed nml function and no associated arrhythmia related to her syncope DM2 - will place on insulin, hold sulfonylurea for TRENT and h/o hypoglycemia Chronic systolic/diatolic CHF - appears compensated currently with good UOP CAD: past stent and CABG in 2014, clinically stable H/O Bioprosthetic AVR H/o ischemic cardiomyopathy - EF at 55%, compensated Confusion - likely metabolic encephalopathy from acute UTI, will treat, There may be some mild cognitive impairment underlying FEN - ADA cardiac diet PPX - heparin DNR/DNI Dispo - inpatient for 2 midnights. May need to consider SNF Justicifation of Admission Dx: Justifications for Admission: Justification of Admission Dx: Yes Acute Renal Failure: RF Can't Be Managed Outpt MADISON COURTNEY MD May 16, 2020 13:48
--- NOTE | 2020-05-16 13:49 | RAD ---
CT scan of the thoracic and lumbar spine without contrast 05/16/2020 CLINICAL HISTORY: Mid and low back pain for last 2-3 days. TECHNIQUE: Unenhanced, contiguous, 0.625 mm axial sections were obtained through the thoracic and lumbar spine. 3 mm reconstructed sagittal, axial and coronal images were obtained. One or more of the following individualized dose reduction techniques were utilized for this study: 1. Automated exposure control. 2. Adjustment of the mA and/or kV according to patient size. 3. Use of iterative reconstruction technique. FINDINGS: Comparison is made to radiographs of the thoracic and lumbar spine dated 01/02/2020. Sagittal and coronal reconstructed images demonstrate minimal S-shaped curvature of the thoracolumbar spine. The patient is post kyphoplasty type procedure for compression fractures involving the T7 and T8 vertebral bodies. Degenerative changes are seen involving the thoracic and lumbar spine and the lumbar disc spaces consisting of vertebral endplate sclerosis and minimal to mild anterior vertebral body osteophyte formation. Extensive atherosclerotic calcification of the thoracic and abdominal aorta and their branches is noted. There is a large hiatal hernia. The Patient is post mitral valve replacement. A Pacemaker is noted in place. An old appearing compression fracture of the T10 vertebral body is noted. No retropulsion of bone fragments into the central spinal canal seen. No acute compression fracture of the thoracic or lumbar vertebrae is noted. Degenerative changes are seen involving the facet joints throughout the mid and lower lumbar spine. The Changes of degenerative disc disease are seen involving lumbar disc spaces. These consist of mild to moderate generalized disc bulges and degenerative changes involving the facet joints. These Findings result in mild to moderate central spinal canal stenosis at L2-3 and L4-5 and moderate to severe central spinal canal stenosis at L3-4. Moderate right neural foraminal stenosis is seen at L3-4. IMPRESSION: No acute fracture or subluxation of the thoracic or lumbar vertebrae is seen. Electronically signed by: Elia Jung MD (05/16/2020 1:46 PM) [id number]
[2020-05-16] MEDS: IV NORMAL SALINE 1000ML BAG 1,000 ML IV SCH ×2 (13:58→22:01)
[2020-05-16 14:50] VITALS: BP 147/74
--- NOTE | 2020-05-16 14:56 | NUR ---
The patient, MITCH STEWART, 85 y/o, F admitted by , was given written information regarding hospital policies, unit procedures and contact persons. Son at bed side, patient states no pain at this time. Awaiting medication list from family. Will continue to monitor.
[2020-05-16] MEDS ORDERED: GLIP5TAB10 PO (15:15)
[2020-05-16] MEDS: PATCH REMOVAL. MC SCH (16:51)
[2020-05-16 19:00] VITALS: BP 160/79
[2020-05-16] MEDS ORDERED: DOCUSATE SODIUM 100 MG CAPSULE. PO PRN (21:15)
[2020-05-16] MEDS ORDERED: guaiFENesin ORAL 200 MG/10 ML LIQUID. PO PRN (21:15)
[2020-05-16] MEDS ORDERED: POLYETHYLENE GLYCOL 3350 17 GM PACKET. PO PRN (21:15)
[2020-05-16] MEDS ORDERED: DEXTROSE 50% 25 GM / 50ML DISP.SYRIN. IV PRN (21:15)
[2020-05-16] MEDS: PSYLLIUM HUSK (SUGAR FREE) 1 PKT PACKET PO SCH (21:45)
[2020-05-16] MEDS: INSULIN LISPRO 300 UNITS/3 ML VIAL. SQ SCH (21:45)
[2020-05-16] MEDS: INSULIN GLARGINE SYRINGE. SQ SCH (21:45)
[2020-05-16] MEDS: HEPARIN for SUB-Q USE 5,000 UNIT/ML VIAL. SQ SCH (22:00)
[2020-05-16] MEDS: rOPINIRole 1 MG TABLET. PO SCH (22:21)
[2020-05-16] MEDS: amLODIPine BESYLATE 10 MG TABLET PO SCH (22:22)
--- NOTE | 2020-05-16 22:36 | NUR ---
Patient refused Lantus insulin, metamucil and heparin. Patient stated she does not take these meds at home and she does not want to take them.
[2020-05-16 23:00] VITALS: BP 153/67
[2020-05-16] MEDS: ACETAMINOPHEN 325 MG TABLET. PO PRN (23:14)
[2020-05-17 03:00] VITALS: BP 146/64
[2020-05-17] MEDS: ACETAMINOPHEN 325 MG TABLET. PO PRN ×2 (04:52→09:01)
[2020-05-17 05:48] LABS: CALCIUM 7.7 mg/dL (8.5-10.1); CREATININE 1.6 mg/dL (0.6-1.0); GFR 30.5; POTASSIUM 4.4 mmol/L (3.5-5.1)
--- NOTE | 2020-05-17 06:20 | NUR ---
Patient was agreeable to take heparin injection this morning.
[2020-05-17] MEDS: LEVOTHYROXINE 25 MCG TABLET. PO SCH (06:22)
[2020-05-17] MEDS: HEPARIN for SUB-Q USE 5,000 UNIT/ML VIAL. SQ SCH ×3 (06:27→22:50)
[2020-05-17 07:00] VITALS: BP 142/71
[2020-05-17] MEDS: INSULIN LISPRO 300 UNITS/3 ML VIAL. SQ SCH ×4 (07:30→21:00)
[2020-05-17] MEDS: ALBUTEROL SULFATE 2.5 MG/3 ML NEBU. NEB SCH ×4 (07:33→20:22)
--- NOTE | 2020-05-17 08:04 | PDOC ---
PROGRESS NOTES Chief Complaint Chief Complaint A/P: Back pain - intractable, likely pyelonephritis with UTI symptoms, left sided. Will have PT for gait assessment once her pain is better controlled. T9, T10, T11 vertebral height loss - d/w IR to get bone scan to assess acuity of T10 compression fracture. 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 x1 episode of 4 sec NSVT this morning. Interrogation revealed nml function and no associated arrhythmia related to her syncope DM2 - will place on insulin, hold sulfonylurea for TRENT and h/o hypoglycemia Chronic systolic/diatolic CHF - appears compensated currently with good UOP CAD: past stent and CABG in 2014, clinically stable H/O Bioprosthetic AVR H/o ischemic cardiomyopathy - EF at 55%, compensated Confusion - likely metabolic encephalopathy from acute UTI, will treat, There may be some mild cognitive impairment underlying FEN - ADA cardiac diet PPX - heparin DNR/DNI Dispo - inpatient for 2 midnights. May need to consider SNF History of Present Illness History of Present Illness Ms Sierra is an 85 yo F w/ PMHx ex-smoker, anemia, arrhythmia s/p PPM, CAD, CVA, DM2, HTN, PUD, COPD who presents to the emergency department with complaints of low back pain for the last 2 to 3 days. No injuries, but movement worsens it as well as pressure. Rest relieves it. She does have frequent UTIs, and has some incontinence issues, but no h/o fecal incontinence and she is aware when she has urinary incontinence. She denies any fever, cough, chest pain, palpitations, abdominal pain, nausea, vomiting, diarrhea, or bloody stools. She denies any numbness, or tingling of her extremities. Her pain is 10 out of 10 on the pain scale, she has tried taking Tylenol and ibuprofen for relief of her pain with no benefit. Her back pain is so severe she is unable to walk due to this. CT scans of the thoracic and lumbar regions show no acute pathology. WBC 6.7, Hb 11.8, Sodium 134, BUN of 32, and creatinine of 1.7, UA with large amount of leuk esterase too many to count white blood cells The patient was given 1 g of IV Rocephin and 500 mils of NS in the emergency department. Back pain had initially improved, now worsened. Cr 1.6 now. Family worried she has another fracture. No CP or SOB. Vitals Vitals Vital Signs Date Time Temp Pulse Resp B/P (MAP) Pulse Ox O2 Delivery O2 Flow Rate FiO2 05/17/20 07:35 95 Room Air 05/17/20 07:00 98.0 79 18 142/71 (94) 98.0 Physical Exam General: Alert, Cooperative, moderate distress Lungs: Clear, Other Abdomen: Normal bowel sounds, Soft, No hepatosplenomegaly, No masses, Other (left CVA tenderness) Extremities: No clubbing, No cyanosis, No edema, Normal pulses, No tenderness/swelling Skin: No rashes, No breakdown, No significant lesion Labs LABS Laboratory Tests Test 05/16/20 12:25 05/16/20 22:01 05/17/20 03:22 05/17/20 07:15 White Blood Count 6.7 x10^3/uL (4.0-11.0) Red Blood Count 4.24 x10^6/uL (3.50-5.40) Hemoglobin 11.8 g/dL (12.0-15.5) Hematocrit 35.4 % (36.0-47.0) Mean Corpuscular Volume 84 fL (79-100) Mean Corpuscular Hemoglobin 28 pg (25-35) Mean Corpuscular Hemoglobin Concent 33 g/dL (31-37) Red Cell Distribution Width 18.4 % (11.5-14.5) Platelet Count 246 x10^3/uL (140-400) Neutrophils (%) (Auto) 63 % (31-73) Lymphocytes (%) (Auto) 25 % (24-48) Monocytes (%) (Auto) 7 % (0-9) Eosinophils (%) (Auto) 4 % (0-3) Basophils (%) (Auto) 1 % (0-3) Neutrophils # (Auto) 4.2 x10^3/uL (1.8-7.7) Lymphocytes # (Auto) 1.7 x10^3/uL (1.0-4.8) Monocytes # (Auto) 0.5 x10^3/uL (0.0-1.1) Eosinophils # (Auto) 0.3 x10^3/uL (0.0-0.7) Basophils # (Auto) 0.0 x10^3/uL (0.0-0.2) Urine Collection Type U cath Urine Color Yellow Urine Clarity Clear Urine pH 6.5 (<5.0-8.0) Urine Specific [place] 1.010 (1.000-1.030) Urine Protein >=300 mg/dL (NEG-TRACE) Urine Glucose (UA) Negative mg/dL (NEG) Urine Ketones (Stick) Negative mg/dL (NEG) Urine Blood Trace (NEG) Urine Nitrite Negative (NEG) Urine Bilirubin Negative (NEG) Urine Urobilinogen Dipstick 0.2 mg/dL (0.2 mg/dL) Urine Leukocyte Esterase Large (NEG) Urine RBC 0 /HPF (0-2) Urine WBC Tntc /HPF (0-4) Urine Squamous Epithelial Cells Mod /LPF Urine Bacteria Moderate /HPF (0-FEW) Urine Hyaline Casts Few /HPF Sodium Level 134 mmol/L (136-145) 138 mmol/L (136-145) Potassium Level 4.8 mmol/L (3.5-5.1) 4.4 mmol/L (3.5-5.1) Chloride Level 101 mmol/L (98-107) 106 mmol/L (98-107) Carbon Dioxide Level 21 mmol/L (21-32) 21 mmol/L (21-32) Anion Gap 12 (6-14) 11 (6-14) Blood Urea Nitrogen 32 mg/dL (7-20) 31 mg/dL (7-20) Creatinine 1.7 mg/dL (0.6-1.0) 1.6 mg/dL (0.6-1.0) Estimated GFR (Cockcroft-Gault) 28.4 30.5 BUN/Creatinine Ratio 19 (6-20) Glucose Level 130 mg/dL (70-99) 89 mg/dL (70-99) Calcium Level 8.6 mg/dL (8.5-10.1) 7.7 mg/dL (8.5-10.1) Total Bilirubin 0.2 mg/dL (0.2-1.0) Aspartate Amino Transf (AST/SGOT) 18 U/L (15-37) Alanine Aminotransferase (ALT/SGPT) 9 U/L (14-59) Alkaline Phosphatase 99 U/L (46-116) Total Protein 7.4 g/dL (6.4-8.2) Albumin 3.3 g/dL (3.4-5.0) Albumin/Globulin Ratio 0.8 (1.0-1.7) Glucose (Fingerstick) 115 mg/dL (70-99) 106 mg/dL (70-99) Assessment and Plan Assessmemt and Plan Problems Medical Problems: (1) Urinary tract infection Status: Acute Comment Review of Relevant I have reviewed the following items milena (where applicable) has been applied. Labs Laboratory Tests Test 05/16/20 12:25 05/16/20 22:01 05/17/20 03:22 05/17/20 07:15 White Blood Count 6.7 x10^3/uL (4.0-11.0) Red Blood Count 4.24 x10^6/uL (3.50-5.40) Hemoglobin 11.8 g/dL (12.0-15.5) Hematocrit 35.4 % (36.0-47.0) Mean Corpuscular Volume 84 fL (79-100) Mean Corpuscular Hemoglobin 28 pg (25-35) Mean Corpuscular Hemoglobin Concent 33 g/dL (31-37) Red Cell Distribution Width 18.4 % (11.5-14.5) Platelet Count 246 x10^3/uL (140-400) Neutrophils (%) (Auto) 63 % (31-73) Lymphocytes (%) (Auto) 25 % (24-48) Monocytes (%) (Auto) 7 % (0-9) Eosinophils (%) (Auto) 4 % (0-3) Basophils (%) (Auto) 1 % (0-3) Neutrophils # (Auto) 4.2 x10^3/uL (1.8-7.7) Lymphocytes # (Auto) 1.7 x10^3/uL (1.0-4.8) Monocytes # (Auto) 0.5 x10^3/uL (0.0-1.1) Eosinophils # (Auto) 0.3 x10^3/uL (0.0-0.7) Basophils # (Auto) 0.0 x10^3/uL (0.0-0.2) Urine Collection Type U cath Urine Color Yellow Urine Clarity Clear Urine pH 6.5 (<5.0-8.0) Urine Specific [place] 1.010 (1.000-1.030) Urine Protein >=300 mg/dL (NEG-TRACE) Urine Glucose (UA) Negative mg/dL (NEG) Urine Ketones (Stick) Negative mg/dL (NEG) Urine Blood Trace (NEG) Urine Nitrite Negative (NEG) Urine Bilirubin Negative (NEG) Urine Urobilinogen Dipstick 0.2 mg/dL (0.2 mg/dL) Urine Leukocyte Esterase Large (NEG) Urine RBC 0 /HPF (0-2) Urine WBC Tntc /HPF (0-4) Urine Squamous Epithelial Cells Mod /LPF Urine Bacteria Moderate /HPF (0-FEW) Urine Hyaline Casts Few /HPF Sodium Level 134 mmol/L (136-145) 138 mmol/L (136-145) Potassium Level 4.8 mmol/L (3.5-5.1) 4.4 mmol/L (3.5-5.1) Chloride Level 101 mmol/L (98-107) 106 mmol/L (98-107) Carbon Dioxide Level 21 mmol/L (21-32) 21 mmol/L (21-32) Anion Gap 12 (6-14) 11 (6-14) Blood Urea Nitrogen 32 mg/dL (7-20) 31 mg/dL (7-20) Creatinine 1.7 mg/dL (0.6-1.0) 1.6 mg/dL (0.6-1.0) Estimated GFR (Cockcroft-Gault) 28.4 30.5 BUN/Creatinine Ratio 19 (6-20) Glucose Level 130 mg/dL (70-99) 89 mg/dL (70-99) Calcium Level 8.6 mg/dL (8.5-10.1) 7.7 mg/dL (8.5-10.1) Total Bilirubin 0.2 mg/dL (0.2-1.0) Aspartate Amino Transf (AST/SGOT) 18 U/L (15-37) Alanine Aminotransferase (ALT/SGPT) 9 U/L (14-59) Alkaline Phosphatase 99 U/L (46-116) Total Protein 7.4 g/dL (6.4-8.2) Albumin 3.3 g/dL (3.4-5.0) Albumin/Globulin Ratio 0.8 (1.0-1.7) Glucose (Fingerstick) 115 mg/dL (70-99) 106 mg/dL (70-99) Laboratory Tests Test 05/16/20 12:25 05/16/20 22:01 05/17/20 03:22 05/17/20 07:15 White Blood Count 6.7 x10^3/uL (4.0-11.0) Red Blood Count 4.24 x10^6/uL (3.50-5.40) Hemoglobin 11.8 g/dL (12.0-15.5) Hematocrit 35.4 % (36.0-47.0) Mean Corpuscular Volume 84 fL (79-100) Mean Corpuscular Hemoglobin 28 pg (25-35) Mean Corpuscular Hemoglobin Concent 33 g/dL (31-37) Red Cell Distribution Width 18.4 % (11.5-14.5) Platelet Count 246 x10^3/uL (140-400) Neutrophils (%) (Auto) 63 % (31-73) Lymphocytes (%) (Auto) 25 % (24-48) Monocytes (%) (Auto) 7 % (0-9) Eosinophils (%) (Auto) 4 % (0-3) Basophils (%) (Auto) 1 % (0-3) Neutrophils # (Auto) 4.2 x10^3/uL (1.8-7.7) Lymphocytes # (Auto) 1.7 x10^3/uL (1.0-4.8) Monocytes # (Auto) 0.5 x10^3/uL (0.0-1.1) Eosinophils # (Auto) 0.3 x10^3/uL (0.0-0.7) Basophils # (Auto) 0.0 x10^3/uL (0.0-0.2) Urine Collection Type U cath Urine Color Yellow Urine Clarity Clear Urine pH 6.5 (<5.0-8.0) Urine Specific [place] 1.010 (1.000-1.030) Urine Protein >=300 mg/dL (NEG-TRACE) Urine Glucose (UA) Negative mg/dL (NEG) Urine Ketones (Stick) Negative mg/dL (NEG) Urine Blood Trace (NEG) Urine Nitrite Negative (NEG) Urine Bilirubin Negative (NEG) Urine Urobilinogen Dipstick 0.2 mg/dL (0.2 mg/dL) Urine Leukocyte Esterase Large (NEG) Urine RBC 0 /HPF (0-2) Urine WBC Tntc /HPF (0-4) Urine Squamous Epithelial Cells Mod /LPF Urine Bacteria Moderate /HPF (0-FEW) Urine Hyaline Casts Few /HPF Sodium Level 134 mmol/L (136-145) 138 mmol/L (136-145) Potassium Level 4.8 mmol/L (3.5-5.1) 4.4 mmol/L (3.5-5.1) Chloride Level 101 mmol/L (98-107) 106 mmol/L (98-107) Carbon Dioxide Level 21 mmol/L (21-32) 21 mmol/L (21-32) Anion Gap 12 (6-14) 11 (6-14) Blood Urea Nitrogen 32 mg/dL (7-20) 31 mg/dL (7-20) Creatinine 1.7 mg/dL (0.6-1.0) 1.6 mg/dL (0.6-1.0) Estimated GFR (Cockcroft-Gault) 28.4 30.5 BUN/Creatinine Ratio 19 (6-20) Glucose Level 130 mg/dL (70-99) 89 mg/dL (70-99) Calcium Level 8.6 mg/dL (8.5-10.1) 7.7 mg/dL (8.5-10.1) Total Bilirubin 0.2 mg/dL (0.2-1.0) Aspartate Amino Transf (AST/SGOT) 18 U/L (15-37) Alanine Aminotransferase (ALT/SGPT) 9 U/L (14-59) Alkaline Phosphatase 99 U/L (46-116) Total Protein 7.4 g/dL (6.4-8.2) Albumin 3.3 g/dL (3.4-5.0) Albumin/Globulin Ratio 0.8 (1.0-1.7) Glucose (Fingerstick) 115 mg/dL (70-99) 106 mg/dL (70-99) Medications Current Medications Fentanyl Citrate (Fentanyl 2ml Vial) 50 mcg 1X ONCE IV Last administered on 05/16/20at 12:56; Start 05/16/20 at 12:30; Stop 05/16/20 at 12:31; Status DC Ceftriaxone Sodium (Rocephin) 1 gm 1X ONCE IVP Last administered on 05/16/20at 14:29; Start 05/16/20 at 13:30; Stop 05/16/20 at 13:31; Status DC Sodium Chloride 1,000 ml @ 1,000 mls/hr 1X ONCE IV Last administered on 05/16/20at 13:30; Start 05/16/20 at 13:30; Stop 05/16/20 at 14:29; Status DC Sodium Chloride 1,000 ml @ 100 mls/hr Q10H IV Last administered on 05/16/20at 22:01; Start 05/16/20 at 13:58; Stop 05/17/20 at 13:57 Lidocaine (Lidoderm) 1 patch DAILY TD ; Start 05/17/20 at 09:00 Miscellaneous (Lidoderm Patch Removal) 1 ea QHS MC ; Start 05/16/20 at 21:00 Acetaminophen (Tylenol) 650 mg PRN Q4HRS PRN PO TEMP OVER 100.4F OR MILD PAIN Last administered on 05/17/20at 04:52; Start 05/16/20 at 21:15 Amlodipine Besylate (Norvasc) 10 mg HS PO Last administered on 05/16/20at 22:22; Start 05/16/20 at 21:30 Aspirin (Ecotrin) 81 mg DAILYWBKFT PO ; Start 05/17/20 at 08:00 Clopidogrel Bisulfate (Plavix) 75 mg DAILY PO ; Start 05/17/20 at 09:00 Docusate Sodium (Colace) 100 mg PRN BID PRN PO CONSTIPATION; Start 05/16/20 at 21:15 Guaifenesin (Robitussin) 200 mg PRN Q4HRS PRN PO COUGH; Start 05/16/20 at 21:15 Lactobacillus Rhamnosus (Culturelle) 1 cap DAILY PO ; Start 05/17/20 at 09:00 Levothyroxine Sodium (Synthroid) 25 mcg DAILY06 PO Last administered on 05/17/20at 06:22; Start 05/17/20 at 06:00 Pantoprazole Sodium (Protonix) 40 mg DAILYAC PO ; Start 05/17/20 at 07:30 Ropinirole HCl (Requip) 1 mg HS PO Last administered on 05/16/20at 22:21; Start 05/16/20 at 21:45 Non-Formulary Medication (Albuterol Sulfate (Albuterol Sulfate Conc Neb Soln)) 1 vial QID NEB ; Start 05/17/20 at 09:00; Status UNV Carvedilol (Coreg) 12.5 mg BIDWMEALS PO ; Start 05/17/20 at 08:00 Polyethylene Glycol (miraLAX PACKET) 17 gm PRN DAILY PRN PO CONSTIPATION; Start 05/16/20 at 21:15 Psyllium Hydrophilic Mucilloid (Metamucil Fiber Packet) 1 pkt QHS PO ; Start 05/16/20 at 21:45 Insulin Glargine (Lantus Syringe) 5 unit QHS SQ ; Start 05/16/20 at 21:45 Insulin Human Lispro (HumaLOG) 0-7 UNITS TIDACHC SQ ; Start 05/16/20 at 21:45 Dextrose (Dextrose 50%-Water Syringe) 12.5 gm PRN Q15MIN PRN IV SEE COMMENTS; Start 05/16/20 at 21:15 Heparin Sodium (Porcine) (Heparin Sodium) 5,000 unit Q8HRS SQ Last administered on 05/17/20at 06:27; Start 05/16/20 at 22:00 Ceftriaxone Sodium (Rocephin) 1 gm Q24H IVP ; Start 05/17/20 at 14:00 Albuterol Sulfate (Ventolin Neb Soln) 2.5 mg RTQID NEB Last administered on 05/17/20at 07:33; Start 05/17/20 at 08:00 Active Scripts Active Cefdinir 300 Mg Capsule 1 Cap PO BID Dok (Docusate Sodium) 100 Mg Capsule 100 Mg PO PRN BID PRN 14 Days Guaifenesin 100 Mg/5 Ml Liquid 200 Mg PO PRN Q4HRS PRN 10 Days Tylenol (Acetaminophen) 325 Mg Tablet 650 Mg PO PRN Q4HRS PRN 14 Days Synthroid (Levothyroxine Sodium) 25 Mcg Tablet 25 Mcg PO DAILY06 30 Days Reported Glipizide 5 Mg Tablet 1 Tab PO BID Polyethylene Glycol 3350 2,500 Gm Powder 17 Gm PO DAILY PRN Culturelle (Lactobacillus Rhamnosus Gg) 1 Each Cap.sprink 1 Cap PO DAILY 30 Days Albuterol Sulfate Conc Neb Soln (Albuterol Sulfate) 2.5 Mg/0.5 Ml Vial.neb 1 Vial NEB QID Ropinirole Hcl 1 Mg Tablet 1 Mg PO HS Carvedilol 25 Mg Tablet 0.5 Tab PO BID Plavix (Clopidogrel Bisulfate) 75 Mg Tablet 1 Tab PO DAILY Aspir 81 (Aspirin) 81 Mg Tablet. 1 Tab PO DAILY Pantoprazole Sodium (Pantoprazole Sodium) 40 Mg Tablet. 40 Mg PO DAILY Amlodipine Besylate 10 Mg Tablet 10 Mg PO HS Vitals/I & O Vital Sign - Last 24 Hours 05/16/20 05/16/20 05/16/20 05/16/20 12:27 12:56 13:30 14:30 Temp 97.6 97.6 Pulse 81 80 80 Resp 16 16 18 18 B/P (MAP) 138/86 (103) 111/72 (85) 148/78 (101) Pulse Ox 98 99 92 95 O2 Delivery Room Air Room Air Room Air Room Air 05/16/20 05/16/20 05/16/20 05/16/20 14:50 15:39 19:00 19:45 Temp 97.6 97.9 97.6 97.9 Pulse 76 79 Resp 18 18 B/P (MAP) 147/74 (98) 160/79 (106) Pulse Ox 96 93 O2 Delivery Room Air Room Air Room Air Room Air 05/16/20 05/16/20 05/17/20 05/17/20 22:22 23:00 03:00 07:00 Temp 98.9 97.5 98.0 98.9 97.5 98.0 Pulse 79 79 80 79 Resp 18 18 18 B/P (MAP) 160/79 153/67 (95) 146/64 (91) 142/71 (94) Pulse Ox 90 94 92 O2 Delivery Room Air Room Air Room Air 05/17/20 07:35 Pulse Ox 95 O2 Delivery Room Air Intake and Output 05/16/20 05/16/20 05/17/20 14:59 22:59 06:59 Intake Total 240 ml Balance 240 ml MADISON COURTNEY MD May 17, 2020 08:04
--- NOTE | 2020-05-17 08:15 | NUR ---
Patient refusing to wake up to take morning medications. Will attempt again later on.
[2020-05-17] MEDS: ASPIRIN ENTERIC COATED 81 MG TABLET.DR. PO SCH (09:00)
[2020-05-17] MEDS: PANTOPRAZOLE 40 MG TABLET.DR. PO SCH (09:00)
[2020-05-17] MEDS: LIDOCAINE (700MG/PATCH) PATCH. TD SCH (09:00)
[2020-05-17] MEDS ORDERED: NON FORMULARY ITEM (Albuterol Sulfate (Albuterol Sulfate Conc Neb Soln) 1 VIAL) NEB SCH (09:00)
[2020-05-17] MEDS: CLOPIDOGREL BISULFATE 75 MG TABLET PO SCH (09:00)
[2020-05-17] MEDS: LACTOBACILLUS RHAMNOSUS GG 1 CAPSULE. PO SCH (09:01)
[2020-05-17] MEDS: CARVEDILOL 12.5 MG TABLET. PO SCH ×2 (09:01→16:37)
--- NOTE | 2020-05-17 10:11 | NUR ---
SW following. Discussed with RN, pt from home alone, room air. PT/OT worked with pt this morning, SW awaiting recommendations. SW will continue to follow. Addendum: 05/17/20 at 1601 by TANJA RODRIGUEZ PT/OT recommending SNU. MICHAEL met with pt (no isolation precautions at the time). Pt declined senior living, stating she is going home. Family at bedside did not express any concern with this. Pt has [facility] from previous discharge. Clinicals faxed to [facility] (ph: [phone], fax: [phone]). Home Health discharge orders will need to be faxed to [facility] upon discharge. RN notified. Information added to weekend discharge list for nursing costuming supervisor.
[2020-05-17 11:00] VITALS: BP 132/70
[2020-05-17] MEDS: IV NORMAL SALINE 1000ML BAG 1,000 ML IV SCH (11:16)
[2020-05-17] MEDS: tiZANidine 4 MG TABLET. PO PRN (13:39)
--- NOTE | 2020-05-17 13:55 | NUR ---
report given to Celina CARDOSO
--- NOTE | 2020-05-17 13:57 | CONS ---
DATE OF CONSULTATION: 05/17/2020 ATTENDING PHYSICIAN: Dr. Madsen. REASON FOR CONSULTATION: The patient was seen at the request of Dr. Madsen for rehab evaluation. HISTORY OF PRESENT ILLNESS: This is an 85-year-old female patient who was admitted through the Emergency Room with complaint of severe lower back pain started about 2 days ago after she was handling some trash can. The patient feels like she twisted her back. She denies any radiation of pain to the extremities. The patient had radiological studies, which revealed multilevel degenerative disk disease and degenerative joint disease of lumbar vertebrae with some degree of central spinal and neural foraminal stenosis and also old compression fractures of T7-T8 where she had kyphoplasty done earlier this year and also old compression fracture of T10 vertebral body. The patient with known urinary incontinence. PHYSICAL EXAMINATION: On physical examination revealed an elderly, thin built female. She is alert, oriented to time, place, person and circumstance and follows commands appropriately, moves all 4 extremities voluntarily where she had 4+/5 grade muscle strength. Deep tendon reflexes are 1-2+ and symmetrical with absent ankle jerks. She had equal perception of touch and pinprick sensation bilaterally. She had some hand intrinsic muscle atrophy. The patient had tenderness to palpation over mid and lower thoracic paraspinal muscles. Straight leg raising test is negative bilaterally. She complains of pain on rolling from side to side and even with abdominal binder as thoracic support. The patient is having difficulty to come to a sitting position and standing position. With helps she did it, but she complains of increasing pain while trying to make a few steps at bedside using a roller walker. ASSESSMENT: An elderly female with lower thoracic sprain in a patient with old T8, T7 and T10 vertebral body compression fracture, status post kyphoplasty of T7 and T8 earlier this year and also degenerative disk disease and degenerative joint disease of cervical and lumbar vertebrae without any clinical evidence of ongoing cervical or thoracic or lumbar radiculopathy. The patient had clinical evidence of peripheral neuropathy. She had chronic urinary incontinence. RECOMMENDATIONS: To try her with a collins back support to see if that might help ease her pain while getting up if she can tolerate it. Agree the plan for physical therapy and occupational therapy to try tizanidine as per muscle spasm. Dr. Madsen, I appreciate asking me to participate in the care of this interesting patient. I will be glad to follow her with you as needed for her rehabilitation. DEISY RUSSO MD DR: LINH/asia JOB#: [id number] / [id number]
[2020-05-17 15:00] VITALS: BP 142/72
[2020-05-17] MEDS: cefTRIAXone IV Push 1 GM VIAL. IVP SCH (15:35)
--- NOTE | 2020-05-17 16:02 | NUR ---
Dr. Madsen notified of PRINCE brace from [facility] not approved. No new telephone orders received.
[2020-05-17] MEDS: traMADol 50 MG TABLET PO PRN (16:37)
[2020-05-17 19:00] VITALS: BP 163/76
[2020-05-17] MEDS: PSYLLIUM HUSK (SUGAR FREE) 1 PKT PACKET PO SCH (20:46)
[2020-05-17] MEDS: rOPINIRole 1 MG TABLET. PO SCH (20:46)
[2020-05-17] MEDS: INSULIN GLARGINE SYRINGE. SQ SCH (20:47)
[2020-05-17] MEDS: PATCH REMOVAL. MC SCH (20:49)
--- NOTE | 2020-05-17 20:49 | NUR ---
PVR-10ml, voided 550ml in the [facility], Lidoderm patch off from pt's back tonight
[2020-05-17] MEDS: amLODIPine BESYLATE 10 MG TABLET PO SCH (21:00)
[2020-05-17 23:00] VITALS: BP 167/83
[2020-05-18 03:00] VITALS: BP 155/77
[2020-05-18] MEDS: PANTOPRAZOLE 40 MG TABLET.DR. PO SCH (06:35)
[2020-05-18] MEDS: LEVOTHYROXINE 25 MCG TABLET. PO SCH (06:36)
[2020-05-18] MEDS: HEPARIN for SUB-Q USE 5,000 UNIT/ML VIAL. SQ SCH ×3 (06:39→21:28)
[2020-05-18 07:00] VITALS: BP 155/79
[2020-05-18] MEDS: ALBUTEROL SULFATE 2.5 MG/3 ML NEBU. NEB SCH ×4 (07:29→18:22)
[2020-05-18] MEDS: INSULIN LISPRO 300 UNITS/3 ML VIAL. SQ SCH ×4 (07:30→21:00)
--- NOTE | 2020-05-18 08:50 | PDOC ---
PROGRESS NOTES Chief Complaint Chief Complaint A/P: Back pain - intractable, likely pyelonephritis with UTI symptoms, left sided. Will have PT for gait assessment once her pain is better controlled. T9, T10, T11 vertebral height loss - d/w IR to get bone scan to assess acuity of T10 compression fracture. TRENT - vasomotor nephropathy, will cont IVF, monitor creatinine LOG SORTER-D in situ: RV pacing. x1 episode of 4 sec NSVT this morning. Interrogation revealed nml function and no associated arrhythmia related to her syncope DM2 - will place on insulin, hold sulfonylurea for TRENT and h/o hypoglycemia Chronic systolic/diatolic CHF - appears compensated currently with good UOP CAD: past stent and CABG in 2014, clinically stable H/O Bioprosthetic AVR H/o ischemic cardiomyopathy - EF at 55%, compensated Confusion - likely metabolic encephalopathy from acute UTI, will treat, There may be some mild cognitive impairment underlying FEN - ADA cardiac diet PPX - heparin DNR/DNI Dispo - inpatient for 2 midnights. May need to consider SNF History of Present Illness History of Present Illness Ms Sierra is an 85 yo F w/ PMHx ex-smoker, anemia, arrhythmia s/p PPM, CAD, CVA, DM2, HTN, PUD, COPD who presents to the emergency department with complaints of low back pain for the last 2 to 3 days. No injuries, but movement worsens it as well as pressure. Rest relieves it. She does have frequent UTIs, and has some incontinence issues, but no h/o fecal incontinence and she is aware when she has urinary incontinence. She denies any fever, cough, chest pain, palpitations, abdominal pain, nausea, vomiting, diarrhea, or bloody stools. She denies any numbness, or tingling of her extremities. Her pain is 10 out of 10 on the pain scale, she has tried taking Tylenol and ibuprofen for relief of her pain with no benefit. Her back pain is so severe she is unable to walk due to this. CT scans of the thoracic and lumbar regions show no acute pathology. WBC 6.7, Hb 11.8, Sodium 134, BUN of 32, and creatinine of 1.7, UA with large amount of leuk esterase too many to count white blood cells The patient was given 1 g of IV Rocephin and 500 mils of NS in the emergency department. 05/17: Back pain had initially improved, now worsened. Cr 1.6 now. Family worried she has another fracture. No CP or SOB. Glucose in 100s. Still with back pain, but only if she moves. PRINCE brace apparently not covered. She thinks she had one previously. D/w son bedside her T10 fracture and possible T9 and T11 after my d/w IR on 05/17/2020. UTI proteus mirabilis pansensitive. Plan: Nuclear medicine bone scan to confirm acute/subacute T10 fracture and better assess T9 and T11. Vitals Vitals Vital Signs Date Time Temp Pulse Resp B/P (MAP) Pulse Ox O2 Delivery O2 Flow Rate FiO2 05/18/20 07:29 94 Room Air 05/18/20 07:00 97.9 57 16 155/79 (104) 97.9 Physical Exam General: Alert, Cooperative, moderate distress Lungs: Clear, Other Abdomen: Normal bowel sounds, Soft, No hepatosplenomegaly, No masses, Other (left CVA tenderness) Extremities: No clubbing, No cyanosis, No edema, Normal pulses, No tenderness/swelling Skin: No rashes, No breakdown, No significant lesion Labs LABS Laboratory Tests Test 05/17/20 11:45 05/17/20 16:41 05/17/20 20:46 05/18/20 07:26 Glucose (Fingerstick) 127 mg/dL (70-99) 120 mg/dL (70-99) 108 mg/dL (70-99) 102 mg/dL (70-99) Assessment and Plan Assessmemt and Plan Problems Medical Problems: (1) Urinary tract infection Status: Acute Comment Review of Relevant I have reviewed the following items milena (where applicable) has been applied. Labs Laboratory Tests Test 05/16/20 12:25 05/16/20 22:01 05/17/20 03:22 05/17/20 07:15 White Blood Count 6.7 x10^3/uL (4.0-11.0) Red Blood Count 4.24 x10^6/uL (3.50-5.40) Hemoglobin 11.8 g/dL (12.0-15.5) Hematocrit 35.4 % (36.0-47.0) Mean Corpuscular Volume 84 fL (79-100) Mean Corpuscular Hemoglobin 28 pg (25-35) Mean Corpuscular Hemoglobin Concent 33 g/dL (31-37) Red Cell Distribution Width 18.4 % (11.5-14.5) Platelet Count 246 x10^3/uL (140-400) Neutrophils (%) (Auto) 63 % (31-73) Lymphocytes (%) (Auto) 25 % (24-48) Monocytes (%) (Auto) 7 % (0-9) Eosinophils (%) (Auto) 4 % (0-3) Basophils (%) (Auto) 1 % (0-3) Neutrophils # (Auto) 4.2 x10^3/uL (1.8-7.7) Lymphocytes # (Auto) 1.7 x10^3/uL (1.0-4.8) Monocytes # (Auto) 0.5 x10^3/uL (0.0-1.1) Eosinophils # (Auto) 0.3 x10^3/uL (0.0-0.7) Basophils # (Auto) 0.0 x10^3/uL (0.0-0.2) Urine Collection Type U cath Urine Color Yellow Urine Clarity Clear Urine pH 6.5 (<5.0-8.0) Urine Specific [place] 1.010 (1.000-1.030) Urine Protein >=300 mg/dL (NEG-TRACE) Urine Glucose (UA) Negative mg/dL (NEG) Urine Ketones (Stick) Negative mg/dL (NEG) Urine Blood Trace (NEG) Urine Nitrite Negative (NEG) Urine Bilirubin Negative (NEG) Urine Urobilinogen Dipstick 0.2 mg/dL (0.2 mg/dL) Urine Leukocyte Esterase Large (NEG) Urine RBC 0 /HPF (0-2) Urine WBC Tntc /HPF (0-4) Urine Squamous Epithelial Cells Mod /LPF Urine Bacteria Moderate /HPF (0-FEW) Urine Hyaline Casts Few /HPF Sodium Level 134 mmol/L (136-145) 138 mmol/L (136-145) Potassium Level 4.8 mmol/L (3.5-5.1) 4.4 mmol/L (3.5-5.1) Chloride Level 101 mmol/L (98-107) 106 mmol/L (98-107) Carbon Dioxide Level 21 mmol/L (21-32) 21 mmol/L (21-32) Anion Gap 12 (6-14) 11 (6-14) Blood Urea Nitrogen 32 mg/dL (7-20) 31 mg/dL (7-20) Creatinine 1.7 mg/dL (0.6-1.0) 1.6 mg/dL (0.6-1.0) Estimated GFR (Cockcroft-Gault) 28.4 30.5 BUN/Creatinine Ratio 19 (6-20) Glucose Level 130 mg/dL (70-99) 89 mg/dL (70-99) Calcium Level 8.6 mg/dL (8.5-10.1) 7.7 mg/dL (8.5-10.1) Total Bilirubin 0.2 mg/dL (0.2-1.0) Aspartate Amino Transf (AST/SGOT) 18 U/L (15-37) Alanine Aminotransferase (ALT/SGPT) 9 U/L (14-59) Alkaline Phosphatase 99 U/L (46-116) Total Protein 7.4 g/dL (6.4-8.2) Albumin 3.3 g/dL (3.4-5.0) Albumin/Globulin Ratio 0.8 (1.0-1.7) Glucose (Fingerstick) 115 mg/dL (70-99) 106 mg/dL (70-99) Test 05/17/20 11:45 05/17/20 16:41 05/17/20 20:46 05/18/20 07:26 Glucose (Fingerstick) 127 mg/dL (70-99) 120 mg/dL (70-99) 108 mg/dL (70-99) 102 mg/dL (70-99) Laboratory Tests Test 05/17/20 11:45 05/17/20 16:41 05/17/20 20:46 05/18/20 07:26 Glucose (Fingerstick) 127 mg/dL (70-99) 120 mg/dL (70-99) 108 mg/dL (70-99) 102 mg/dL (70-99) Microbiology 05/16/20 Urine Culture - Final, Complete 05/16/20 Antimicrobic Susceptibility - Final, Complete Medications Current Medications Fentanyl Citrate (Fentanyl 2ml Vial) 50 mcg 1X ONCE IV Last administered on 05/16/20at 12:56; Start 05/16/20 at 12:30; Stop 05/16/20 at 12:31; Status DC Ceftriaxone Sodium (Rocephin) 1 gm 1X ONCE IVP Last administered on 05/16/20at 14:29; Start 05/16/20 at 13:30; Stop 05/16/20 at 13:31; Status DC Sodium Chloride 1,000 ml @ 1,000 mls/hr 1X ONCE IV Last administered on 05/16/20at 13:30; Start 05/16/20 at 13:30; Stop 05/16/20 at 14:29; Status DC Sodium Chloride 1,000 ml @ 100 mls/hr Q10H IV Last administered on 05/17/20at 11:16; Start 05/16/20 at 13:58; Stop 05/17/20 at 13:57; Status DC Lidocaine (Lidoderm) 1 patch DAILY TD Last administered on 05/17/20at 09:00; Start 05/17/20 at 09:00 Miscellaneous (Lidoderm Patch Removal) 1 ea QHS ; Start 05/16/20 at 21:00 Acetaminophen (Tylenol) 650 mg PRN Q4HRS PRN PO TEMP OVER 100.4F OR MILD PAIN Last administered on 05/17/20at 09:01; Start 05/16/20 at 21:15 Amlodipine Besylate (Norvasc) 10 mg HS PO Last administered on 05/17/20at 21:00; Start 05/16/20 at 21:30 Aspirin (Ecotrin) 81 mg DAILYWBKFT PO Last administered on 05/17/20at 09:00; Start 05/17/20 at 08:00 Clopidogrel Bisulfate (Plavix) 75 mg DAILY PO Last administered on 05/17/20at 09:00; Start 05/17/20 at 09:00 Docusate Sodium (Colace) 100 mg PRN BID PRN PO CONSTIPATION; Start 05/16/20 at 21:15 Guaifenesin (Robitussin) 200 mg PRN Q4HRS PRN PO COUGH; Start 05/16/20 at 21:15 Lactobacillus Rhamnosus (Culturelle) 1 cap DAILY PO Last administered on 05/17/20at 09:01; Start 05/17/20 at 09:00 Levothyroxine Sodium (Synthroid) 25 mcg DAILY06 PO Last administered on 05/18/20 06:36; Start 05/17/20 at 06:00 Pantoprazole Sodium (Protonix) 40 mg DAILYAC PO Last administered on 05/18/20 06:35; Start 05/17/20 at 07:30 Ropinirole HCl (Requip) 1 mg HS PO Last administered on 05/17/20 20:46; Start 05/16/20 at 21:45 Non-Formulary Medication (Albuterol Sulfate (Albuterol Sulfate Conc Neb Soln)) 1 vial QID NEB ; Start 05/17/20 at 09:00; Status UNV Carvedilol (Coreg) 12.5 mg BIDWMEALS PO Last administered on 05/17/20 16:37; Start 05/17/20 at 08:00 Polyethylene Glycol (miraLAX PACKET) 17 gm PRN DAILY PRN PO CONSTIPATION; Start 05/16/20 at 21:15 Psyllium Hydrophilic Mucilloid (Metamucil Fiber Packet) 1 pkt QHS PO Last administered on 05/17/20 20:46; Start 05/16/20 at 21:45 Insulin Glargine (Lantus Syringe) 5 unit QHS SQ Last administered on 05/17/20 20:47; Start 05/16/20 at 21:45 Insulin Human Lispro (HumaLOG) 0-7 UNITS TIDACHC SQ ; Start 05/16/20 at 21:45 Dextrose (Dextrose 50%-Water Syringe) 12.5 gm PRN Q15MIN PRN IV SEE COMMENTS; Start 05/16/20 at 21:15 Heparin Sodium (Porcine) (Heparin Sodium) 5,000 unit Q8HRS SQ Last administered on 05/18/20 06:39; Start 05/16/20 at 22:00 Ceftriaxone Sodium (Rocephin) 1 gm Q24H IVP Last administered on 05/17/20 15:35; Start 05/17/20 at 14:00 Albuterol Sulfate (Ventolin Neb Soln) 2.5 mg RTQID NEB Last administered on 05/18/20at 07:29; Start 05/17/20 at 08:00 Tramadol HCl (Ultram) 50 mg PRN Q6HRS PRN PO MODERATE PAIN, SEVERE PAIN Last administered on 05/17/20 16:37; Start 05/17/20 at 13:30 Tizanidine HCl (Zanaflex) 4 mg PRN Q8HRS PRN PO MUSCLE SPASMS Last administered on 05/17/20at 13:39; Start 05/17/20 at 13:15 Active Scripts Active Cefdinir 300 Mg Capsule 1 Cap PO BID Dok (Docusate Sodium) 100 Mg Capsule 100 Mg PO PRN BID PRN 14 Days Guaifenesin 100 Mg/5 Ml Liquid 200 Mg PO PRN Q4HRS PRN 10 Days Tylenol (Acetaminophen) 325 Mg Tablet 650 Mg PO PRN Q4HRS PRN 14 Days Synthroid (Levothyroxine Sodium) 25 Mcg Tablet 25 Mcg PO DAILY06 30 Days Reported Glipizide 5 Mg Tablet 1 Tab PO BID Polyethylene Glycol 3350 2,500 Gm Powder 17 Gm PO DAILY PRN Culturelle (Lactobacillus Rhamnosus Gg) 1 Each Cap.sprink 1 Cap PO DAILY 30 Days Albuterol Sulfate Conc Neb Soln (Albuterol Sulfate) 2.5 Mg/0.5 Ml Vial.neb 1 Vial NEB QID Ropinirole Hcl 1 Mg Tablet 1 Mg PO HS Carvedilol 25 Mg Tablet 0.5 Tab PO BID Plavix (Clopidogrel Bisulfate) 75 Mg Tablet 1 Tab PO DAILY Aspir 81 (Aspirin) 81 Mg Tablet. 1 Tab PO DAILY Pantoprazole Sodium (Pantoprazole Sodium) 40 Mg Tablet. 40 Mg PO DAILY Amlodipine Besylate 10 Mg Tablet 10 Mg PO HS Vitals/I & O Vital Sign - Last 24 Hours 05/17/20 05/17/20 05/17/20 05/17/20 09:01 11:00 11:21 15:00 Temp 97.7 98.0 97.7 98.0 Pulse 79 82 74 Resp 18 18 B/P (MAP) 142/71 132/70 (90) 142/72 (95) Pulse Ox 92 92 O2 Delivery Room Air Room Air Room Air 05/17/20 05/17/20 05/17/20 05/17/20 15:26 16:37 16:37 17:49 Pulse 74 B/P (MAP) 142/72 O2 Delivery Room Air Room Air Room Air 05/17/20 05/17/20 05/17/20 05/17/20 19:00 20:00 20:22 21:00 Temp 98.1 98.1 Pulse 80 80 Resp 20 B/P (MAP) 163/76 (105) 163/76 Pulse Ox 93 94 O2 Delivery Room Air Room Air Room Air 05/17/20 05/18/20 05/18/20 05/18/20 23:00 03:00 07:00 07:29 Temp 97.8 98.0 97.9 97.8 98.0 97.9 Pulse 82 80 57 Resp 20 18 16 B/P (MAP) 167/83 (111) 155/77 (103) 155/79 (104) Pulse Ox 92 90 93 94 O2 Delivery Room Air Room Air Room Air Room Air Intake and Output 05/17/20 05/17/20 05/18/20 15:00 23:00 07:00 Intake Total 240 ml 120 ml Output Total 850 ml Balance 240 ml 120 ml -850 ml MADISON COURTNEY MD May 18, 2020 08:50
[2020-05-18] MEDS: ASPIRIN ENTERIC COATED 81 MG TABLET.DR. PO SCH (09:07)
[2020-05-18] MEDS: LIDOCAINE (700MG/PATCH) PATCH. TD SCH (09:07)
[2020-05-18] MEDS: LACTOBACILLUS RHAMNOSUS GG 1 CAPSULE. PO SCH (09:08)
[2020-05-18] MEDS: CARVEDILOL 12.5 MG TABLET. PO SCH ×2 (09:08→17:27)
[2020-05-18] MEDS: CLOPIDOGREL BISULFATE 75 MG TABLET PO SCH (09:08)
--- NOTE | 2020-05-18 10:08 | PDOC ---
PROGRESS NOTES Subjective Subjective She admits continued back pain. Objective Objective Vital Signs Date Time Temp Pulse Resp B/P (MAP) Pulse Ox O2 Delivery O2 Flow Rate FiO2 05/18/20 09:08 57 155/79 05/18/20 07:29 94 Room Air 05/18/20 07:00 97.9 16 97.9 Intake and Output 05/18/20 07:00 Intake Total 360 ml Output Total 850 ml Balance -490 ml Intake Oral 360 ml Output Urine Total 850 ml # Voids 5 Physical Exam Physical Exam She is supine in bed with hips and knees in flexed position and she continues with tenderness to palpation over lumbar thoracic paraspinal muscles and painfully limited thoracic spine ROM. He r daughter at bedside asking for mri scan as earlier this year T7,T8 compression fractures were apparently not found until we performed mri scan and she reports of pacemaker was turned off before mri scan and started on after mri scan. Assessment Assessment Problems Medical Problems: (1) Urinary tract infection Status: Acute Plan Plan of Care To continue present physical therapy and still waiting for trial of PRINCE back support brace. Comment Review of Relevant I have reviewed the following items milena (where applicable) has been applied. Labs Laboratory Tests Test 05/16/20 12:25 05/16/20 22:01 05/17/20 03:22 05/17/20 07:15 White Blood Count 6.7 x10^3/uL (4.0-11.0) Red Blood Count 4.24 x10^6/uL (3.50-5.40) Hemoglobin 11.8 g/dL (12.0-15.5) Hematocrit 35.4 % (36.0-47.0) Mean Corpuscular Volume 84 fL (79-100) Mean Corpuscular Hemoglobin 28 pg (25-35) Mean Corpuscular Hemoglobin Concent 33 g/dL (31-37) Red Cell Distribution Width 18.4 % (11.5-14.5) Platelet Count 246 x10^3/uL (140-400) Neutrophils (%) (Auto) 63 % (31-73) Lymphocytes (%) (Auto) 25 % (24-48) Monocytes (%) (Auto) 7 % (0-9) Eosinophils (%) (Auto) 4 % (0-3) Basophils (%) (Auto) 1 % (0-3) Neutrophils # (Auto) 4.2 x10^3/uL (1.8-7.7) Lymphocytes # (Auto) 1.7 x10^3/uL (1.0-4.8) Monocytes # (Auto) 0.5 x10^3/uL (0.0-1.1) Eosinophils # (Auto) 0.3 x10^3/uL (0.0-0.7) Basophils # (Auto) 0.0 x10^3/uL (0.0-0.2) Urine Collection Type U cath Urine Color Yellow Urine Clarity Clear Urine pH 6.5 (<5.0-8.0) Urine Specific [place] 1.010 (1.000-1.030) Urine Protein >=300 mg/dL (NEG-TRACE) Urine Glucose (UA) Negative mg/dL (NEG) Urine Ketones (Stick) Negative mg/dL (NEG) Urine Blood Trace (NEG) Urine Nitrite Negative (NEG) Urine Bilirubin Negative (NEG) Urine Urobilinogen Dipstick 0.2 mg/dL (0.2 mg/dL) Urine Leukocyte Esterase Large (NEG) Urine RBC 0 /HPF (0-2) Urine WBC Tntc /HPF (0-4) Urine Squamous Epithelial Cells Mod /LPF Urine Bacteria Moderate /HPF (0-FEW) Urine Hyaline Casts Few /HPF Sodium Level 134 mmol/L (136-145) 138 mmol/L (136-145) Potassium Level 4.8 mmol/L (3.5-5.1) 4.4 mmol/L (3.5-5.1) Chloride Level 101 mmol/L (98-107) 106 mmol/L (98-107) Carbon Dioxide Level 21 mmol/L (21-32) 21 mmol/L (21-32) Anion Gap 12 (6-14) 11 (6-14) Blood Urea Nitrogen 32 mg/dL (7-20) 31 mg/dL (7-20) Creatinine 1.7 mg/dL (0.6-1.0) 1.6 mg/dL (0.6-1.0) Estimated GFR (Cockcroft-Gault) 28.4 30.5 BUN/Creatinine Ratio 19 (6-20) Glucose Level 130 mg/dL (70-99) 89 mg/dL (70-99) Calcium Level 8.6 mg/dL (8.5-10.1) 7.7 mg/dL (8.5-10.1) Total Bilirubin 0.2 mg/dL (0.2-1.0) Aspartate Amino Transf (AST/SGOT) 18 U/L (15-37) Alanine Aminotransferase (ALT/SGPT) 9 U/L (14-59) Alkaline Phosphatase 99 U/L (46-116) Total Protein 7.4 g/dL (6.4-8.2) Albumin 3.3 g/dL (3.4-5.0) Albumin/Globulin Ratio 0.8 (1.0-1.7) Glucose (Fingerstick) 115 mg/dL (70-99) 106 mg/dL (70-99) Test 05/17/20 11:45 05/17/20 16:41 05/17/20 20:46 05/18/20 07:26 Glucose (Fingerstick) 127 mg/dL (70-99) 120 mg/dL (70-99) 108 mg/dL (70-99) 102 mg/dL (70-99) Laboratory Tests Test 05/17/20 11:45 05/17/20 16:41 05/17/20 20:46 05/18/20 07:26 Glucose (Fingerstick) 127 mg/dL (70-99) 120 mg/dL (70-99) 108 mg/dL (70-99) 102 mg/dL (70-99) Microbiology 05/16/20 Urine Culture - Final, Complete 05/16/20 Antimicrobic Susceptibility - Final, Complete Medications Current Medications Fentanyl Citrate (Fentanyl 2ml Vial) 50 mcg 1X ONCE IV Last administered on 05/16/20at 12:56; Start 05/16/20 at 12:30; Stop 05/16/20 at 12:31; Status DC Ceftriaxone Sodium (Rocephin) 1 gm 1X ONCE IVP Last administered on 05/16/20at 14:29; Start 05/16/20 at 13:30; Stop 05/16/20 at 13:31; Status DC Sodium Chloride 1,000 ml @ 1,000 mls/hr 1X ONCE IV Last administered on 05/16/20at 13:30; Start 05/16/20 at 13:30; Stop 05/16/20 at 14:29; Status DC Sodium Chloride 1,000 ml @ 100 mls/hr Q10H IV Last administered on 05/17/20at 11:16; Start 05/16/20 at 13:58; Stop 05/17/20 at 13:57; Status DC Lidocaine (Lidoderm) 1 patch DAILY TD Last administered on 05/18/20at 09:07; Start 05/17/20 at 09:00 Miscellaneous (Lidoderm Patch Removal) 1 ea QHS MC ; Start 05/16/20 at 21:00 Acetaminophen (Tylenol) 650 mg PRN Q4HRS PRN PO TEMP OVER 100.4F OR MILD PAIN Last administered on 05/17/20at 09:01; Start 05/16/20 at 21:15 Amlodipine Besylate (Norvasc) 10 mg HS PO Last administered on 05/17/20at 21:00; Start 05/16/20 at 21:30 Aspirin (Ecotrin) 81 mg DAILYWBKFT PO Last administered on 05/18/20at 09:07; Start 05/17/20 at 08:00 Clopidogrel Bisulfate (Plavix) 75 mg DAILY PO Last administered on 05/18/20at 09:08; Start 05/17/20 at 09:00 Docusate Sodium (Colace) 100 mg PRN BID PRN PO CONSTIPATION; Start 05/16/20 at 21:15 Guaifenesin (Robitussin) 200 mg PRN Q4HRS PRN PO COUGH; Start 05/16/20 at 21:15 Lactobacillus Rhamnosus (Culturelle) 1 cap DAILY PO Last administered on 05/18/20at 09:08; Start 05/17/20 at 09:00 Levothyroxine Sodium (Synthroid) 25 mcg DAILY06 PO Last administered on 05/18/20at 06:36; Start 05/17/20 at 06:00 Pantoprazole Sodium (Protonix) 40 mg DAILYAC PO Last administered on 05/18/20 06:35; Start 05/17/20 at 07:30 Ropinirole HCl (Requip) 1 mg HS PO Last administered on 05/17/20at 20:46; Start 05/16/20 at 21:45 Non-Formulary Medication (Albuterol Sulfate (Albuterol Sulfate Conc Neb Soln)) 1 vial QID NEB ; Start 05/17/20 at 09:00; Status UNV Carvedilol (Coreg) 12.5 mg BIDWMEALS PO Last administered on 05/18/20at 09:08; Start 05/17/20 at 08:00 Polyethylene Glycol (miraLAX PACKET) 17 gm PRN DAILY PRN PO CONSTIPATION; Start 05/16/20 at 21:15 Psyllium Hydrophilic Mucilloid (Metamucil Fiber Packet) 1 pkt QHS PO Last administered on 05/17/20at 20:46; Start 05/16/20 at 21:45 Insulin Glargine (Lantus Syringe) 5 unit QHS SQ Last administered on 05/17/20at 20:47; Start 05/16/20 at 21:45 Insulin Human Lispro (HumaLOG) 0-7 UNITS TIDACHC SQ ; Start 05/16/20 at 21:45 Dextrose (Dextrose 50%-Water Syringe) 12.5 gm PRN Q15MIN PRN IV SEE COMMENTS; Start 05/16/20 at 21:15 Heparin Sodium (Porcine) (Heparin Sodium) 5,000 unit Q8HRS SQ Last administered on 05/18/20at 06:39; Start 05/16/20 at 22:00 Ceftriaxone Sodium (Rocephin) 1 gm Q24H IVP Last administered on 05/17/20at 15:35; Start 05/17/20 at 14:00 Albuterol Sulfate (Ventolin Neb Soln) 2.5 mg RTQID NEB Last administered on 05/18/20at 07:29; Start 05/17/20 at 08:00 Tramadol HCl (Ultram) 50 mg PRN Q6HRS PRN PO MODERATE PAIN, SEVERE PAIN Last administered on 05/17/20at 16:37; Start 05/17/20 at 13:30 Tizanidine HCl (Zanaflex) 4 mg PRN Q8HRS PRN PO MUSCLE SPASMS Last administered on 05/17/20at 13:39; Start 05/17/20 at 13:15 Active Scripts Active Cefdinir 300 Mg Capsule 1 Cap PO BID Dok (Docusate Sodium) 100 Mg Capsule 100 Mg PO PRN BID PRN 14 Days Guaifenesin 100 Mg/5 Ml Liquid 200 Mg PO PRN Q4HRS PRN 10 Days Tylenol (Acetaminophen) 325 Mg Tablet 650 Mg PO PRN Q4HRS PRN 14 Days Synthroid (Levothyroxine Sodium) 25 Mcg Tablet 25 Mcg PO DAILY06 30 Days Reported Glipizide 5 Mg Tablet 1 Tab PO BID Polyethylene Glycol 3350 2,500 Gm Powder 17 Gm PO DAILY PRN Culturelle (Lactobacillus Rhamnosus Gg) 1 Each Cap.sprink 1 Cap PO DAILY 30 Days Albuterol Sulfate Conc Neb Soln (Albuterol Sulfate) 2.5 Mg/0.5 Ml Vial.neb 1 Vial NEB QID Ropinirole Hcl 1 Mg Tablet 1 Mg PO HS Carvedilol 25 Mg Tablet 0.5 Tab PO BID Plavix (Clopidogrel Bisulfate) 75 Mg Tablet 1 Tab PO DAILY Aspir 81 (Aspirin) 81 Mg Tablet. 1 Tab PO DAILY Pantoprazole Sodium (Pantoprazole Sodium) 40 Mg Tablet.dr 40 Mg PO DAILY Amlodipine Besylate 10 Mg Tablet 10 Mg PO HS Vitals/I & O Vital Sign - Last 24 Hours 05/17/20 05/17/20 05/17/20 05/17/20 11:00 11:21 15:00 15:26 Temp 97.7 98.0 97.7 98.0 Pulse 82 74 Resp 18 18 B/P (MAP) 132/70 (90) 142/72 (95) Pulse Ox 92 92 O2 Delivery Room Air Room Air Room Air Room Air 05/17/20 05/17/20 05/17/20 05/17/20 16:37 16:37 17:49 19:00 Temp 98.1 98.1 Pulse 74 80 Resp 20 B/P (MAP) 142/72 163/76 (105) Pulse Ox 93 O2 Delivery Room Air Room Air Room Air 05/17/20 05/17/20 05/17/20 05/17/20 20:00 20:22 21:00 23:00 Temp 97.8 97.8 Pulse 80 82 Resp 20 B/P (MAP) 163/76 167/83 (111) Pulse Ox 94 92 O2 Delivery Room Air Room Air Room Air 05/18/20 05/18/20 05/18/20 05/18/20 03:00 07:00 07:29 09:08 Temp 98.0 97.9 98.0 97.9 Pulse 80 57 57 Resp 18 16 B/P (MAP) 155/77 (103) 155/79 (104) 155/79 Pulse Ox 90 93 94 O2 Delivery Room Air Room Air Room Air Intake and Output 05/17/20 05/17/20 05/18/20 15:00 23:00 07:00 Intake Total 240 ml 120 ml Output Total 850 ml Balance 240 ml 120 ml -850 ml Justicifation of Admission Dx: Justifications for Admission: Justification of Admission Dx: Yes Acute Renal Failure: RF Can't Be Managed Outpt DEISY RUSSO MD May 18, 2020 10:08
[2020-05-18 11:00] VITALS: BP 160/78
[2020-05-18 15:00] VITALS: BP 153/82
[2020-05-18] MEDS: cefTRIAXone IV Push 1 GM VIAL. IVP SCH (17:27)
[2020-05-18 19:00] VITALS: BP 159/85
[2020-05-18] MEDS: PATCH REMOVAL. MC SCH (21:00)
[2020-05-18] MEDS: PSYLLIUM HUSK (SUGAR FREE) 1 PKT PACKET PO SCH (21:25)
[2020-05-18] MEDS: amLODIPine BESYLATE 10 MG TABLET PO SCH (21:25)
[2020-05-18] MEDS: rOPINIRole 1 MG TABLET. PO SCH (21:25)
[2020-05-18] MEDS: INSULIN GLARGINE SYRINGE. SQ SCH (21:27)
[2020-05-18] MEDS: traMADol 50 MG TABLET PO PRN (21:29)
--- NOTE | 2020-05-18 22:02 | NUR ---
lidoderm patch from pt's back removed by this RN tonight.
[2020-05-18 23:00] VITALS: BP 147/75
[2020-05-19 03:07] VITALS: BP 141/82
[2020-05-19] MEDS: LEVOTHYROXINE 25 MCG TABLET. PO SCH (05:57)
[2020-05-19] MEDS: PANTOPRAZOLE 40 MG TABLET.DR. PO SCH (05:57)
[2020-05-19] MEDS: HEPARIN for SUB-Q USE 5,000 UNIT/ML VIAL. SQ SCH ×3 (05:58→21:29)
[2020-05-19] MEDS: tiZANidine 4 MG TABLET. PO PRN (06:12)
--- NOTE | 2020-05-19 07:06 | NUR ---
patient refused bath offered from NOC shift ,wanted her bath this am, day shift RN informed .
[2020-05-19] MEDS: ALBUTEROL SULFATE 2.5 MG/3 ML NEBU. NEB SCH ×4 (07:13→20:26)
[2020-05-19] MEDS: INSULIN LISPRO 300 UNITS/3 ML VIAL. SQ SCH ×4 (07:30→21:00)
[2020-05-19 07:47] VITALS: BP 112/83
[2020-05-19] MEDS: LACTOBACILLUS RHAMNOSUS GG 1 CAPSULE. PO SCH (08:25)
[2020-05-19] MEDS: CARVEDILOL 12.5 MG TABLET. PO SCH ×2 (08:25→17:18)
[2020-05-19] MEDS: ASPIRIN ENTERIC COATED 81 MG TABLET.DR. PO SCH (08:25)
[2020-05-19] MEDS: CLOPIDOGREL BISULFATE 75 MG TABLET PO SCH (08:25)
--- NOTE | 2020-05-19 08:35 | PDOC ---
PROGRESS NOTES Chief Complaint Chief Complaint A/P: Back pain - intractable, likely pyelonephritis with UTI symptoms, left sided. Will have PT for gait assessment once her pain is better controlled. T9, T10, T11 vertebral height loss - d/w IR to get bone scan to assess acuity of T10 compression fracture. TRENT - vasomotor nephropathy, will cont IVF, monitor creatinine [employer] in situ: RV pacing. x1 episode of 4 sec NSVT this morning. Interrogation revealed nml function and no associated arrhythmia related to her syncope DM2 - will place on insulin, hold sulfonylurea for TRENT and h/o hypoglycemia Chronic systolic/diatolic CHF - appears compensated currently with good UOP CAD: past stent and CABG in 2014, clinically stable H/O Bioprosthetic AVR H/o ischemic cardiomyopathy - EF at 55%, compensated Confusion - likely metabolic encephalopathy from acute UTI, will treat, There may be some mild cognitive impairment underlying FEN - ADA cardiac diet PPX - heparin DNR/DNI Dispo - inpatient for 2 midnights. May need to consider SNF History of Present Illness History of Present Illness Ms Sierra is an 85 yo F w/ PMHx ex-smoker, anemia, arrhythmia s/p PPM, CAD, CVA, DM2, HTN, PUD, COPD who presents to the emergency department with complaints of low back pain for the last 2 to 3 days. No injuries, but movement worsens it as well as pressure. Rest relieves it. She does have frequent UTIs, and has some incontinence issues, but no h/o fecal incontinence and she is aware when she has urinary incontinence. She denies any fever, cough, chest pain, palpitations, abdominal pain, nausea, vomiting, diarrhea, or bloody stools. She denies any numbness, or tingling of her extremities. Her pain is 10 out of 10 on the pain scale, she has tried taking Tylenol and ibuprofen for relief of her pain with no benefit. Her back pain is so severe she is unable to walk due to this. CT scans of the thoracic and lumbar regions show no acute pathology. WBC 6.7, Hb 11.8, Sodium 134, BUN of 32, and creatinine of 1.7, UA with large amount of leuk esterase too many to count white blood cells The patient was given 1 g of IV Rocephin and 500 mils of NS in the emergency department. 05/17: Back pain had initially improved, now worsened. Cr 1.6 now. Family worried she has another fracture. No CP or SOB. 05/18: Glucose in 100s. Still with back pain, but only if she moves. PRINCE brace apparently not covered. She thinks she had one previously. D/w son bedside her T10 fracture and possible T9 and T11 after my d/w IR Afebrile. UTI proteus mirabilis pansensitive. Still with back pain, glucose in 100s. No CP or SOB. Plan: Nuclear medicine bone scan to confirm acute/subacute T10 fracture and better assess T9 and T11. Treat UTI Hold plavix Vitals Vitals Vital Signs Date Time Temp Pulse Resp B/P (MAP) Pulse Ox O2 Delivery O2 Flow Rate FiO2 05/19/20 08:25 80 112/83 05/19/20 07:47 97.5 18 92 Room Air 97.5 Physical Exam General: Alert, Cooperative, moderate distress Lungs: Clear, Other Abdomen: Normal bowel sounds, Soft, No hepatosplenomegaly, No masses, Other (left CVA tenderness) Extremities: No clubbing, No cyanosis, No edema, Normal pulses, No tenderness/swelling Skin: No rashes, No breakdown, No significant lesion Labs LABS Laboratory Tests Test 05/18/20 11:35 05/18/20 17:05 05/18/20 21:00 05/19/20 07:31 Glucose (Fingerstick) 123 mg/dL (70-99) 128 mg/dL (70-99) 129 mg/dL (70-99) 119 mg/dL (70-99) Assessment and Plan Assessmemt and Plan Problems Medical Problems: (1) Urinary tract infection Status: Acute Comment Review of Relevant I have reviewed the following items milena (where applicable) has been applied. Labs Laboratory Tests Test 05/17/20 11:45 05/17/20 16:41 05/17/20 20:46 05/18/20 07:26 Glucose (Fingerstick) 127 mg/dL (70-99) 120 mg/dL (70-99) 108 mg/dL (70-99) 102 mg/dL (70-99) Test 05/18/20 11:35 05/18/20 17:05 05/18/20 21:00 05/19/20 07:31 Glucose (Fingerstick) 123 mg/dL (70-99) 128 mg/dL (70-99) 129 mg/dL (70-99) 119 mg/dL (70-99) Laboratory Tests Test 05/18/20 11:35 05/18/20 17:05 05/18/20 21:00 05/19/20 07:31 Glucose (Fingerstick) 123 mg/dL (70-99) 128 mg/dL (70-99) 129 mg/dL (70-99) 119 mg/dL (70-99) Microbiology 05/16/20 Urine Culture - Final, Complete 05/16/20 Antimicrobic Susceptibility - Final, Complete Medications Current Medications Fentanyl Citrate (Fentanyl 2ml Vial) 50 mcg 1X ONCE IV Last administered on 05/16/20at 12:56; Start 05/16/20 at 12:30; Stop 05/16/20 at 12:31; Status DC Ceftriaxone Sodium (Rocephin) 1 gm 1X ONCE IVP Last administered on 05/16/20at 14:29; Start 05/16/20 at 13:30; Stop 05/16/20 at 13:31; Status DC Sodium Chloride 1,000 ml @ 1,000 mls/hr 1X ONCE IV Last administered on 05/16/20at 13:30; Start 05/16/20 at 13:30; Stop 05/16/20 at 14:29; Status DC Sodium Chloride 1,000 ml @ 100 mls/hr Q10H IV Last administered on 05/17/20at 11:16; Start 05/16/20 at 13:58; Stop 05/17/20 at 13:57; Status DC Lidocaine (Lidoderm) 1 patch DAILY TD Last administered on 05/18/20at 09:07; Start 05/17/20 at 09:00 Miscellaneous (Lidoderm Patch Removal) 1 ea QHS MC ; Start 05/16/20 at 21:00 Acetaminophen (Tylenol) 650 mg PRN Q4HRS PRN PO TEMP OVER 100.4F OR MILD PAIN Last administered on 05/17/20at 09:01; Start 05/16/20 at 21:15 Amlodipine Besylate (Norvasc) 10 mg HS PO Last administered on 05/18/20at 21:25; Start 05/16/20 at 21:30 Aspirin (Ecotrin) 81 mg DAILYWBKFT PO Last administered on 05/19/20 08:25; Start 05/17/20 at 08:00 Clopidogrel Bisulfate (Plavix) 75 mg DAILY PO Last administered on 05/19/20 08:25; Start 05/17/20 at 09:00 Docusate Sodium (Colace) 100 mg PRN BID PRN PO CONSTIPATION (1st Choice); S tart 05/16/20 at 21:15 Guaifenesin (Robitussin) 200 mg PRN Q4HRS PRN PO COUGH; Start 05/16/20 at 21:15 Lactobacillus Rhamnosus (Culturelle) 1 cap DAILY PO Last administered on 05/19/20 08:25; Start 05/17/20 at 09:00 Levothyroxine Sodium (Synthroid) 25 mcg DAILY06 PO Last administered on 05/19/20 05:57; Start 05/17/20 at 06:00 Pantoprazole Sodium (Protonix) 40 mg DAILYAC PO Last administered on 05/19/20 05:57; Start 05/17/20 at 07:30 Ropinirole HCl (Requip) 1 mg HS PO Last administered on 05/18/20 21:25; Start 05/16/20 at 21:45 Non-Formulary Medication (Albuterol Sulfate (Albuterol Sulfate Conc Neb Soln)) 1 vial QID NEB ; Start 05/17/20 at 09:00; Status UNV Carvedilol (Coreg) 12.5 mg BIDWMEALS PO Last administered on 05/19/20 08:25; Start 05/17/20 at 08:00 Polyethylene Glycol (miraLAX PACKET) 17 gm PRN DAILY PRN PO CONSTIPATION (2nd Choice); Start 05/16/20 at 21:15 Psyllium Hydrophilic Mucilloid (Metamucil Fiber Packet) 1 pkt QHS PO Last administered on 05/18/20 21:25; Start 05/16/20 at 21:45 Insulin Glargine (Lantus Syringe) 5 unit QHS SQ Last administered on 05/18/20 21:27; Start 05/16/20 at 21:45 Insulin Human Lispro (HumaLOG) 0-7 UNITS TIDACHC SQ ; Start 05/16/20 at 21:45 Dextrose (Dextrose 50%-Water Syringe) 12.5 gm PRN Q15MIN PRN IV SEE COMMENTS; Start 05/16/20 at 21:15 Heparin Sodium (Porcine) (Heparin Sodium) 5,000 unit Q8HRS SQ Last administered on 05/19/20at 05:58; Start 05/16/20 at 22:00 Ceftriaxone Sodium (Rocephin) 1 gm Q24H IVP Last administered on 05/18/20at 17:27; Start 05/17/20 at 14:00 Albuterol Sulfate (Ventolin Neb Soln) 2.5 mg RTQID NEB Last administered on 05/19/20at 07:13; Start 05/17/20 at 08:00 Tramadol HCl (Ultram) 50 mg PRN Q6HRS PRN PO MODERATE PAIN, SEVERE PAIN Last administered on 05/18/20at 21:29; Start 05/17/20 at 13:30 Tizanidine HCl (Zanaflex) 4 mg PRN Q8HRS PRN PO MUSCLE SPASMS Last administered on 05/19/20at 06:12; Start 05/17/20 at 13:15 Active Scripts Active Cefdinir 300 Mg Capsule 1 Cap PO BID Dok (Docusate Sodium) 100 Mg Capsule 100 Mg PO PRN BID PRN 14 Days Guaifenesin 100 Mg/5 Ml Liquid 200 Mg PO PRN Q4HRS PRN 10 Days Tylenol (Acetaminophen) 325 Mg Tablet 650 Mg PO PRN Q4HRS PRN 14 Days Synthroid (Levothyroxine Sodium) 25 Mcg Tablet 25 Mcg PO DAILY06 30 Days Reported Glipizide 5 Mg Tablet 1 Tab PO BID Polyethylene Glycol 3350 2,500 Gm Powder 17 Gm PO DAILY PRN Culturelle (Lactobacillus Rhamnosus Gg) 1 Each Cap.sprink 1 Cap PO DAILY 30 Days Albuterol Sulfate Conc Neb Soln (Albuterol Sulfate) 2.5 Mg/0.5 Ml Vial.neb 1 Vial NEB QID Ropinirole Hcl 1 Mg Tablet 1 Mg PO HS Carvedilol 25 Mg Tablet 0.5 Tab PO BID Plavix (Clopidogrel Bisulfate) 75 Mg Tablet 1 Tab PO DAILY Aspir 81 (Aspirin) 81 Mg Tablet. 1 Tab PO DAILY Pantoprazole Sodium (Pantoprazole Sodium) 40 Mg Tablet. 40 Mg PO DAILY Amlodipine Besylate 10 Mg Tablet 10 Mg PO HS Vitals/I & O Vital Sign - Last 24 Hours 05/18/20 05/18/20 05/18/20 05/18/20 09:08 11:00 11:29 15:00 Temp 97.8 98.1 97.8 98.1 Pulse 57 80 80 Resp 18 16 B/P (MAP) 155/79 160/78 (105) 153/82 (105) Pulse Ox 94 96 95 O2 Delivery Room Air Room Air Room Air 05/18/20 05/18/20 05/18/20 05/18/20 15:15 17:27 18:22 19:00 Temp 98.0 98.0 Pulse 80 80 Resp 20 B/P (MAP) 153/82 159/85 (109) Pulse Ox 97 97 91 O2 Delivery Room Air Room Air Room Air 05/18/20 05/18/20 05/18/20 05/18/20 20:00 21:25 21:29 22:29 Pulse 80 Resp 20 20 B/P (MAP) 159/85 Pulse Ox 91 93 O2 Delivery Room Air Room Air Room Air 05/18/20 05/19/20 05/19/20 05/19/20 23:00 03:07 07:14 07:47 Temp 98.0 97.9 97.5 98.0 97.9 97.5 Pulse 79 85 80 Resp 18 18 18 B/P (MAP) 147/75 (99) 141/82 (101) 112/83 (93) Pulse Ox 93 92 92 O2 Delivery Room Air Room Air Room Air Room Air 05/19/20 08:25 Pulse 80 B/P (MAP) 112/83 Intake and Output 05/18/20 05/18/20 05/19/20 15:00 23:00 07:00 Intake Total 200 ml Output Total 150 ml Balance -150 ml 200 ml MADISON COURTNEY MD May 19, 2020 08:34
[2020-05-19] MEDS: LIDOCAINE (700MG/PATCH) PATCH. TD SCH (09:00)
[2020-05-19 10:07] VITALS: BP 140/79
[2020-05-19 15:27] VITALS: BP 149/82
[2020-05-19] MEDS: traMADol 50 MG TABLET PO PRN (17:18)
[2020-05-19] MEDS: cefTRIAXone IV Push 1 GM VIAL. IVP SCH (17:19)
[2020-05-19 19:00] VITALS: BP 161/78
[2020-05-19] MEDS: PATCH REMOVAL. MC SCH (21:00)
[2020-05-19] MEDS: PSYLLIUM HUSK (SUGAR FREE) 1 PKT PACKET PO SCH (21:00)
[2020-05-19] MEDS: rOPINIRole 1 MG TABLET. PO SCH (21:22)
[2020-05-19] MEDS: CEFDINIR 300 MG CAPSULE PO SCH (21:27)
[2020-05-19] MEDS: amLODIPine BESYLATE 10 MG TABLET PO SCH (21:28)
[2020-05-19] MEDS: INSULIN GLARGINE SYRINGE. SQ SCH (21:33)
[2020-05-19 23:02] VITALS: BP 155/76
[2020-05-20] MEDS: traMADol 50 MG TABLET PO PRN (01:38)
[2020-05-20] MEDS: tiZANidine 4 MG TABLET. PO PRN ×2 (01:38→21:09)
[2020-05-20 03:02] VITALS: BP 141/86
[2020-05-20 04:36] LABS: BASO % 1 % (0-3); EOS # 0.3 x10^3/uL (0.0-0.7); EOS % 6 % (0-3); HEMATOCRIT 31.9 % (36.0-47.0); HEMOGLOBIN 10.8 g/dL (12.0-15.5); LYMPH # 1.6 x10^3/uL (1.0-4.8); LYMPH % 32 % (24-48); MEAN CORPUSCULAR HEMOGLOBIN 28 pg (25-35); MEAN CORPUSCULAR HGB CONC 34 g/dL (31-37); MEAN CORPUSCULAR VOLUME 84 fL (79-100); MONO # 0.5 x10^3/uL (0.0-1.1); MONO % 10 % (0-9); NEUT # 2.6 x10^3/uL (1.8-7.7); NEUT % 51 % (31-73); PLATELET COUNT 249 x10^3/uL (140-400); RED BLOOD COUNT 3.81 x10^6/uL (3.50-5.40); RED CELL DISTRIBUTION WIDTH 18.4 % (11.5-14.5)
[2020-05-20 05:10] LABS: C-REACTIVE PROTEIN 3.1 mg/L (0-3.3); CALCIUM 8.8 mg/dL (8.5-10.1); CREATININE 1.5 mg/dL (0.6-1.0); GFR 32.8; POTASSIUM 4.4 mmol/L (3.5-5.1)
[2020-05-20] MEDS: HEPARIN for SUB-Q USE 5,000 UNIT/ML VIAL. SQ SCH ×3 (06:00→21:13)
[2020-05-20] MEDS: PANTOPRAZOLE 40 MG TABLET.DR. PO SCH (06:03)
[2020-05-20] MEDS: LEVOTHYROXINE 25 MCG TABLET. PO SCH (06:03)
--- NOTE | 2020-05-20 06:44 | NUR ---
Pt. refusing her heparin. States DOCKERY told her to hold all blood thinners and wants to speak to them.
[2020-05-20] MEDS: ALBUTEROL SULFATE 2.5 MG/3 ML NEBU. NEB SCH ×4 (06:49→20:31)
[2020-05-20 07:00] VITALS: BP 149/93
[2020-05-20] MEDS: INSULIN LISPRO 300 UNITS/3 ML VIAL. SQ SCH ×4 (07:26→21:00)
[2020-05-20] MEDS: ASPIRIN ENTERIC COATED 81 MG TABLET.DR. PO SCH (07:54)
[2020-05-20] MEDS: CARVEDILOL 12.5 MG TABLET. PO SCH ×2 (07:54→16:38)
[2020-05-20] MEDS: LIDOCAINE (700MG/PATCH) PATCH. TD SCH (07:55)
[2020-05-20] MEDS: LACTOBACILLUS RHAMNOSUS GG 1 CAPSULE. PO SCH (07:56)
--- NOTE | 2020-05-20 09:14 | PDOC ---
PROGRESS NOTES Subjective Subjective She admits continued back pain and she is refusing to get up. Objective Objective Vital Signs Date Time Temp Pulse Resp B/P (MAP) Pulse Ox O2 Delivery O2 Flow Rate FiO2 05/20/20 07:54 91 149/93 05/20/20 07:00 97.7 18 95 Room Air 97.7 Intake and Output 05/20/20 07:00 Intake Total 100 ml Balance 100 ml Intake Oral 100 ml # Voids 2 Physical Exam Physical Exam She is supine in bed and alert and continues with painfully limited lower thoracic spine ROM. No change in her neurological status. Assessment Assessment Problems Medical Problems: (1) Urinary tract infection Status: Acute Plan Plan of Care Waiting for bone scan. Comment Review of Relevant I have reviewed the following items milena (where applicable) has been applied. Labs Laboratory Tests Test 05/18/20 11:35 05/18/20 17:05 05/18/20 21:00 05/19/20 07:31 Glucose (Fingerstick) 123 mg/dL (70-99) 128 mg/dL (70-99) 129 mg/dL (70-99) 119 mg/dL (70-99) Test 05/19/20 11:46 05/19/20 12:27 05/19/20 16:49 05/19/20 20:35 Glucose (Fingerstick) 161 mg/dL (70-99) 174 mg/dL (70-99) 124 mg/dL (70-99) 161 mg/dL (70-99) Test 05/20/20 03:20 05/20/20 07:18 White Blood Count 5.0 x10^3/uL (4.0-11.0) Red Blood Count 3.81 x10^6/uL (3.50-5.40) Hemoglobin 10.8 g/dL (12.0-15.5) Hematocrit 31.9 % (36.0-47.0) Mean Corpuscular Volume 84 fL (79-100) Mean Corpuscular Hemoglobin 28 pg (25-35) Mean Corpuscular Hemoglobin Concent 34 g/dL (31-37) Red Cell Distribution Width 18.4 % (11.5-14.5) Platelet Count 249 x10^3/uL (140-400) Neutrophils (%) (Auto) 51 % (31-73) Lymphocytes (%) (Auto) 32 % (24-48) Monocytes (%) (Auto) 10 % (0-9) Eosinophils (%) (Auto) 6 % (0-3) Basophils (%) (Auto) 1 % (0-3) Neutrophils # (Auto) 2.6 x10^3/uL (1.8-7.7) Lymphocytes # (Auto) 1.6 x10^3/uL (1.0-4.8) Monocytes # (Auto) 0.5 x10^3/uL (0.0-1.1) Eosinophils # (Auto) 0.3 x10^3/uL (0.0-0.7) Basophils # (Auto) 0.0 x10^3/uL (0.0-0.2) Sodium Level 135 mmol/L (136-145) Potassium Level 4.4 mmol/L (3.5-5.1) Chloride Level 103 mmol/L (98-107) Carbon Dioxide Level 22 mmol/L (21-32) Anion Gap 10 (6-14) Blood Urea Nitrogen 22 mg/dL (7-20) Creatinine 1.5 mg/dL (0.6-1.0) Estimated GFR (Cockcroft-Gault) 32.8 Glucose Level 107 mg/dL (70-99) Calcium Level 8.8 mg/dL (8.5-10.1) C-Reactive Protein, Quantitative 3.1 mg/L (0-3.3) Glucose (Fingerstick) 103 mg/dL (70-99) Laboratory Tests Test 05/19/20 11:46 05/19/20 12:27 05/19/20 16:49 05/19/20 20:35 Glucose (Fingerstick) 161 mg/dL (70-99) 174 mg/dL (70-99) 124 mg/dL (70-99) 161 mg/dL (70-99) Test 05/20/20 03:20 05/20/20 07:18 White Blood Count 5.0 x10^3/uL (4.0-11.0) Red Blood Count 3.81 x10^6/uL (3.50-5.40) Hemoglobin 10.8 g/dL (12.0-15.5) Hematocrit 31.9 % (36.0-47.0) Mean Corpuscular Volume 84 fL (79-100) Mean Corpuscular Hemoglobin 28 pg (25-35) Mean Corpuscular Hemoglobin Concent 34 g/dL (31-37) Red Cell Distribution Width 18.4 % (11.5-14.5) Platelet Count 249 x10^3/uL (140-400) Neutrophils (%) (Auto) 51 % (31-73) Lymphocytes (%) (Auto) 32 % (24-48) Monocytes (%) (Auto) 10 % (0-9) Eosinophils (%) (Auto) 6 % (0-3) Basophils (%) (Auto) 1 % (0-3) Neutrophils # (Auto) 2.6 x10^3/uL (1.8-7.7) Lymphocytes # (Auto) 1.6 x10^3/uL (1.0-4.8) Monocytes # (Auto) 0.5 x10^3/uL (0.0-1.1) Eosinophils # (Auto) 0.3 x10^3/uL (0.0-0.7) Basophils # (Auto) 0.0 x10^3/uL (0.0-0.2) Sodium Level 135 mmol/L (136-145) Potassium Level 4.4 mmol/L (3.5-5.1) Chloride Level 103 mmol/L (98-107) Carbon Dioxide Level 22 mmol/L (21-32) Anion Gap 10 (6-14) Blood Urea Nitrogen 22 mg/dL (7-20) Creatinine 1.5 mg/dL (0.6-1.0) Estimated GFR (Cockcroft-Gault) 32.8 Glucose Level 107 mg/dL (70-99) Calcium Level 8.8 mg/dL (8.5-10.1) C-Reactive Protein, Quantitative 3.1 mg/L (0-3.3) Glucose (Fingerstick) 103 mg/dL (70-99) Microbiology 05/16/20 Urine Culture - Final, Complete 05/16/20 Antimicrobic Susceptibility - Final, Complete Medications Current Medications Fentanyl Citrate (Fentanyl 2ml Vial) 50 mcg 1X ONCE IV Last administered on 05/16/20at 12:56; Start 05/16/20 at 12:30; Stop 05/16/20 at 12:31; Status DC Ceftriaxone Sodium (Rocephin) 1 gm 1X ONCE IVP Last administered on 05/16/20at 14:29; Start 05/16/20 at 13:30; Stop 05/16/20 at 13:31; Status DC Sodium Chloride 1,000 ml @ 1,000 mls/hr 1X ONCE IV Last administered on 05/16/20at 13:30; Start 05/16/20 at 13:30; Stop 05/16/20 at 14:29; Status DC Sodium Chloride 1,000 ml @ 100 mls/hr Q10H IV Last administered on 05/17/20at 11:16; Start 05/16/20 at 13:58; Stop 05/17/20 at 13:57; Status DC Lidocaine (Lidoderm) 1 patch DAILY TD Last administered on 05/20/20at 07:55; Start 05/17/20 at 09:00 Miscellaneous (Lidoderm Patch Removal) 1 ea QHS MC ; Start 05/16/20 at 21:00 Acetaminophen (Tylenol) 650 mg PRN Q4HRS PRN PO TEMP OVER 100.4F OR MILD PAIN Last administered on 05/17/20at 09:01; Start 05/16/20 at 21:15 Amlodipine Besylate (Norvasc) 10 mg HS PO Last administered on 05/19/20at 21:28; Start 05/16/20 at 21:30 Aspirin (Ecotrin) 81 mg DAILYWBKFT PO Last administered on 05/20/20at 07:54; Start 05/17/20 at 08:00 Clopidogrel Bisulfate (Plavix) 75 mg DAILY PO Last administered on 05/19/20at 08:25; Start 05/17/20 at 09:00; Stop 05/19/20 at 14:26; Status DC Docusate Sodium (Colace) 100 mg PRN BID PRN PO CONSTIPATION (1st Choice); Start 05/16/20 at 21:15 Guaifenesin (Robitussin) 200 mg PRN Q4HRS PRN PO COUGH; Start 05/16/20 at 21:15 Lactobacillus Rhamnosus (Culturelle) 1 cap DAILY PO Last administered on 05/20/20at 07:56; Start 05/17/20 at 09:00 Levothyroxine Sodium (Synthroid) 25 mcg DAILY06 PO Last administered on 05/20/20 06:03; Start 05/17/20 at 06:00 Pantoprazole Sodium (Protonix) 40 mg DAILYAC PO Last administered on 05/20/20 06:03; Start 05/17/20 at 07:30 Ropinirole HCl (Requip) 1 mg HS PO Last administered on 05/19/20 21:22; Start 05/16/20 at 21:45 Non-Formulary Medication (Albuterol Sulfate (Albuterol Sulfate Conc Neb Soln)) 1 vial QID NEB ; Start 05/17/20 at 09:00; Status UNV Carvedilol (Coreg) 12.5 mg BIDWMEALS PO Last administered on 05/20/20 07:54; Start 05/17/20 at 08:00 Polyethylene Glycol (miraLAX PACKET) 17 gm PRN DAILY PRN PO CONSTIPATION (2nd Choice); Start 05/16/20 at 21:15 Psyllium Hydrophilic Mucilloid (Metamucil Fiber Packet) 1 pkt QHS PO Last administered on 05/18/20at 21:25; Start 05/16/20 at 21:45 Insulin Glargine (Lantus Syringe) 5 unit QHS SQ Last administered on 05/19/20at 21:33; Start 05/16/20 at 21:45 Insulin Human Lispro (HumaLOG) 0-7 UNITS TIDACHC SQ ; Start 05/16/20 at 21:45 Dextrose (Dextrose 50%-Water Syringe) 12.5 gm PRN Q15MIN PRN IV SEE COMMENTS; Start 05/16/20 at 21:15 Heparin Sodium (Porcine) (Heparin Sodium) 5,000 unit Q8HRS SQ Last administered on 05/19/20at 17:32; Start 05/16/20 at 22:00 Ceftriaxone Sodium (Rocephin) 1 gm Q24H IVP Last administered on 05/19/20at 1 7:19; Start 05/17/20 at 14:00; Stop 05/19/20 at 18:00; Status DC Albuterol Sulfate (Ventolin Neb Soln) 2.5 mg RTQID NEB Last administered on 05/20/20at 06:49; Start 05/17/20 at 08:00 Tramadol HCl (Ultram) 50 mg PRN Q6HRS PRN PO MODERATE PAIN, SEVERE PAIN Last administered on 05/20/20at 01:38; Start 05/17/20 at 13:30 Tizanidine HCl (Zanaflex) 4 mg PRN Q8HRS PRN PO MUSCLE SPASMS Last administered on 05/20/20at 01:38; Start 05/17/20 at 13:15 Cefdinir (Omnicef) 300 mg HS PO Last administered on 05/19/20at 21:27; Start 05/19/20 at 21:00 Active Scripts Active Cefdinir 300 Mg Capsule 1 Cap PO BID Dok (Docusate Sodium) 100 Mg Capsule 100 Mg PO PRN BID PRN 14 Days Guaifenesin 100 Mg/5 Ml Liquid 200 Mg PO PRN Q4HRS PRN 10 Days Tylenol (Acetaminophen) 325 Mg Tablet 650 Mg PO PRN Q4HRS PRN 14 Days Synthroid (Levothyroxine Sodium) 25 Mcg Tablet 25 Mcg PO DAILY06 30 Days Reported Glipizide 5 Mg Tablet 1 Tab PO BID Polyethylene Glycol 3350 2,500 Gm Powder 17 Gm PO DAILY PRN Culturelle (Lactobacillus Rhamnosus Gg) 1 Each Cap.sprink 1 Cap PO DAILY 30 Days Albuterol Sulfate Conc Neb Soln (Albuterol Sulfate) 2.5 Mg/0.5 Ml Vial.neb 1 Vial NEB QID Ropinirole Hcl 1 Mg Tablet 1 Mg PO HS Carvedilol 25 Mg Tablet 0.5 Tab PO BID Plavix (Clopidogrel Bisulfate) 75 Mg Tablet 1 Tab PO DAILY Aspir 81 (Aspirin) 81 Mg Tablet. 1 Tab PO DAILY Pantoprazole Sodium (Pantoprazole Sodium) 40 Mg Tablet. 40 Mg PO DAILY Amlodipine Besylate 10 Mg Tablet 10 Mg PO HS Vitals/I & O Vital Sign - Last 24 Hours 05/19/20 05/19/20 05/19/20 05/19/20 10:07 11:12 15:27 17:18 Temp 97.5 97.7 97.5 97.7 Pulse 80 77 77 Resp 20 20 B/P (MAP) 140/79 (99) 149/82 (104) 149/82 Pulse Ox 95 92 94 O2 Delivery Room Air Room Air Room Air 05/19/20 05/19/20 05/19/20 05/19/20 17:18 18:18 19:00 20:00 Temp 97.1 97.1 Pulse 80 Resp 20 20 18 B/P (MAP) 161/78 (105) Pulse Ox 92 O2 Delivery Room Air Room Air Room Air Room Air 05/19/20 05/19/20 05/19/20 05/20/20 20:26 21:28 23:02 01:38 Temp 98.2 98.2 Pulse 80 77 Resp 18 B/P (MAP) 161/78 155/76 (102) Pulse Ox 96 92 O2 Delivery Room Air Room Air Room Air 05/20/20 05/20/20 05/20/20 05/20/20 02:38 03:02 06:50 07:00 Temp 98.2 97.7 98.2 97.7 Pulse 80 91 Resp 18 18 B/P (MAP) 141/86 (104) 149/93 (111) Pulse Ox 93 93 95 O2 Delivery Room Air Room Air Room Air Room Air 05/20/20 07:54 Pulse 91 B/P (MAP) 149/93 Intake and Output 05/19/20 05/19/20 05/20/20 15:00 23:00 07:00 Intake Total 100 ml Balance 100 ml Justicifation of Admission Dx: Justifications for Admission: Justification of Admission Dx: Yes Acute Renal Failure: RF Can't Be Managed Outpt DEISY RUSSO MD May 20, 2020 09:14
--- NOTE | 2020-05-20 10:15 | NUR ---
MICHAEL following. Discussed with RN, pt having a bone scan today. RN anticipates possible discharge after bone scan. SW received phone call from [employer] [employer] advising they used to be pt's home health company but pt is now with [facility]. MICHAEL met with pt (no isolation precautions) to verify for a second time which home health company she uses, [facility] or [facility] - pt reported [facility] and would like to continue to use them. SW to fax clinicals and discharge orders to [facility] at discharge. RN notified.
[2020-05-20 11:00] VITALS: BP 132/86
--- NOTE | 2020-05-20 11:08 | PDOC ---
PROGRESS NOTES Chief Complaint Chief Complaint A/P: Back pain - intractable, likely pyelonephritis with UTI symptoms, left sided. Will have PT for gait assessment once her pain is better controlled. T9, T10, T11 vertebral height loss - d/w IR to get bone scan to assess acuity of T10 compression fracture. 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 x1 episode of 4 sec NSVT this morning. Interrogation revealed nml function and no associated arrhythmia related to her syncope DM2 - will place on insulin, hold sulfonylurea for TRENT and h/o hypoglycemia Chronic systolic/diatolic CHF - appears compensated currently with good UOP CAD: past stent and CABG in 2014, clinically stable H/O Bioprosthetic AVR H/o ischemic cardiomyopathy - EF at 55%, compensated Confusion - likely metabolic encephalopathy from acute UTI, will treat, There may be some mild cognitive impairment underlying FEN - ADA cardiac diet PPX - heparin DNR/DNI Dispo - inpatient for 2 midnights. May need to consider SNF History of Present Illness History of Present Illness Ms Sierra is an 85 yo F w/ PMHx ex-smoker, anemia, arrhythmia s/p PPM, CAD, CVA, DM2, HTN, PUD, COPD who presents to the emergency department with complaints of low back pain for the last 2 to 3 days. No injuries, but movement worsens it as well as pressure. Rest relieves it. She does have frequent UTIs, and has some incontinence issues, but no h/o fecal incontinence and she is aware when she has urinary incontinence. She denies any fever, cough, chest pain, palpitations, abdominal pain, nausea, vomiting, diarrhea, or bloody stools. She denies any numbness, or tingling of her extremities. Her pain is 10 out of 10 on the pain scale, she has tried taking Tylenol and ibuprofen for relief of her pain with no benefit. Her back pain is so severe she is unable to walk due to this. CT scans of the thoracic and lumbar regions show no acute pathology. WBC 6.7, Hb 11.8, Sodium 134, BUN of 32, and creatinine of 1.7, UA with large amount of leuk esterase too many to count white blood cells The patient was given 1 g of IV Rocephin and 500 mils of NS in the emergency department. 05/17: Back pain had initially improved, now worsened. Cr 1.6 now. Family worried she has another fracture. No CP or SOB. 05/18: Glucose in 100s. Still with back pain, but only if she moves. PRINCE brace apparently not covered. She thinks she had one previously. D/w son bedside her T10 fracture and possible T9 and T11 after my d/w IR 05/19: Afebrile. UTI proteus mirabilis pansensitive. Still with back pain, glucose in 100s. No CP or SOB. Afebrile, Still with intractable back pain. No CP or SOB. Plan: Nuclear medicine bone scan to confirm acute/subacute T10 fracture and better assess T9 and T11. Treat UTI Hold plavix Vitals Vitals Vital Signs Date Time Temp Pulse Resp B/P (MAP) Pulse Ox O2 Delivery O2 Flow Rate FiO2 05/20/20 08:00 Room Air 05/20/20 07:54 91 149/93 05/20/20 07:00 97.7 18 95 97.7 Physical Exam General: Alert, Cooperative, moderate distress Lungs: Clear, Other Abdomen: Normal bowel sounds, Soft, No hepatosplenomegaly, No masses, Other (left CVA tenderness) Extremities: No clubbing, No cyanosis, No edema, Normal pulses, No tenderness/swelling Skin: No rashes, No breakdown, No significant lesion Labs LABS Laboratory Tests Test 05/19/20 11:46 05/19/20 12:27 05/19/20 16:49 05/19/20 20:35 Glucose (Fingerstick) 161 mg/dL (70-99) 174 mg/dL (70-99) 124 mg/dL (70-99) 161 mg/dL (70-99) Test 05/20/20 03:20 05/20/20 07:18 White Blood Count 5.0 x10^3/uL (4.0-11.0) Red Blood Count 3.81 x10^6/uL (3.50-5.40) Hemoglobin 10.8 g/dL (12.0-15.5) Hematocrit 31.9 % (36.0-47.0) Mean Corpuscular Volume 84 fL (79-100) Mean Corpuscular Hemoglobin 28 pg (25-35) Mean Corpuscular Hemoglobin Concent 34 g/dL (31-37) Red Cell Distribution Width 18.4 % (11.5-14.5) Platelet Count 249 x10^3/uL (140-400) Neutrophils (%) (Auto) 51 % (31-73) Lymphocytes (%) (Auto) 32 % (24-48) Monocytes (%) (Auto) 10 % (0-9) Eosinophils (%) (Auto) 6 % (0-3) Basophils (%) (Auto) 1 % (0-3) Neutrophils # (Auto) 2.6 x10^3/uL (1.8-7.7) Lymphocytes # (Auto) 1.6 x10^3/uL (1.0-4.8) Monocytes # (Auto) 0.5 x10^3/uL (0.0-1.1) Eosinophils # (Auto) 0.3 x10^3/uL (0.0-0.7) Basophils # (Auto) 0.0 x10^3/uL (0.0-0.2) Sodium Level 135 mmol/L (136-145) Potassium Level 4.4 mmol/L (3.5-5.1) Chloride Level 103 mmol/L (98-107) Carbon Dioxide Level 22 mmol/L (21-32) Anion Gap 10 (6-14) Blood Urea Nitrogen 22 mg/dL (7-20) Creatinine 1.5 mg/dL (0.6-1.0) Estimated GFR (Cockcroft-Gault) 32.8 Glucose Level 107 mg/dL (70-99) Calcium Level 8.8 mg/dL (8.5-10.1) C-Reactive Protein, Quantitative 3.1 mg/L (0-3.3) Glucose (Fingerstick) 103 mg/dL (70-99) Assessment and Plan Assessmemt and Plan Problems Medical Problems: (1) Urinary tract infection Status: Acute Comment Review of Relevant I have reviewed the following items milena (where applicable) has been applied. Labs Laboratory Tests Test 05/18/20 11:35 05/18/20 17:05 05/18/20 21:00 05/19/20 07:31 Glucose (Fingerstick) 123 mg/dL (70-99) 128 mg/dL (70-99) 129 mg/dL (70-99) 119 mg/dL (70-99) Test 05/19/20 11:46 05/19/20 12:27 05/19/20 16:49 05/19/20 20:35 Glucose (Fingerstick) 161 mg/dL (70-99) 174 mg/dL (70-99) 124 mg/dL (70-99) 161 mg/dL (70-99) Test 05/20/20 03:20 05/20/20 07:18 White Blood Count 5.0 x10^3/uL (4.0-11.0) Red Blood Count 3.81 x10^6/uL (3.50-5.40) Hemoglobin 10.8 g/dL (12.0-15.5) Hematocrit 31.9 % (36.0-47.0) Mean Corpuscular Volume 84 fL (79-100) Mean Corpuscular Hemoglobin 28 pg (25-35) Mean Corpuscular Hemoglobin Concent 34 g/dL (31-37) Red Cell Distribution Width 18.4 % (11.5-14.5) Platelet Count 249 x10^3/uL (140-400) Neutrophils (%) (Auto) 51 % (31-73) Lymphocytes (%) (Auto) 32 % (24-48) Monocytes (%) (Auto) 10 % (0-9) Eosinophils (%) (Auto) 6 % (0-3) Basophils (%) (Auto) 1 % (0-3) Neutrophils # (Auto) 2.6 x10^3/uL (1.8-7.7) Lymphocytes # (Auto) 1.6 x10^3/uL (1.0-4.8) Monocytes # (Auto) 0.5 x10^3/uL (0.0-1.1) Eosinophils # (Auto) 0.3 x10^3/uL (0.0-0.7) Basophils # (Auto) 0.0 x10^3/uL (0.0-0.2) Sodium Level 135 mmol/L (136-145) Potassium Level 4.4 mmol/L (3.5-5.1) Chloride Level 103 mmol/L (98-107) Carbon Dioxide Level 22 mmol/L (21-32) Anion Gap 10 (6-14) Blood Urea Nitrogen 22 mg/dL (7-20) Creatinine 1.5 mg/dL (0.6-1.0) Estimated GFR (Cockcroft-Gault) 32.8 Glucose Level 107 mg/dL (70-99) Calcium Level 8.8 mg/dL (8.5-10.1) C-Reactive Protein, Quantitative 3.1 mg/L (0-3.3) Glucose (Fingerstick) 103 mg/dL (70-99) Laboratory Tests Test 05/19/20 11:46 05/19/20 12:27 05/19/20 16:49 05/19/20 20:35 Glucose (Fingerstick) 161 mg/dL (70-99) 174 mg/dL (70-99) 124 mg/dL (70-99) 161 mg/dL (70-99) Test 05/20/20 03:20 05/20/20 07:18 White Blood Count 5.0 x10^3/uL (4.0-11.0) Red Blood Count 3.81 x10^6/uL (3.50-5.40) Hemoglobin 10.8 g/dL (12.0-15.5) Hematocrit 31.9 % (36.0-47.0) Mean Corpuscular Volume 84 fL (79-100) Mean Corpuscular Hemoglobin 28 pg (25-35) Mean Corpuscular Hemoglobin Concent 34 g/dL (31-37) Red Cell Distribution Width 18.4 % (11.5-14.5) Platelet Count 249 x10^3/uL (140-400) Neutrophils (%) (Auto) 51 % (31-73) Lymphocytes (%) (Auto) 32 % (24-48) Monocytes (%) (Auto) 10 % (0-9) Eosinophils (%) (Auto) 6 % (0-3) Basophils (%) (Auto) 1 % (0-3) Neutrophils # (Auto) 2.6 x10^3/uL (1.8-7.7) Lymphocytes # (Auto) 1.6 x10^3/uL (1.0-4.8) Monocytes # (Auto) 0.5 x10^3/uL (0.0-1.1) Eosinophils # (Auto) 0.3 x10^3/uL (0.0-0.7) Basophils # (Auto) 0.0 x10^3/uL (0.0-0.2) Sodium Level 135 mmol/L (136-145) Potassium Level 4.4 mmol/L (3.5-5.1) Chloride Level 103 mmol/L (98-107) Carbon Dioxide Level 22 mmol/L (21-32) Anion Gap 10 (6-14) Blood Urea Nitrogen 22 mg/dL (7-20) Creatinine 1.5 mg/dL (0.6-1.0) Estimated GFR (Cockcroft-Gault) 32.8 Glucose Level 107 mg/dL (70-99) Calcium Level 8.8 mg/dL (8.5-10.1) C-Reactive Protein, Quantitative 3.1 mg/L (0-3.3) Glucose (Fingerstick) 103 mg/dL (70-99) Microbiology 05/16/20 Urine Culture - Final, Complete 05/16/20 Antimicrobic Susceptibility - Final, Complete Medications Current Medications Fentanyl Citrate (Fentanyl 2ml Vial) 50 mcg 1X ONCE IV Last administered on 05/16/20at 12:56; Start 05/16/20 at 12:30; Stop 05/16/20 at 12:31; Status DC Ceftriaxone Sodium (Rocephin) 1 gm 1X ONCE IVP Last administered on 05/16/20at 14:29; Start 05/16/20 at 13:30; Stop 05/16/20 at 13:31; Status DC Sodium Chloride 1,000 ml @ 1,000 mls/hr 1X ONCE IV Last administered on at 13:30; Start 05/16/20 at 13:30; Stop 05/16/20 at 14:29; Status DC Sodium Chloride 1,000 ml @ 100 mls/hr Q10H IV Last administered on 05/17/20at 11:16; Start 05/16/20 at 13:58; Stop 05/17/20 at 13:57; Status DC Lidocaine (Lidoderm) 1 patch DAILY TD Last administered on 05/20/20at 07:55; Start 05/17/20 at 09:00 Miscellaneous (Lidoderm Patch Removal) 1 ea QHS ; Start 05/16/20 at 21:00 Acetaminophen (Tylenol) 650 mg PRN Q4HRS PRN PO TEMP OVER 100.4F OR MILD PAIN Last administered on 05/17/20 09:01; Start 05/16/20 at 21:15 Amlodipine Besylate (Norvasc) 10 mg HS PO Last administered on 05/19/20 21:28; Start 05/16/20 at 21:30 Aspirin (Ecotrin) 81 mg DAILYWBKFT PO Last administered on 05/20/20 07:54; Start 05/17/20 at 08:00 Clopidogrel Bisulfate (Plavix) 75 mg DAILY PO Last administered on 05/19/20 08:25; Start 05/17/20 at 09:00; Stop 05/19/20 at 14:26; Status DC Docusate Sodium (Colace) 100 mg PRN BID PRN PO CONSTIPATION (1st Choice); Start 05/16/20 at 21:15 Guaifenesin (Robitussin) 200 mg PRN Q4HRS PRN PO COUGH; Start 05/16/20 at 21:15 Lactobacillus Rhamnosus (Culturelle) 1 cap DAILY PO Last administered on 05/20/20at 07:56; Start 05/17/20 at 09:00 Levothyroxine Sodium (Synthroid) 25 mcg DAILY06 PO Last administered on 05/20/20 06:03; Start 05/17/20 at 06:00 Pantoprazole Sodium (Protonix) 40 mg DAILYAC PO Last administered on 05/20/20 06:03; Start 05/17/20 at 07:30 Ropinirole HCl (Requip) 1 mg HS PO Last administered on 05/19/20 21:22; Start 05/16/20 at 21:45 Non-Formulary Medication (Albuterol Sulfate (Albuterol Sulfate Conc Neb Soln)) 1 vial QID NEB ; Start 05/17/20 at 09:00; Status UNV Carvedilol (Coreg) 12.5 mg BIDWMEALS PO Last administered on 05/20/20 07:54; Start 05/17/20 at 08:00 Polyethylene Glycol (miraLAX PACKET) 17 gm PRN DAILY PRN PO CONSTIPATION (2nd Choice); Start 05/16/20 at 21:15 Psyllium Hydrophilic Mucilloid (Metamucil Fiber Packet) 1 pkt QHS PO Last administered on 05/18/20at 21:25; Start 05/16/20 at 21:45 Insulin Glargine (Lantus Syringe) 5 unit QHS SQ Last administered on 05/19/20at 21:33; Start 05/16/20 at 21:45 Insulin Human Lispro (HumaLOG) 0-7 UNITS TIDACHC SQ ; Start 05/16/20 at 21:45 Dextrose (Dextrose 50%-Water Syringe) 12.5 gm PRN Q15MIN PRN IV SEE COMMENTS; Start 05/16/20 at 21:15 Heparin Sodium (Porcine) (Heparin Sodium) 5,000 unit Q8HRS SQ Last administered on 05/19/20at 17:32; Start 05/16/20 at 22:00 Ceftriaxone Sodium (Rocephin) 1 gm Q24H IVP Last administered on 05/19/20at 17:19; Start 05/17/20 at 14:00; Stop 05/19/20 at 18:00; Status DC Albuterol Sulfate (Ventolin Neb Soln) 2.5 mg RTQID NEB Last administered on 05/20/20at 06:49; Start 05/17/20 at 08:00 Tramadol HCl (Ultram) 50 mg PRN Q6HRS PRN PO MODERATE PAIN, SEVERE PAIN Last administered on 05/20/20at 01:38; Start 05/17/20 at 13:30 Tizanidine HCl (Zanaflex) 4 mg PRN Q8HRS PRN PO MUSCLE SPASMS Last administered on 05/20/20at 01:38; Start 05/17/20 at 13:15 Cefdinir (Omnicef) 300 mg HS PO Last administered on 05/19/20at 21:27; Start 05/19/20 at 21:00 Active Scripts Active Cefdinir 300 Mg Capsule 1 Cap PO BID Dok (Docusate Sodium) 100 Mg Capsule 100 Mg PO PRN BID PRN 14 Days Guaifenesin 100 Mg/5 Ml Liquid 200 Mg PO PRN Q4HRS PRN 10 Days Tylenol (Acetaminophen) 325 Mg Tablet 650 Mg PO PRN Q4HRS PRN 14 Days Synthroid (Levothyroxine Sodium) 25 Mcg Tablet 25 Mcg PO DAILY06 30 Days Reported Glipizide 5 Mg Tablet 1 Tab PO BID Polyethylene Glycol 3350 2,500 Gm Powder 17 Gm PO DAILY PRN Culturelle (Lactobacillus Rhamnosus Gg) 1 Each Cap.sprink 1 Cap PO DAILY 30 Days Albuterol Sulfate Conc Neb Soln (Albuterol Sulfate) 2.5 Mg/0.5 Ml Vial.neb 1 Vial NEB QID Ropinirole Hcl 1 Mg Tablet 1 Mg PO HS Carvedilol 25 Mg Tablet 0.5 Tab PO BID Plavix (Clopidogrel Bisulfate) 75 Mg Tablet 1 Tab PO DAILY Aspir 81 (Aspirin) 81 Mg Tablet. 1 Tab PO DAILY Pantoprazole Sodium (Pantoprazole Sodium) 40 Mg Tablet. 40 Mg PO DAILY Amlodipine Besylate 10 Mg Tablet 10 Mg PO HS Vitals/I & O Vital Sign - Last 24 Hours 05/19/20 05/19/20 05/19/20 05/19/20 11:12 15:27 17:18 17:18 Temp 97.7 97.7 Pulse 77 77 Resp 20 20 B/P (MAP) 149/82 (104) 149/82 Pulse Ox 92 94 O2 Delivery Room Air Room Air Room Air 05/19/20 05/19/20 05/19/20 05/19/20 18:18 19:00 20:00 20:26 Temp 97.1 97.1 Pulse 80 Resp 20 18 B/P (MAP) 161/78 (105) Pulse Ox 92 96 O2 Delivery Room Air Room Air Room Air Room Air 05/19/20 05/19/20 05/20/20 05/20/20 21:28 23:02 01:38 02:38 Temp 98.2 98.2 Pulse 80 77 Resp 18 B/P (MAP) 161/78 155/76 (102) Pulse Ox 92 O2 Delivery Room Air Room Air Room Air 05/20/20 05/20/20 05/20/20 05/20/20 03:02 06:50 07:00 07:54 Temp 98.2 97.7 98.2 97.7 Pulse 80 91 91 Resp 18 18 B/P (MAP) 141/86 (104) 149/93 (111) 149/93 Pulse Ox 93 93 95 O2 Delivery Room Air Room Air Room Air 05/20/20 08:00 O2 Delivery Room Air Intake and Output 05/19/20 05/19/20 05/20/20 15:00 23:00 07:00 Intake Total 100 ml Balance 100 ml MADISON COURTNEY MD May 20, 2020 11:07
--- NOTE | 2020-05-20 12:10 | RAD ---
Examination: BONE SCAN LIMITED History: Reason: T9,T10,T11 compression fractures likely acute or subacute...NM NOTIFIED / Spl. Instructions: / History: Comparison/Correlation: 05/16/2020 CT thoracic spine without contrast Findings: 25 mCi technetium 99m MDP was intravenously administered for purposes of whole body bone scintigraphy. Photopenia involving the left mid thoracic level corresponding to the patient's AICD noted. Intense uptake is evident involving the T8 and T10 vertebral bodies diffusely. No intense uptake otherwise seen involving the spine. Uptake involving the right shoulder compatible with degenerative changes noted. Nonspecific uptake involving the medial and lateral femoral condyles bilaterally also are seen and may represent degenerative change. Corresponding uptake involving the tibial plateau bilaterally however is not significant. Kidneys are identified to have radiotracer uptake. Radiotracer in the urinary bladder is seen. Impression: Intense uptake at T10 noted diffusely. Possibility of this representing acute or subacute fracture is raised. Intense uptake at T8 also seen and vertebroplasty is noted at this level. Electronically signed by: Matthew Mann MD (05/20/2020 12:07 PM) [id number]
--- NOTE | 2020-05-20 13:23 | PDOC2 ---
INTERV RADIOLOGY CONSULT INPT Date of Consult 05/20/20 Reason for Consult Back pain, T10 fracture Referring Physician Dr. Madsen Identification/Chief Complaint Mid back pain after twisting in kitchen last week Current Medications Current Medications Fentanyl Citrate (Fentanyl 2ml Vial) 50 mcg 1X ONCE IV Last administered on 05/16/20at 12:56; Start 05/16/20 at 12:30; Stop 05/16/20 at 12:31; Status DC Ceftriaxone Sodium (Rocephin) 1 gm 1X ONCE IVP Last administered on 05/16/20at 14:29; Start 05/16/20 at 13:30; Stop 05/16/20 at 13:31; Status DC Sodium Chloride 1,000 ml @ 1,000 mls/hr 1X ONCE IV Last administered on 05/16/20at 13:30; Start 05/16/20 at 13:30; Stop 05/16/20 at 14:29; Status DC Sodium Chloride 1,000 ml @ 100 mls/hr Q10H IV Last administered on 05/17/20at 11:16; Start 05/16/20 at 13:58; Stop 05/17/20 at 13:57; Status DC Lidocaine (Lidoderm) 1 patch DAILY TD Last administered on 05/20/20at 07:55; Start 05/17/20 at 09:00 Miscellaneous (Lidoderm Patch Removal) 1 ea QHS MC ; Start 05/16/20 at 21:00 Acetaminophen (Tylenol) 650 mg PRN Q4HRS PRN PO TEMP OVER 100.4F OR MILD PAIN Last administered on 05/17/20at 09:01; Start 05/16/20 at 21:15 Amlodipine Besylate (Norvasc) 10 mg HS PO Last administered on 05/19/20at 21:28; Start 05/16/20 at 21:30 Aspirin (Ecotrin) 81 mg DAILYWBKFT PO Last administered on 05/20/20at 07:54; Start 05/17/20 at 08:00; Stop 05/20/20 at 13:06; Status DC Clopidogrel Bisulfate (Plavix) 75 mg DAILY PO Last administered on 05/19/20at 08:25; Start 05/17/20 at 09:00; Stop 05/19/20 at 14:26; Status DC Docusate Sodium (Colace) 100 mg PRN BID PRN PO CONSTIPATION (1st Choice); Start 05/16/20 at 21:15 Guaifenesin (Robitussin) 200 mg PRN Q4HRS PRN PO COUGH; Start 05/16/20 at 21:15 Lactobacillus Rhamnosus (Culturelle) 1 cap DAILY PO Last administered on 05/20/20 07:56; Start 05/17/20 at 09:00 Levothyroxine Sodium (Synthroid) 25 mcg DAILY06 PO Last administered on 05/20/20 06:03; Start 05/17/20 at 06:00 Pantoprazole Sodium (Protonix) 40 mg DAILYAC PO Last administered on 05/20/20 06:03; Start 05/17/20 at 07:30 Ropinirole HCl (Requip) 1 mg HS PO Last administered on 05/19/20at 21:22; Start 05/16/20 at 21:45 Non-Formulary Medication (Albuterol Sulfate (Albuterol Sulfate Conc Neb Soln)) 1 vial QID NEB ; Start 05/17/20 at 09:00; Status UNV Carvedilol (Coreg) 12.5 mg BIDWMEALS PO Last administered on 05/20/20at 07:54; Start 05/17/20 at 08:00 Polyethylene Glycol (miraLAX PACKET) 17 gm PRN DAILY PRN PO CONSTIPATION (2nd Choice); Start 05/16/20 at 21:15 Psyllium Hydrophilic Mucilloid (Metamucil Fiber Packet) 1 pkt QHS PO Last administered on 05/18/20at 21:25; Start 05/16/20 at 21:45 Insulin Glargine (Lantus Syringe) 5 unit QHS SQ Last administered on 05/19/20at 21:33; Start 05/16/20 at 21:45 Insulin Human Lispro (HumaLOG) 0-7 UNITS TIDACHC SQ ; Start 05/16/20 at 21:45 Dextrose (Dextrose 50%-Water Syringe) 12.5 gm PRN Q15MIN PRN IV SEE COMMENTS; Start 05/16/20 at 21:15 Heparin Sodium (Porcine) (Heparin Sodium) 5,000 unit Q8HRS SQ Last administered on 05/19/20at 17:32; Start 05/16/20 at 22:00 Ceftriaxone Sodium (Rocephin) 1 gm Q24H IVP Last administered on 05/19/20at 17:19; Start 05/17/20 at 14:00; Stop 05/19/20 at 18:00; Status DC Albuterol Sulfate (Ventolin Neb Soln) 2.5 mg RTQID NEB Last administered on 05/20/20at 06:49; Start 05/17/20 at 08:00 Tramadol HCl (Ultram) 50 mg PRN Q6HRS PRN PO MODERATE PAIN, SEVERE PAIN Last administered on 05/20/20at 01:38; Start 05/17/20 at 13:30 Tizanidine HCl (Zanaflex) 4 mg PRN Q8HRS PRN PO MUSCLE SPASMS Last administered on 05/20/20at 01:38; Start 05/17/20 at 13:15 Cefdinir (Omnicef) 300 mg HS PO Last administered on 05/19/20at 21:27; Start 05/19/20 at 21:00 Active Scripts Active Cefdinir 300 Mg Capsule 1 Cap PO BID Dok (Docusate Sodium) 100 Mg Capsule 100 Mg PO PRN BID PRN 14 Days Guaifenesin 100 Mg/5 Ml Liquid 200 Mg PO PRN Q4HRS PRN 10 Days Tylenol (Acetaminophen) 325 Mg Tablet 650 Mg PO PRN Q4HRS PRN 14 Days Synthroid (Levothyroxine Sodium) 25 Mcg Tablet 25 Mcg PO DAILY06 30 Days Reported Glipizide 5 Mg Tablet 1 Tab PO BID Polyethylene Glycol 3350 2,500 Gm Powder 17 Gm PO DAILY PRN Culturelle (Lactobacillus Rhamnosus Gg) 1 Each Cap.sprink 1 Cap PO DAILY 30 Days Albuterol Sulfate Conc Neb Soln (Albuterol Sulfate) 2.5 Mg/0.5 Ml Vial.neb 1 V ial NEB QID Ropinirole Hcl 1 Mg Tablet 1 Mg PO HS Carvedilol 25 Mg Tablet 0.5 Tab PO BID Plavix (Clopidogrel Bisulfate) 75 Mg Tablet 1 Tab PO DAILY Aspir 81 (Aspirin) 81 Mg Tablet.dr 1 Tab PO DAILY Pantoprazole Sodium (Pantoprazole Sodium) 40 Mg Tablet. 40 Mg PO DAILY Amlodipine Besylate 10 Mg Tablet 10 Mg PO HS Allergies Coded Allergies: No Known Drug Allergies (Unverified , 12/17/19) Vitals Vital Signs Date Time Temp Pulse Resp B/P (MAP) Pulse Ox O2 Delivery O2 Flow Rate FiO2 05/20/20 11:00 98.2 90 18 132/86 (101) 95 Room Air 98.2 Labs Laboratory Tests Test 05/18/20 17:05 05/18/20 21:00 05/19/20 07:31 05/19/20 11:46 Glucose (Fingerstick) 128 mg/dL (70-99) 129 mg/dL (70-99) 119 mg/dL (70-99) 161 mg/dL (70-99) Test 05/19/20 12:27 05/19/20 16:49 05/19/20 20:35 05/20/20 03:20 Glucose (Fingerstick) 174 mg/dL (70-99) 124 mg/dL (70-99) 161 mg/dL (70-99) White Blood Count 5.0 x10^3/uL (4.0-11.0) Red Blood Count 3.81 x10^6/uL (3.50-5.40) Hemoglobin 10.8 g/dL (12.0-15.5) Hematocrit 31.9 % (36.0-47.0) Mean Corpuscular Volume 84 fL (79-100) Mean Corpuscular Hemoglobin 28 pg (25-35) Mean Corpuscular Hemoglobin Concent 34 g/dL (31-37) Red Cell Distribution Width 18.4 % (11.5-14.5) Platelet Count 249 x10^3/uL (140-400) Neutrophils (%) (Auto) 51 % (31-73) Lymphocytes (%) (Auto) 32 % (24-48) Monocytes (%) (Auto) 10 % (0-9) Eosinophils (%) (Auto) 6 % (0-3) Basophils (%) (Auto) 1 % (0-3) Neutrophils # (Auto) 2.6 x10^3/uL (1.8-7.7) Lymphocytes # (Auto) 1.6 x10^3/uL (1.0-4.8) Monocytes # (Auto) 0.5 x10^3/uL (0.0-1.1) Eosinophils # (Auto) 0.3 x10^3/uL (0.0-0.7) Basophils # (Auto) 0.0 x10^3/uL (0.0-0.2) Sodium Level 135 mmol/L (136-145) Potassium Level 4.4 mmol/L (3.5-5.1) Chloride Level 103 mmol/L (98-107) Carbon Dioxide Level 22 mmol/L (21-32) Anion Gap 10 (6-14) Blood Urea Nitrogen 22 mg/dL (7-20) Creatinine 1.5 mg/dL (0.6-1.0) Estimated GFR (Cockcroft-Gault) 32.8 Glucose Level 107 mg/dL (70-99) Calcium Level 8.8 mg/dL (8.5-10.1) C-Reactive Protein, Quantitative 3.1 mg/L (0-3.3) Test 05/20/20 07:18 05/20/20 11:30 Glucose (Fingerstick) 103 mg/dL (70-99) 102 mg/dL (70-99) Laboratory Tests Test 05/19/20 16:49 05/19/20 20:35 05/20/20 03:20 05/20/20 07:18 Glucose (Fingerstick) 124 mg/dL (70-99) 161 mg/dL (70-99) 103 mg/dL (70-99) White Blood Count 5.0 x10^3/uL (4.0-11.0) Red Blood Count 3.81 x10^6/uL (3.50-5.40) Hemoglobin 10.8 g/dL (12.0-15.5) Hematocrit 31.9 % (36.0-47.0) Mean Corpuscular Volume 84 fL (79-100) Mean Corpuscular Hemoglobin 28 pg (25-35) Mean Corpuscular Hemoglobin Concent 34 g/dL (31-37) Red Cell Distribution Width 18.4 % (11.5-14.5) Platelet Count 249 x10^3/uL (140-400) Neutrophils (%) (Auto) 51 % (31-73) Lymphocytes (%) (Auto) 32 % (24-48) Monocytes (%) (Auto) 10 % (0-9) Eosinophils (%) (Auto) 6 % (0-3) Basophils (%) (Auto) 1 % (0-3) Neutrophils # (Auto) 2.6 x10^3/uL (1.8-7.7) Lymphocytes # (Auto) 1.6 x10^3/uL (1.0-4.8) Monocytes # (Auto) 0.5 x10^3/uL (0.0-1.1) Eosinophils # (Auto) 0.3 x10^3/uL (0.0-0.7) Basophils # (Auto) 0.0 x10^3/uL (0.0-0.2) Sodium Level 135 mmol/L (136-145) Potassium Level 4.4 mmol/L (3.5-5.1) Chloride Level 103 mmol/L (98-107) Carbon Dioxide Level 22 mmol/L (21-32) Anion Gap 10 (6-14) Blood Urea Nitrogen 22 mg/dL (7-20) Creatinine 1.5 mg/dL (0.6-1.0) Estimated GFR (Cockcroft-Gault) 32.8 Glucose Level 107 mg/dL (70-99) Calcium Level 8.8 mg/dL (8.5-10.1) C-Reactive Protein, Quantitative 3.1 mg/L (0-3.3) Test 05/20/20 11:30 Glucose (Fingerstick) 102 mg/dL (70-99) Assessment/Plan IR was consulted for patient's pain and T10 fracture seen on NM bone scan. Pat ient has prior T7 and T8 fractures with inflammation seen at T8 on bone scan. The inflammation at T8 could relate to acute on subacute or chronic fracture at that level versus residual inflammation from prior fracture, but this level has already been treated so no IR option is available for T8. Inflammation also seen at T10 indicating acute or subacute fracture at that level and minimal height loss seen on CT. Patient is a candidate for kyphoplasty at the T10 level, but she is on aspirin and Plavix. Given the non-emergent nature of the procedure, Plavix and aspirin hold is recommended for 5 days prior to planned procedure if possible. This was discussed with Dr. Madsen. Patient got a Plavix dose yesterday morning. Considering the holiday, the earliest we could do the procedure is next Sunday 05/27. This could be done as an inpatient or as an outpatient procedure. DESHAWN Hightower MD May 20, 2020 13:23
[2020-05-20 15:00] VITALS: BP 130/78
[2020-05-20 19:00] VITALS: BP 153/85
[2020-05-20] MEDS: PSYLLIUM HUSK (SUGAR FREE) 1 PKT PACKET PO SCH (21:00)
[2020-05-20] MEDS: PATCH REMOVAL. MC SCH (21:00)
[2020-05-20] MEDS: rOPINIRole 1 MG TABLET. PO SCH (21:08)
[2020-05-20] MEDS: amLODIPine BESYLATE 10 MG TABLET PO SCH (21:09)
[2020-05-20] MEDS: CEFDINIR 300 MG CAPSULE PO SCH (21:09)
[2020-05-20] MEDS: INSULIN GLARGINE SYRINGE. SQ SCH (21:14)
--- NOTE | 2020-05-20 21:28 | NUR ---
Lidoderm patch not on patient this evening.
[2020-05-20 23:00] VITALS: BP 150/78
[2020-05-21 03:00] VITALS: BP 144/73
[2020-05-21] MEDS: traMADol 50 MG TABLET PO PRN ×2 (03:02→07:50)
[2020-05-21] MEDS: LEVOTHYROXINE 25 MCG TABLET. PO SCH (06:09)
[2020-05-21] MEDS: PANTOPRAZOLE 40 MG TABLET.DR. PO SCH (06:09)
[2020-05-21] MEDS: HEPARIN for SUB-Q USE 5,000 UNIT/ML VIAL. SQ SCH (06:13)
[2020-05-21 06:50] VITALS: BP 133/74
[2020-05-21] MEDS: ALBUTEROL SULFATE 2.5 MG/3 ML NEBU. NEB SCH ×2 (07:26→11:11)
[2020-05-21] MEDS: INSULIN LISPRO 300 UNITS/3 ML VIAL. SQ SCH ×2 (07:30→11:23)
[2020-05-21] MEDS: LIDOCAINE (700MG/PATCH) PATCH. TD SCH (07:50)
[2020-05-21] MEDS: CARVEDILOL 12.5 MG TABLET. PO SCH (07:50)
[2020-05-21] MEDS: LACTOBACILLUS RHAMNOSUS GG 1 CAPSULE. PO SCH (07:51)
--- NOTE | 2020-05-21 09:30 | NUR ---
MICHAEL following. Discussed with RN, pt scheduled for a procedure on Wednesday (05/27/2020). Physician note states could be done inpatient or outpatient. MICHAEL spoke with Dr. Barboza, requesting home health orders if discharging today due to Wednesday being a week away and pt is not needing anything else whilst admitted. SW awaiting confirmation of discharge.
--- NOTE | 2020-05-21 09:41 | PDOC ---
PROGRESS NOTES Subjective Subjective No new complaints. Objective Objective Vital Signs Date Time Temp Pulse Resp B/P (MAP) Pulse Ox O2 Delivery O2 Flow Rate FiO2 05/21/20 07:54 Room Air 05/21/20 07:50 16 05/21/20 07:50 76 133/74 05/21/20 06:50 97.7 93 97.7 Intake and Output 05/21/20 07:00 Intake Total 960 ml Balance 960 ml Intake Oral 960 ml # Voids 6 Physical Exam Physical Exam She is alert and with PRINCE back brace on she got up and walked at bedside with roller walker under supervision and she requires assistance with donning brace and with bed mobility. Assessment Assessment Problems Medical Problems: (1) Urinary tract infection Status: Acute Plan Plan of Care Hopefully home after instructing her family in donning and doffing back brace and to be seen for T10 kyphoplasty on out patient basis. Comment Review of Relevant I have reviewed the following items milena (where applicable) has been applied. Labs Laboratory Tests Test 05/19/20 11:46 05/19/20 12:27 05/19/20 16:49 05/19/20 20:35 Glucose (Fingerstick) 161 mg/dL (70-99) 174 mg/dL (70-99) 124 mg/dL (70-99) 161 mg/dL (70-99) Test 05/20/20 03:20 05/20/20 07:18 05/20/20 11:30 05/20/20 14:24 White Blood Count 5.0 x10^3/uL (4.0-11.0) Red Blood Count 3.81 x10^6/uL (3.50-5.40) Hemoglobin 10.8 g/dL (12.0-15.5) Hematocrit 31.9 % (36.0-47.0) Mean Corpuscular Volume 84 fL (79-100) Mean Corpuscular Hemoglobin 28 pg (25-35) Mean Corpuscular Hemoglobin Concent 34 g/dL (31-37) Red Cell Distribution Width 18.4 % (11.5-14.5) Platelet Count 249 x10^3/uL (140-400) Neutrophils (%) (Auto) 51 % (31-73) Lymphocytes (%) (Auto) 32 % (24-48) Monocytes (%) (Auto) 10 % (0-9) Eosinophils (%) (Auto) 6 % (0-3) Basophils (%) (Auto) 1 % (0-3) Neutrophils # (Auto) 2.6 x10^3/uL (1.8-7.7) Lymphocytes # (Auto) 1.6 x10^3/uL (1.0-4.8) Monocytes # (Auto) 0.5 x10^3/uL (0.0-1.1) Eosinophils # (Auto) 0.3 x10^3/uL (0.0-0.7) Basophils # (Auto) 0.0 x10^3/uL (0.0-0.2) Sodium Level 135 mmol/L (136-145) Potassium Level 4.4 mmol/L (3.5-5.1) Chloride Level 103 mmol/L (98-107) Carbon Dioxide Level 22 mmol/L (21-32) Anion Gap 10 (6-14) Blood Urea Nitrogen 22 mg/dL (7-20) Creatinine 1.5 mg/dL (0.6-1.0) Estimated GFR (Cockcroft-Gault) 32.8 Glucose Level 107 mg/dL (70-99) Calcium Level 8.8 mg/dL (8.5-10.1) C-Reactive Protein, Quantitative 3.1 mg/L (0-3.3) Glucose (Fingerstick) 103 mg/dL (70-99) 102 mg/dL (70-99) 141 mg/dL (70-99) Test 05/20/20 16:35 05/20/20 20:21 05/21/20 06:54 Glucose (Fingerstick) 116 mg/dL (70-99) 144 mg/dL (70-99) 78 mg/dL (70-99) Laboratory Tests Test 05/20/20 11:30 05/20/20 14:24 05/20/20 16:35 05/20/20 20:21 Glucose (Fingerstick) 102 mg/dL (70-99) 141 mg/dL (70-99) 116 mg/dL (70-99) 144 mg/dL (70-99) Test 05/21/20 06:54 Glucose (Fingerstick) 78 mg/dL (70-99) Microbiology 05/16/20 Urine Culture - Final, Complete 05/16/20 Antimicrobic Susceptibility - Final, Complete Medications Current Medications Fentanyl Citrate (Fentanyl 2ml Vial) 50 mcg 1X ONCE IV Last administered on 05/16/20at 12:56; Start 05/16/20 at 12:30; Stop 05/16/20 at 12:31; Status DC Ceftriaxone Sodium (Rocephin) 1 gm 1X ONCE IVP Last administered on 05/16/20at 14:29; Start 05/16/20 at 13:30; Stop 05/16/20 at 13:31; Status DC Sodium Chloride 1,000 ml @ 1,000 mls/hr 1X ONCE IV Last administered on 05/16/20at 13:30; Start 05/16/20 at 13:30; Stop 05/16/20 at 14:29; Status DC Sodium Chloride 1,000 ml @ 100 mls/hr Q10H IV Last administered on 05/17/20at 11:16; Start 05/16/20 at 13:58; Stop 05/17/20 at 13:57; Status DC Lidocaine (Lidoderm) 1 patch DAILY TD Last administered on 05/21/20at 07:50; Start 05/17/20 at 09:00 Miscellaneous (Lidoderm Patch Removal) 1 ea QHS MC ; Start 05/16/20 at 21:00 Acetaminophen (Tylenol) 650 mg PRN Q4HRS PRN PO TEMP OVER 100.4F OR MILD PAIN Last administered on 05/17/20at 09:01; Start 05/16/20 at 21:15 Amlodipine Besylate (Norvasc) 10 mg HS PO Last administered on 05/20/20at 21:09; Start 05/16/20 at 21:30 Aspirin (Ecotrin) 81 mg DAILYWBKFT PO Last administered on 05/20/20at 07:54; Start 05/17/20 at 08:00; Stop 05/20/20 at 13:06; Status DC Clopidogrel Bisulfate (Plavix) 75 mg DAILY PO Last administered on 05/19/20at 08:25; Start 05/17/20 at 09:00; Stop 05/19/20 at 14:26; Status DC Docusate Sodium (Colace) 100 mg PRN BID PRN PO CONSTIPATION (1st Choice); Start 05/16/20 at 21:15 Guaifenesin (Robitussin) 200 mg PRN Q4HRS PRN PO COUGH; Start 05/16/20 at 21:15 Lactobacillus Rhamnosus (Culturelle) 1 cap DAILY PO Last administered on 05/21/20at 07:51; Start 05/17/20 at 09:00 Levothyroxine Sodium (Synthroid) 25 mcg DAILY06 PO Last administered on 05/21/20 06:09; Start 05/17/20 at 06:00 Pantoprazole Sodium (Protonix) 40 mg DAILYAC PO Last administered on 05/21/20 06:09; Start 05/17/20 at 07:30 Ropinirole HCl (Requip) 1 mg HS PO Last administered on 05/20/20 21:08; Start 05/16/20 at 21:45 Non-Formulary Medication (Albuterol Sulfate (Albuterol Sulfate Conc Neb Soln)) 1 vial QID NEB ; Start 05/17/20 at 09:00; Status UNV Carvedilol (Coreg) 12.5 mg BIDWMEALS PO Last administered on 05/21/20at 07:50; Start 05/17/20 at 08:00 Polyethylene Glycol (miraLAX PACKET) 17 gm PRN DAILY PRN PO CONSTIPATION (2nd Choice); Start 05/16/20 at 21:15 Psyllium Hydrophilic Mucilloid (Metamucil Fiber Packet) 1 pkt QHS PO Last administered on 05/18/20at 21:25; Start 05/16/20 at 21:45 Insulin Glargine (Lantus Syringe) 5 unit QHS SQ Last administered on 05/20/20at 21:14; Start 05/16/20 at 21:45 Insulin Human Lispro (HumaLOG) 0-7 UNITS TIDACHC SQ ; Start 05/16/20 at 21:45 Dextrose (Dextrose 50%-Water Syringe) 12.5 gm PRN Q15MIN PRN IV SEE COMMENTS; Start 05/16/20 at 21:15 Heparin Sodium (Porcine) (Heparin Sodium) 5,000 unit Q8HRS SQ Last administered on 05/21/20at 06:13; Start 05/16/20 at 22:00 Ceftriaxone Sodium (Rocephin) 1 gm Q24H IVP Last administered on 05/19/20at 17:19; Start 05/17/20 at 14:00; Stop 05/19/20 at 18:00; Status DC Albuterol Sulfate (Ventolin Neb Soln) 2.5 mg RTQID NEB Last administered on 05/21/20at 07:26; Start 05/17/20 at 08:00 Tramadol HCl (Ultram) 50 mg PRN Q6HRS PRN PO MODERATE PAIN, SEVERE PAIN Last administered on 05/21/20at 07:50; Start 05/17/20 at 13:30 Tizanidine HCl (Zanaflex) 4 mg PRN Q8HRS PRN PO MUSCLE SPASMS Last administered on 05/20/20at 21:09; Start 05/17/20 at 13:15 Cefdinir (Omnicef) 300 mg HS PO Last administered on 05/20/20at 21:09; Start at 21:00 Active Scripts Active Cefdinir 300 Mg Capsule 1 Cap PO BID Dok (Docusate Sodium) 100 Mg Capsule 100 Mg PO PRN BID PRN 14 Days Guaifenesin 100 Mg/5 Ml Liquid 200 Mg PO PRN Q4HRS PRN 10 Days Tylenol (Acetaminophen) 325 Mg Tablet 650 Mg PO PRN Q4HRS PRN 14 Days Synthroid (Levothyroxine Sodium) 25 Mcg Tablet 25 Mcg PO DAILY06 30 Days Reported Glipizide 5 Mg Tablet 1 Tab PO BID Polyethylene Glycol 3350 2,500 Gm Powder 17 Gm PO DAILY PRN Culturelle (Lactobacillus Rhamnosus Gg) 1 Each Cap.sprink 1 Cap PO DAILY 30 Days Albuterol Sulfate Conc Neb Soln (Albuterol Sulfate) 2.5 Mg/0.5 Ml Vial.neb 1 Vial NEB QID Ropinirole Hcl 1 Mg Tablet 1 Mg PO HS Carvedilol 25 Mg Tablet 0.5 Tab PO BID Plavix (Clopidogrel Bisulfate) 75 Mg Tablet 1 Tab PO DAILY Aspir 81 (Aspirin) 81 Mg Tablet. 1 Tab PO DAILY Pantoprazole Sodium (Pantoprazole Sodium) 40 Mg Tablet. 40 Mg PO DAILY Amlodipine Besylate 10 Mg Tablet 10 Mg PO HS Vitals/I & O Vital Sign - Last 24 Hours 05/20/20 05/20/20 05/20/20 05/20/20 11:00 15:00 15:04 16:38 Temp 98.2 98.1 98.2 98.1 Pulse 90 92 92 Resp 18 18 B/P (MAP) 132/86 (101) 130/78 (95) 130/78 Pulse Ox 95 96 95 O2 Delivery Room Air Room Air Room Air 05/20/20 05/20/20 05/20/20 05/20/20 19:00 20:00 20:32 21:09 Temp 97.6 97.6 Pulse 79 79 Resp 18 B/P (MAP) 153/85 (107) 153/85 Pulse Ox 95 95 O2 Delivery Room Air Room Air Room Air 05/20/20 05/21/20 05/21/20 05/21/20 23:00 03:00 03:02 04:02 Temp 98.2 98.2 98.2 98.2 Pulse 79 79 Resp 18 18 B/P (MAP) 150/78 (102) 144/73 (96) Pulse Ox 94 95 O2 Delivery Room Air Room Air Room Air Room Air 05/21/20 05/21/20 05/21/20 05/21/20 06:50 07:26 07:50 07:50 Temp 97.7 97.7 Pulse 76 76 Resp 18 16 B/P (MAP) 133/74 (93) 133/74 Pulse Ox 93 O2 Delivery Room Air Room Air Room Air 05/21/20 07:54 O2 Delivery Room Air Intake and Output 05/20/20 05/20/20 05/21/20 15:00 23:00 07:00 Intake Total 720 ml 240 ml 0 ml Balance 720 ml 240 ml 0 ml Justicifation of Admission Dx: Justifications for Admission: Justification of Admission Dx: Yes Acute Renal Failure: RF Can't Be Managed Outpt DEISY RUSSO MD May 21, 2020 09:41
[2020-05-21 10:27] VITALS: BP 132/75
--- NOTE | 2020-05-21 11:34 | SNU/HH DC ---
DISCHARGE WITH HOME HEALTH DISCHARGE INFORMATION: Final Diagnosis: Problems Medical Problems: (1) Urinary tract infection Status: Acute Condition on Discharge: Stable CODE STATUS: Code Status: Full HOME HEALTH: Face to Face: I certify this patient is under my care and that I, or a nurse practitioner or physician's teacher assistant working with me, had a face to face encounter that meets the physician face to face encounter requirements with this patient on []. Medical Complications: Other (Compression fracture) Custodial For: Assess & Educate Safety RN For Eval/Treatment: Yes Physical Therapy For: Evalulation/Treatment Occupational Therapy For: Evaluation/Treatment Home Health Aide For: Self-care OVEN HEATER For: Community Resources Pt Meets Homebound Status: Poor coordination w/ amb. POST DISCHARGE ORDERS: Activity Instructions for Disc: Activity as tolerated Weight Bearing Status after Di: As tolerated Bathing Instructions: No Tub Bath until see Dr. NUÑEZ AFTER DISCHARGE: Cardiac Wound/Incision Care: Keep wound/cast CDI CHECKS AFTER DISCHARGE: Checks after discharge: Check blood press - daily, Check blood sugar, ac/hs, Check your Temp as needed, Weigh Yourself Daily TREATMENT/EQUIPMENT ORDERS: Adaptive Equipment Issued: None, Front wheeled walker Discharge Respiratory Equipmen: Oxygen, Nebulizer CERTIFICATION STATEMENT: Certification Statement: Certification Statement: Based on the above finding, I certify that this patient is confined to the home and needs intermittent custodial care, physical therapy and/or speech therapy, or continues to need occupational therapy.~ This patient is under my care, and I have initiated the establishment of the plan of care.~ This patient will be followed by myself or a community physician who will periodically review the plan of care. Home Meds Active Scripts Cefdinir (CEFDINIR) 300 Mg Capsule, 1 CAP PO BID for UTI, #14 CAP Prov:CHAITANYA LOPEZ MD 01/05/20 Docusate Sodium (DOK) 100 Mg Capsule, 100 MG PO PRN BID PRN for CONSTIPATION for 14 Days, #30 CAP Prov:CHAITANYA LOPEZ MD 01/05/20 Guaifenesin (GUAIFENESIN) 100 Mg/5 Ml Liquid, 200 MG PO PRN Q4HRS PRN for COUGH for 10 Days, #120 LIQUID Prov:CHAITANYA LOPEZ MD 01/05/20 Acetaminophen (TYLENOL) 325 Mg Tablet, 650 MG PO PRN Q4HRS PRN for TEMP OVER 100.4F OR MILD PAIN for 14 Days, #60 TAB Prov:CHAITANYA LOPEZ MD 01/05/20 Levothyroxine Sodium (SYNTHROID) 25 Mcg Tablet, 25 MCG PO DAILY06 for THYROID for 30 Days, #30 TAB Prov:CHAITANYA LOPEZ MD 11/02/19 Reported Medications Glipizide (GLIPIZIDE) 5 Mg Tablet, 1 TAB PO BID for diabetes, #60 TAB 3 Refills 05/16/20 Polyethylene Glycol 3350 (POLYETHYLENE GLYCOL 3350) 2,500 Gm Powder, 17 GM PO DAILY PRN for CONSTIPATION, #255 GM 0 Refills 01/03/20 Lactobacillus Rhamnosus Gg (CULTURELLE) 1 Each Cap.sprink, 1 CAP PO DAILY for PROBIOTIC for 30 Days, #30 CAP 0 Refills 01/03/20 Albuterol Sulfate (ALBUTEROL SULFATE CONC NEB SOLN) 2.5 Mg/0.5 Ml Vial.neb, 1 VIAL NEB QID for SOB, #120 VIAL 5 Refills 01/03/20 Ropinirole Hcl (ROPINIROLE HCL) 1 Mg Tablet, 1 MG PO HS for Tremors, TAB 09/26/19 Carvedilol (CARVEDILOL) 25 Mg Tablet, 0.5 TAB PO BID, #180 TAB 1 Refill 09/05/15 Clopidogrel Bisulfate (PLAVIX) 75 Mg Tablet, 1 TAB PO DAILY, #90 TAB 1 Refill 05/19/15 Aspirin (ASPIR 81) 81 Mg Tablet.dr, 1 TAB PO DAILY for Cardiac, #30 TAB 5 Refills 05/19/15 Pantoprazole Sodium (PANTOPRAZOLE SODIUM ) 40 Mg Tablet.dr, 40 MG PO DAILY for GERD, TAB 10/15/14 Amlodipine Besylate (AMLODIPINE BESYLATE) 10 Mg Tablet, 10 MG PO HS, TAB 10/15/14 LATASHA OTERO III DO May 21, 2020 11:34
--- NOTE | 2020-05-21 12:49 | DS ---
DATE OF DISCHARGE: 05/21/2020 ADMISSION DIAGNOSES: Dehydration, urinary tract infection, compression fracture, acute kidney injury. DISCHARGE DIAGNOSES: Resolving urinary tract infection, resolving acute kidney injury, resolving dehydration. HOSPITAL COURSE: The patient is a pleasant 85-year-old male who presented with UTI, dehydration. He also had some back pain. He did have a compression fracture. He was admitted. We gave him IV antibiotics and fluids. The plan is to do a kyphoplasty Wednesday, but we cannot keep him in the hospital along. Overall, he looks great today. I saw and examined him. We plan to discharge to home. DISPOSITION: Home. ACTIVITY: As tolerated. DIET: Low sodium. MEDICATIONS: Please see the MRAD. TOTAL TIME: 33 minutes. LATASHA OTERO DO DR: SANDHYA/asia JOB#: [id number] / [id number]
[2020-05-21 14:20] VITALS: BP 163/85
--- NOTE | 2020-05-21 15:03 | NUR ---
SON HERE. PATIENT IS INSISTING ON GOING HOME AND WILL NOT GO TO [facility]. SON UNCERTAIN ABOUT HER GOING HOME. MITCH INSISTS ON GOING HOME. REVIEWED DISCHARGE INSTRUCTIONS. BRACE ON INSTRUCTED TO RETURN TO [facility] NEXT WEDNESDAY AT 0700 FOR KYPHOPLASTY. SALINE LOCK DC'D SCRIPTS GIVEN TO SON FOR TRAMADOL AND LIDODERM PATCHES. INSTRUCTED NOT TO TAKE HER BABY ASA AND PLAVIX UNTIL AFTER PROCEDURE; VERBALIZED UNDERSTANDING. REVIEWED MEDICATIONS THAT NEED TO BE GIVEN TODAY; V/U.
== END 2020-05-21 15:12 | disposition home health service (06) | DRG 689 ==
LOC: ER 11:58 → 4 NORTH 15:02
PROVIDERS: ADMIT Internal Medicine; ATTEND Internal Medicine
DX: N39.0 Urinary tract infection, site not specified (principal); N17.0 Acute kidney failure with tubular necrosis; G93.41 Metabolic encephalopathy; M48.54XA Collapsed vertebra, not elsewhere classified, thoracic region, initial encounter for fracture; I13.0 Hypertensive heart and chronic kidney disease with heart failure and stage 1 through stage 4 chronic kidney disease, or unspecified chronic kidney disease; I47.2 Ventricular tachycardia; N12 Tubulo-interstitial nephritis, not specified as acute or chronic; B96.4 Proteus (mirabilis) (morganii) as the cause of diseases classified elsewhere; E11.22 Type 2 diabetes mellitus with diabetic chronic kidney disease; E78.5 Hyperlipidemia, unspecified; E86.0 Dehydration; G62.9 Polyneuropathy, unspecified; I25.5 Ischemic cardiomyopathy; I25.10 Atherosclerotic heart disease of native coronary artery without angina pectoris; I50.9 Heart failure, unspecified; J44.9 Chronic obstructive pulmonary disease, unspecified; K27.9 Peptic ulcer, site unspecified, unspecified as acute or chronic, without hemorrhage or perforation; N18.9 Chronic kidney disease, unspecified; R32 Unspecified urinary incontinence; Z66 Do not resuscitate; Z82.49 Family history of ischemic heart disease and other diseases of the circulatory system; Z83.3 Family history of diabetes mellitus; Z86.73 Personal history of transient ischemic attack (TIA), and cerebral infarction without residual deficits; Z87.440 Personal history of urinary (tract) infections; Z87.891 Personal history of nicotine dependence; Z90.49 Acquired absence of other specified parts of digestive tract; Z95.0 Presence of cardiac pacemaker; Z95.1 Presence of aortocoronary bypass graft; Z90.710 Acquired absence of both cervix and uterus; Z95.3 Presence of xenogenic heart valve; F41.9 Anxiety disorder, unspecified; M19.90 Unspecified osteoarthritis, unspecified site
CPT/HCPCS: 36415; 36600; 72128; 72131; 78300; 80048; 80053; 81001; 82962; 85025; 86140; 87077; 87086; 87186; 94640; 94760; 96361; 96374; 96375; A9503; J0696; J1644; J1815; J3010; J7030; 97535-GO; 99285-25; G0378; J7613

== ENCOUNTER 2020-05-28 06:29 | Outpatient (CLI) | payer MEDICARE ==
[~2020-05-28] VITALS: Ht 160 cm; Wt 59.0 kg
[2020-05-28] VITALS (9 sets, daily range): BP systolic 115–157; BP diastolic 78–94
[~2020-05-28 06:29] MED LIST changes: +ENAL20TA PO; -ENAL20TA10 PO
[2020-05-28 08:04] LABS: BASO % 1 % (0-3); EOS # 0.1 x10^3/uL (0.0-0.7); EOS % 3 % (0-3); HEMATOCRIT 35.9 % (36.0-47.0); HEMOGLOBIN 11.9 g/dL (12.0-15.5); LYMPH # 1.6 x10^3/uL (1.0-4.8); LYMPH % 33 % (24-48); MEAN CORPUSCULAR HEMOGLOBIN 28 pg (25-35); MEAN CORPUSCULAR HGB CONC 33 g/dL (31-37); MEAN CORPUSCULAR VOLUME 84 fL (79-100); MONO # 0.5 x10^3/uL (0.0-1.1); MONO % 10 % (0-9); NEUT # 2.6 x10^3/uL (1.8-7.7); NEUT % 53 % (31-73); PLATELET COUNT 234 x10^3/uL (140-400); RED BLOOD COUNT 4.27 x10^6/uL (3.50-5.40); RED CELL DISTRIBUTION WIDTH 18.1 % (11.5-14.5); WHITE BLOOD COUNT 4.9 x10^3/uL (4.0-11.0)
[2020-05-28] MEDS ORDERED: ASPI81TA59 PO (08:04)
[2020-05-28] MEDS ORDERED: CLOP75TA57 PO (08:04)
[2020-05-28] MEDS ORDERED: toradol PO (08:08)
[2020-05-28 08:13] LABS: CREATININE 1.5 mg/dL (0.6-1.0); GFR 32.8; POTASSIUM 4.2 mmol/L (3.5-5.1)
[2020-05-28 08:15] LABS: PROTHROMBIN TIME PATIENT 12.8 SEC (11.7-14.0)
[2020-05-28] MEDS ORDERED: IOHEXOL 240 MG/ML 50ML VIAL. ONE (09:10)
[2020-05-28] MEDS ORDERED: LIDOCAINE 1% Multi-Dose 20 ML VIAL. ONE (09:10)
[2020-05-28] MEDS ORDERED: fentaNYL PF VIAL 100 MCG/2 ML VIAL ONE (10:13)
[2020-05-28] MEDS ORDERED: ceFAZolin SODIUM IV Push 1 GM VIAL. IVP ONE ×2 (10:13→10:45)
[2020-05-28] MEDS ORDERED: MIDAZOLAM HCL/PF 2 MG/2 ML VIAL. ONE (10:13)
[2020-05-28] MEDS ORDERED: LIDOCAINE 1% Multi-Dose 20 ML VIAL. INJ ONE (10:45)
[2020-05-28] MEDS ORDERED: MIDAZOLAM HCL/PF 2 MG/2 ML VIAL. IV ONE (10:45)
[2020-05-28] MEDS ORDERED: fentaNYL PF VIAL 100 MCG/2 ML VIAL IV ONE (10:45)
[2020-05-28] MEDS ORDERED: IOHEXOL 240 MG/ML 50ML VIAL. IJ ONE (10:45)
[2020-05-28] MEDS ORDERED: CONTRAST GIVEN. MC PRN (11:00)
--- NOTE | 2020-05-28 13:06 | NUR ---
Discharge Note: MTICH STEWART Discharge instructions and discharge home medications reviewed with Family Member and a copy given. All questions have been answered and understanding verbalized. The following instructions and handouts were given: kyphoplasty,incision care,moderate sedation Discontinued lines and drains: Peripheral IV intact. Patient discharged to Home or Self Care withFamily Membervia Wheelchair
--- NOTE | 2020-05-29 08:25 | RAD ---
Fluoroscopically guided kyphoplasty T10 Indication: Pathologic T10 compression fracture secondary to osteoporosis with severe pain refractory to conservative treatment measures, which limits activities of daily living Fluoro time:8.4 minutes Dose area product: 13.8 Gycm2 Moderate sedation: The patient was appropriately monitored by a qualified independent observer throughout the course of the moderate sedation. [id number] sedation time:34 minutes Consent: The risks and benefits of the procedure were discussed with the patient. Informed consent was obtained. The patient was brought to the fluoroscopy suite and placed in the prone position. A timeout procedure was performed. Preprocedural antibiotics were administered. Procedure: The overlying skin was prepped and draped in the usual sterile fashion. All elements of maximal sterile barrier technique including the use of a cap, mask, sterile gown, sterile gloves, large sterile sheet, appropriate hand hygiene, and 2% chlorhexidine for cutaneous antisepsis (or acceptable alternative antiseptic per current guidelines) were followed for this procedure. Using a left transpedicular approach, and direct fluoroscopic guidance, a trocar needle was advanced to the posterior third of the targeted T10 vertebral body. Vertebral augmentation balloon was then coaxially introduced through the needle, into the more central vertebral body and was deployed. A curved cement delivery needle was advanced into the contralateral vertebral body. Contrast opacified polymethylmethacrylate was then very slowly and carefully introduced through the vertebral augmentation needle, using strict fluoroscopic control. Once adequate filling had been achieved the needles were removed and manual pressure was held. No significant extravasation or complication was identified. Sterile dressing was applied. Patient tolerated the procedure well, without apparent complication. Impression: Fluoroscopically guided kyphoplasty, T10
== END 2020-05-28 13:08 | disposition home or self-care (01) ==
LOC: INTRAD 06:29
PROVIDERS: ATTEND Internal Medicine
DX: M48.54XA Collapsed vertebra, not elsewhere classified, thoracic region, initial encounter for fracture (principal)
CPT/HCPCS: 22513; 36415; 80048; 85025; 85610; 85730; 99152; 99153; C1713; J0690; J2250; J3010; J3490; Q9966

== ENCOUNTER → 2020-07-22 | Outpatient (CLI) | payer MEDICARE ==
[2020-05-28 12:30] VITALS: BP 128/78
[~2020-07-22] MED LIST changes: +ASPI81TA59 PO; -ENAL20TA PO; +ENAL20TA10 PO; +toradol PO
--- NOTE | 2020-07-22 19:50 | KCIC ---
Lumbar spine 5 views: Reason for examination: Acute low back pain. Fall risk. Fell 4-5 days ago. History of vertebroplasty. Evaluate for new fracture. Comparison is made to previous study dated 01/02/2020. The vertebral bodies of the lumbar spine are normally aligned anteriorly and posteriorly with no acute fracture or subluxation seen. There continues to be mild anterior wedge compression deformity at the T12 vertebral body which is stable. Posterior elements appear to be maintained. The intervertebral discs are maintained. No gross abnormality is seen at the sacrum or sacroiliac joints. Note is made of arteriosclerotic vascular calcification and there is some mild aneurysmal dilatation of the distal abdominal aorta measuring 3.3 cm in greatest AP dimension. IMPRESSION: Mild anterior wedge compression deformity of T12 which is stable. No acute abnormality lumbar spine. Mild aneurysmal dilatation of the distal abdominal aorta measuring 3.3 cm in AP dimension. Electronically signed by: Adrianna Conde MD (07/22/2020 7:47 PM) REENA
== END | disposition home or self-care (01) ==
LOC: KCIC 13:16
PROVIDERS: ATTEND Family Medicine
DX: M54.5 Low back pain (principal); M43.8X4 Other specified deforming dorsopathies, thoracic region; I71.4 Abdominal aortic aneurysm, without rupture
CPT/HCPCS: 72110

== ENCOUNTER → 2020-07-26 | Outpatient (CLI) | payer MEDICARE ==
[2020-05-28 12:30] VITALS: BP 128/78
--- NOTE | 2020-07-26 13:25 | KCIC ---
CT LUMBAR SPINE WO CONTRAST Indication: Low back pain, fall 1 week ago Technique: Noncontrast CT imaging was performed of the lumbar spine, multiplanar reconstruction images submitted. One or more of the following individualized dose reduction techniques were utilized for this examination: 1. Automated exposure control 2. Adjustment of the mA and/or kV according to patient size 3. Use of iterative reconstruction technique. Comparison: May 16, 2020 Findings: There is bone demineralization. Lumbar vertebral body stature is maintained. However there is new superior endplate compression deformity of T12, not fully included on this exam. There is no significant osseous retropulsion. There is again more advanced degenerative disc disease on the right at L3-4, [id number] degenerative disc disease at L2-3 and minimally at L1-2. There is multilevel lumbar facet degenerative change. There are posterior bulges L1-L2 through L3-4. There is likely at least mild narrowing of the far lateral recesses bilaterally at L2-3. There is overall moderate spinal stenosis including narrowing of the lateral recesses bilaterally at L3-4. There is mild narrowing of the far left lateral recess at L4-5. There is moderate to severe narrowing of the right L3-4 neural foramen by facet and disc osteophyte complex and bulge contacting the exiting right L3 nerve root, moderate narrowing on the right at L2-3 by facet. There is mild levoscoliosis centered near L3-4. There is very minimal left lateral subluxation L3 relative to L4 and very mild right lateral subluxation L2 relative to L3. Not fully evaluated, there is infrarenal abdominal aortic aneurysm about 3.4 cm as seen previously. There is scattered plaque of the abdominal aorta and visualized iliac arteries. There are some small calcifications of the bilateral kidneys. IMPRESSION: 1. Not fully included, there is new superior T12 compression fracture without significant osseous retropulsion. There is bone demineralization. 2. There is degenerative disc disease greatest at L3-4, to lesser degree of more superior lumbar levels. 3. There is narrowing of the right L3-4 neural foramen with contact of the exiting right L3 nerve root, lesser degree of narrowing on the right at L2-3. 4. There is moderate spinal stenosis at L3-4, other mild lateral recess stenosis. 5. There is infrarenal abdominal aortic aneurysm about 3.4 cm in caliber. There are bilateral renal calculi although may be vascular in etiology. Electronically signed by: Martin Banuelos MD (07/26/2020 1:22 PM) [id number]
== END ==
LOC: KCIC CT 10:42
PROVIDERS: ATTEND Family Medicine
DX: M51.36 Other intervertebral disc degeneration, lumbar region (principal); M48.061 Spinal stenosis, lumbar region without neurogenic claudication; I71.4 Abdominal aortic aneurysm, without rupture; N20.0 Calculus of kidney
CPT/HCPCS: 72131